=== PATIENT | female | born 2000 | race Caucasian/White ===

== ENCOUNTER 2020-03-06 19:14 | Inpatient (IN) | payer OTHER ==
[~2020-03-06] VITALS: Ht 166.4 cm; Wt 70.0 kg
--- OUTSIDE RECORDS SUMMARY | ~2020-03-06 | XMS | Encounter Summary ---
Demographics + + + | Address | [address] | | | [place] [address] | + + + | Home Phone | | + + + | Preferred Language | Unknown | + + + | Marital Status | Single | + + + | Scientologist Affiliation | Unknown | + + + | Race | White | + + + | Ethnic Group | Not or | + + + Author + + + | Author | [facility] | + + + | Organization | [facility] | + + + | Address | Unknown | + + + | Phone | Unavailable | + + + Support + + +---------+ + | Name | Relationship | Address | Phone | + + +---------+ + | Raheem | ECON | Unknown | | | Raza | | | | + + +---------+ + Care Team Providers + +------+ + | Care Front End Developer Designer Name | Role | Phone | + +------+ + | No Pcp Per Patient | PCP | Unavailable | + +------+ + Reason for Visit + + + | Reason | Comments | + + + | Obstetric US Scan | | + + + Encounter Details +--------+ + + + + | Date | Type | Department | Care Team | Description | +--------+ + + + + | 07/28/ | | [place] | [place], | Obstetric US Scan | | 2019 | | [facility] [address] | MD Lizabeth [address] | | | [address] | | | | | [address] [place], [place] | [place], [place] | | | | | [address] | [address] | | | | | [phone] | [phone] | | | | | | | | +--------+ + + + + Social History + + + +--------+------+ | Tobacco Use | Types | Packs/Day | Years | Date | | | | | Used | | + + + +--------+------+ | Current Every Day | Cigarettes | | 3 | | | Smoker | | | | | + + + +--------+------+ + +---+---+---+ | Smokeless Tobacco: | | | | | Never Used | | | | + +---+---+---+ + + | Comments: will review SCRIPT book | + + + + +---------+ + | Alcohol Use | Drinks/Week | oz/Week | Comments | + + +---------+ + | Not Currently | | | | + + +---------+ + + + + | Sex Assigned at | Date Recorded | | | | + + + | Not on file | | + + + + + + + | Job Start Date | Occupation | Industry | + + + + | Not on file | Not on file | Not on file | + + + + + + + + | Travel History | Travel Start | Travel End | + + + + + + | No recent travel history available. | + + documented as of this encounter Last Filed Vital Signs + + + + + | Vital Sign | Reading | Time Taken | Comments | + + + + + | Blood Pressure | 102/60 | 07/28/2019 9:02 AM | | | | | PDT | | + + + + + | Pulse | - | - | | + + + + + | Temperature | - | - | | + + + + + | Respiratory Rate | - | - | | + + + + + | Oxygen Saturation | - | - | | + + + + + | Inhaled Oxygen | - | - | | | Concentration | | | | + + + + + | Weight | 56.7 kg (125 lb) | 07/28/2019 9:02 AM | | | | | PDT | | + + + + + | Height | 167 cm (5' 5.75") | 07/28/2019 9:02 AM | | | | | PDT | | + + + + + | Body Mass Index | 20.33 | 07/28/2019 9:02 AM | | | | | PDT | | + + + + + documented in this encounter Progress Notes Lizabeth Paez MD - 07/28/2019 9:15 AM PDTHistory: 18 y.o. at 8w1d by LMP p resenting for a first trimester OB ultrasound. S: Tanisha is a at 8w1d who presents today for a first trimester ultrasound. She com planes of congestion in the morning. O: General: NAD Abdomen: Soft, gravid. Psych: Appropriate mood and affect Ultrasound performed today -viable . See imaging for full details of ultrasound. A: Tanisha is a at 8w1d who presents today for a first trimester ultrasound. P: 1. OB intake to follow 2. Genetic testing- Discussed watching video with nurse during intake. 3. Patient to follow up for OB exam. Viable hurt with CRL measuring 1.53cm, consistent with 8w0d. FHR: 142 bpm Placenta: Not Visualized Uterus: normal Right Ovary: Not visualized Left Ovary: Not visualized Impression: 18 y.o. at 8w1d weeks gestation. Ultrasound consistent with menstrual dating. Recommendations: I reviewed the findings of today's ultrasound with Tanisha Michel I recommend a follow up ultrasound for complete anatomy 18-22 weeks gestation. Completed and reviewed by Lizabeth Paez MD on 07/28/19 Janessa Lucas MA - 07/28/2019 9:15 AM PDTPt c/o rhinitis in the morning. JANESSA BRITO MA Electronically si gned by Janessa Brito MA at 07/28/2019 9:25 AM PDTdocumented in this encounter Plan of Treatment +--------+ + + + + | Date | Type | Specialty | Care Team | Description | +--------+ + + + + | 03/08/ | | Obstetrics & | Ama Rahman | | | 2020 | | Gynecology | MD Vickie,S [address] | | | | | | [place], | | | | | | [place] [address] | | | | | | [phone] | | | | | | | | +--------+ + + + + documented as of this encounter Procedures + +--------+ + + + | Procedure Name | Priori | Date/Time | Associated Diagnosis | Comments | | | ty | | | | + +--------+ + + + | US CLINIC OB <14 | Routin | 07/28/2019 | Supervision of | Results for this | | WEEKS SINGLE FETUS | e | 9:24 AM | low-risk , | procedure are in the | | | | PDT | first trimester | results section. | + +--------+ + + + documented in this encounter Results CLINIC OB <14 WEEKS SINGLE FETUS (07/28/2019 9:24 AM PDT) + + + | Impressions | Performed At | + + + | Viable hurt with CRL measuring 1.53cm, consistent | [facility] | | with 8w0d. FHR: 142 bpm Placenta: Not Visualized Uterus: normal | [facility] | | Right Ovary: Not visualized Left Ovary: Not visualized | | | Impression: 18 y.o. at 8w1d weeks gestation. Ultrasound | | | consistent with menstrual dating. Recommendations: I reviewed | | | the findings of today's ultrasound with Tanisha Michel I | | | recommend a follow up ultrasound for complete anatomy 18-22 weeks | | | gestation. Completed and reviewed by Lizabeth Paez MD on | | | 07/28/19 | | + + + + +---------+ + + | Performing | Address | City/State/Zipcode | Phone Number | | Organization | | | | + +---------+ + + | [facility] | | | | | TESTING | | | | + +---------+ + + documented in this encounter Visit Diagnoses + + | Diagnosis | + + | Supervision of low-risk , first trimester - Primary | + + documented in this encounter
--- OUTSIDE RECORDS SUMMARY | ~2020-03-06 | XMS | Encounter Summary ---
Demographics + + + | Address | [address] | | | [place] [address] | + + + | Home Phone | | + + + | Preferred Language | Unknown | + + + | Marital Status | Single | + + + | Nondenominational Affiliation | Unknown | + + + | Race | White | + + + | Ethnic Group | Not or | + + + Author + + + | Author | [facility] | + + + | Organization | [facility] | + + + | Address | [...] Team Providers + +------+ + | Care Layaway Clerk Name | Role | Phone | + +------+ + | No Pcp Per Patient | PCP | Unavailable | + +------+ + Reason for Visit Maternity Services (Routine) + +--------+ + + + + | Status | Reason | Specialty | Diagnoses / | Referred By | Referred To | | | | | Procedures | Contact | Contact | + +--------+ + + + + | Authorized | | | Diagnoses | Josiah | Maria Ines [facility] | | | | | Supervision | Ama Johnston, | Telemedicine | | | | | of high | [facility] [address] | | | | [address] | | | | | | [place], | [place], | | | | | | [place] | [place] | | | | | | [address] | [address] | | | | | | Phone: | Phone: | | | | | | [phone] | [phone] | | | | | | Fax: | Fax: | | | | | | [phone] | [phone] | + +--------+ + + + + Encounter Details +--------+ + + + + | Date | Type | Department | Care Team | Description | +--------+ + + + + | 12/17/ | Ancillary | Perinatology | | | | 2019 | Procedure | Telemedicine [address] | | | | | | | | | | | | [place], [place] | | | | | | [address] | | | | | | [phone] | | | +--------+ + + + [...] recent travel history available. | + + + + + + | COVID-19 Exposure | Response | Date Recorded | + + + + | In the last month, have you been in contact | No / Unsure | 12/18/2019 8:41 AM | | with someone who was confirmed or | | PDT | | suspected to have Coronavirus / COVID-19? | | | + + + + documented as of this encounter Plan of Treatment +--------+ + + + + | Date | Type | Specialty | Care Team | Description | +--------+ + + + + | 03/08/ | | Obstetrics & | Ama Rahman | | | 2019 | | Gynecology | MD Vickie,S [address] | | | | | | [place], | | | | | | [place] [address] | | | | | | [phone] | | | | | | | | +--------+ + + + + documented as of this encounter Procedures + +--------+ + + + | Procedure Name | Priori | Date/Time | Associated Diagnosis | Comments | | | ty | | | | + +--------+ + + + | TELEMEDICINE | Routin | 12/18/2019 | | Results for this | | ULTRASOUND | e | 8:42 AM | screening for | procedure are in the | | | | PDT | chromosomal anomaly | results section. | | | | | by amniocentesis | | + +--------+ + + + documented in this encounter Results TELEMEDICINE ULTRASOUND (12/18/2019 8:42 AM PDT) + + | Specimen | + + | | + + + + + | Narrative | Performed At | + + + | [facility] | [facility] | | OBSTETRICAL ULTRASOUND REPORT | RADIOLOGY OB US | | | | | Pat. Name: TANISHA LANDRUM Pat. No: [id number] Study | | | Date: 12/18/2019 9:31am , Age: 02 2000, 19 | | | Pregnancies: 2, Para 0010 LMP: 06/01/2019 | | | GA by LMP: 28w4d GA by Last: 28w4d GA by US: 28w5d GA | | | Selected: 28w4d (From Known E) LAUREN: 03/07/2020 | | | Referring MD: Ita Glasgow MD Wellness Assistant: Debra Ayon CPT4: | | | 13272 | | | | | | MEASUREMENTS & AGE GROWTH EVALUATION | | | Measurement GA Range Srce %for GA Ratios | | | ----- ---- ------- BPD 7.4 | | | cm 29w4d (23w3y-27a5g) Hadl BPD 70% FL/BPD 0.73 (0.71 - 0.87) HC | | | 27.7 cm 30w2d (00m6m-44u4n) Hadl HC 75% FL/AC 0.23 (0.20 - 0.24) | | | AC 23.7 cm 28w0d (98r4j-63p6s) Hadl AC 38% HC/AC 1.17 (0.99 - | | | 1.18) FL 5.4 cm 28w4d (52r8g-08l5e) Hadl FL 49% CI 0.75 | | | (0.70 - 0.86) GA for sonogram 28w5d (77a2r-00s5y) Weight | | | Estimate: based on (BPD,HC,AC,FL) Hadlock Weight: 1232 gm | | | (1052-1412gm) Had | | | : 2lbs, 11oz | | | Normal: 1241 gm (839-1791gm) Bren | | | Wt% 49% for 28w4d Heart | | | Rate: 144 bpm Amniotic Fluid Index: 10.6cm (09.3-23.0) Q1: 3.5cm | | | Q2: 1.1cm Q3: 2.9cm Q4: 3.0cm | | | | | | EVAL, PLACENTA Presentation: Cephalic Placenta: | | | Posterior Previa: No previa seen Cord Insert: Normal Heart | | | Rate: 144 bpm Anatomy!Normal!Abnormal!Suboptimal!Prev. | | | Seen!Comments | | | | | | Cranium ! x ! ! ! x | | | ! CSP ! x ! ! ! | | | ! Cerebral Vent! x ! ! ! | | | ! Choroid Plexu! ! ! ! | | | x ! Cerebellum ! x ! ! ! | | | x ! Cisterna Magn! ! ! ! | | | x ! Nuchal Fold ! ! ! ! | | | x ! Nose/Lips ! x ! ! ! | | | ! Face/Profile ! x ! ! ! | | | ! Nasal Bone ! ! ! ! | | | x ! Palate/Mandib! ! ! ! | | | x ! Orbits ! x ! ! | | | ! x ! Chest/Lungs/R! ! ! | | | ! x ! Cardiac [place]/! ! ! | | | ! x ! Four Chamber ! ! ! | | | ! x ! LVOT ! x ! ! | | | ! ! RVOT ! x ! ! | | | ! x ! 3V Trachael V! x ! ! | | | ! ! IVC/SVC ! ! ! | | | ! x ! Aortic Arch ! ! ! | | | ! x ! Diaphragm ! x ! ! | | | ! ! Stomach ! x ! | | | ! ! x ! Situs ! ! | | | ! ! x ! Gallbladder ! ! | | | ! ! x ! Liver/Spleen ! ! | | | ! ! x ! Bowel ! ! | | | ! ! x ! 3VC ! | | | ! ! ! x ! Abdominal Wal! | | | ! ! ! x ! Kidneys ! | | | ! ! ! x ! Bladder | | | ! x ! ! ! x ! Cervical | | | Spin! ! ! ! x ! Thoracic | | | Spin! ! ! ! x ! Lumbar | | | Spine ! ! ! ! x ! Sacral | | | Spine ! ! ! ! x ! Right | | | Humerus! ! ! ! x ! Right | | | Radius/! ! ! ! x ! Right | | | Hand ! ! ! ! x ! Left | | | Humerus ! ! ! ! x ! Left | | | Radius/U! ! ! ! x ! Right | | | Femur ! ! ! ! x ! | | | Right Tibia/F! ! ! ! x ! | | | Right Foot ! ! ! ! x ! | | | Left Femur ! ! ! ! x ! | | | Left Tibia/Fi! ! ! ! x ! | | | Left Foot ! ! ! ! x | | | ! Skin ! ! ! ! x | | | ! Sex (M) ! x ! ! ! | | | x ! Sex ! ! ! ! | | | x ! | | | | | | CLINICAL SUMMARY Type of Gestation: Del Rosario Uterus and adnexae: | | | No abnormalities seen. There is heart motion and gross | | | movement. Ultrasound cannot detect all / abnormalities. | | | Impression: 19 year old at 28 4/7 weeks gestation with a | | | history of LMP=8 wks US in office who presents for follow up | | | anatomy. 1. Single living intrauterine in cephalic | | | presentation. 2. Posterior placenta without placenta previa. 3. | | | Growth is appropriate, consistent with 28 4/7th weeks gestation. 4. | | | Targeted anatomic survey with no major abnormalities | | | identified. Anatomy is now completed. Recommendations: 1. Follow up | | | ultrasound as clinically indicated. Thank you very much for allowing | | | us to help care for your patient. If you have any questions, please | | | feel free to call our 24 hour phone consult number at any time and | | | ask for the perinatologist plastic injection mold maker. [phone] or [phone] | | | SUNITHA LIPSCOMB MD <Electronic Signature> 12/18/2019 | | | 10:58am I have personally reviewed the images and, if | | | necessary, edited the report. I agree with the report as now | | | presented. | | + + + + + | Procedure Note | + + | Service Account, Radiant Res In Interface - 12/18/2019 3:43 PM PDT | | [facility] OBSTETRICAL ULTRASOUND | | REPORT Pat. Name: | | TANISHA LANDRUM MPat. No: [id number] Date: 12/18/2019 9:31amDOB, Age: | | 2000, 19Pregnancies: 2, Para 0010LMP: 06/01/2019 GA by LMP: | | 80x8rXS by Last: 86m3lYG by US: 31s4oWP Selected: 28w4d (From Known E)LAUREN: | | 03/07/2020Referring MD: Ita Glasgow MDSonographer: Lloyd Ayon4: | | [id number] | | & AGE GROWTH EVALUATIONMeasurement GA Range Srce %for | | GA Ratios ----- ---- ------- BPD 7.4 | | cm 29w4d (67y4q-54p2f) Hadl BPD 70% FL/BPD 0.73 (0.71 - 0.87)HC 27.7 cm 30w2d | | (19u5r-83a2p) Hadl HC 75% FL/AC 0.23 (0.20 - 0.24)AC 23.7 cm 28w0d (95j3o-26c4y) Hadl | | AC 38% HC/AC 1.17 (0.99 - 1.18)FL 5.4 cm 28w4d (92n8h-38m9p) Hadl FL 49% CI | | 0.75 (0.70 - 0.86)GA for sonogram 28w5d (80u9w-44e2l) Weight Estimate:based on | | (BPD,HC,AC,FL) Hadlock Weight: 1232 gm (1052-1412gm) Had | | : 2lbs, 11oz Normal: 1241 gm | | (839-1791gm) Bren Wt% 49% for 21y1jZtieg Heart | | Rate: 144 bpmAmniotic Fluid Index: 10.6cm (09.3-23.0)Q1: 3.5cm Q2: 1.1cm Q3: 2.9cm | | Q4: 3.0cm | | | | EVAL, PLACENTAPresentation: CephalicPlacenta: PosteriorPrevia: No previa seenCord | | Insert: NormalFetal Heart Rate: 144 bpmFetal Anatomy!Normal!Abnormal!Suboptimal!Prev. | | Seen!Comments Crani | | um ! x ! ! ! x !CSP ! x ! ! ! | | !Cerebral Vent! x ! ! ! !Choroid Plexu! ! | | ! ! x !Cerebellum ! x ! ! ! x !Cisterna | | Magn! ! ! ! x !Nuchal Fold ! ! ! ! | | x !Nose/Lips ! x ! ! ! !Face/Profile ! x ! | | ! ! !Nasal Bone ! ! ! ! x | | !Palate/Mandib! ! ! ! x !Orbits ! x ! ! | | ! x !Chest/Lungs/R! ! ! ! x !Cardiac [place]/! | | ! ! ! x !Four Chamber ! ! ! ! x | | !LVOT ! x ! ! ! !RVOT ! x ! ! | | ! x !3V Trachael V! x ! ! ! !IVC/SVC ! | | ! ! ! x !Aortic Arch ! ! ! ! x | | !Diaphragm ! x ! ! ! !Stomach ! x ! ! | | ! x !Situs ! ! ! ! x !Gallbladder ! | | ! ! ! x !Liver/Spleen ! ! ! ! x | | !Bowel ! ! ! ! x !3VC ! ! ! | | ! x !Abdominal Wal! ! ! ! x !Kidneys ! | | ! ! ! x !Bladder ! x ! ! ! x | | !Cervical Spin! ! ! ! x !Thoracic Spin! ! ! | | ! x !Lumbar Spine ! ! ! ! x !Sacral Spine ! | | ! ! ! x !Right Humerus! ! ! ! x | | !Right Radius/! ! ! ! x !Right Hand ! ! ! | | ! x !Left Humerus ! ! ! ! x !Left Radius/U! | | ! ! ! x !Right Femur ! ! ! ! x | | !Right Tibia/F! ! ! ! x !Right Foot ! ! ! | | ! x !Left Femur ! ! ! ! x !Left Tibia/Fi! | | ! ! ! x !Left Foot ! ! ! ! x | | !Skin ! ! ! ! x !Sex (M) ! x ! ! | | ! x !Sex ! ! ! ! x | | ! CLINICAL | | SUMMARYType of Gestation: SingletonUterus and adnexae: No abnormalities seen.There is | | heart motion and gross movement.Ultrasound cannot detect all / | | abnormalities.Impression: 19 year old at 28 4/7 weeks gestation with a history | | of LMP=8 wks US in office who presents for follow up anatomy.1. Single living | | intrauterine in cephalic presentation.2. Posterior placenta without placenta | | previa. 3. Growth is appropriate, consistent with 28 4/7th weeks gestation.4. Targeted | | anatomic survey with no major abnormalities identified. Anatomy is now | | completed.Recommendations:1. Follow up ultrasound as clinically indicated.Thank you very | | much for allowing us to help care for your patient. If you have any questions, please | | feel free to call our 24 hour phone consult number at any time and ask for the | | perinatologist plastic injection mold maker. [phone] or [phone], JAMIE, | | <Electronic Signature> 12/18/2019 10:58amI have personally reviewed the | | images and, if necessary, edited the report. I agree with the report as now presented. | |Liver/Spleen ! ! ! ! x ! | |Bowel ! ! ! ! x ! | |3VC ! ! ! ! x ! | |Abdominal Wal! ! ! ! x ! | |Kidneys ! ! ! ! x ! | |Bladder ! x ! ! ! x ! | |Cervical Spin! ! ! ! x ! | |Thoracic Spin! ! ! ! x ! | |Lumbar Spine ! ! ! ! x ! | |Sacral Spine ! ! ! ! x ! | |Right Humerus! ! ! ! x ! | |Right Radius/! ! ! ! x ! | |Right Hand ! ! ! ! x ! | |Left Humerus ! ! ! ! x ! | |Left Radius/U! ! ! ! x ! | |Right Femur ! ! ! ! x ! | |Right Tibia/F! ! ! ! x ! | |Right Foot ! ! ! ! x ! | |Left Femur ! ! ! ! x ! | |Left Tibia/Fi! ! ! ! x ! | |Left Foot ! ! ! ! x ! | |Skin ! ! ! ! x ! | |Sex (M) ! x ! ! ! x ! | |Sex ! ! ! ! x ! | | | |CLINICAL SUMMARY | |Type of Gestation: Del Rosario | |Uterus and adnexae: No abnormalities seen. | |There is heart motion and gross movement. | |Ultrasound cannot detect all / abnormalities. | |Impression: 19 year old at 28 4/7 weeks gestation with a | |history of LMP=8 | |wks US in office who presents for follow up anatomy. | |1. Single living intrauterine in cephalic presentation. | |2. Posterior placenta without placenta previa. | |3. Growth is appropriate, consistent with 28 4/7th weeks | |gestation. | |4. Targeted anatomic survey with no major abnormalities | |identified. Anatomy is now completed. | |Recommendations: | |1. Follow up ultrasound as clinically indicated. | |Thank you very much for allowing us to help care for your patient. | |If you have any questions, please feel free to call our 24 hour | |phone consult number at any time and ask for the perinatologist on | |call. [phone] or [phone] | |SUNITHA LIPSCOMB MD | | | |<Electronic Signature> 12/18/2019 10:58am | | | | | |I have personally reviewed the images and, if necessary, edited the report. I agree with t he report as now presented. | + + + +---------+ + + | Performing | Address | City/State[facility] | Phone Number | | Organization | | | | + +---------+ + + | [facility] | | | | | [place] | | | | + +---------+ + + documented in this encounter Visit Diagnoses + + | Diagnosis | + + | screening for chromosomal anomaly by amniocentesis Screening for | | chromosomal anomalies by amniocentesis | + + documented in this encounter"
--- OUTSIDE RECORDS SUMMARY | ~2020-03-06 | XMS | Encounter Summary ---
Demographics + + + | Address | [address] | | | [place] [address] | + + + | Home Phone | | + + + | Preferred Language | Unknown | + + + | Marital Status | Single | + + + | Episcopal Affiliation | Unknown | + + + | Race | White | + + + | Ethnic Group | Not or | + + + Author + + + | Organization | Unknown | + + + | Address | [...] Team Providers + +------+ + | Care Buyer Assistant Name | Role | Phone | + +------+ + | No Pcp Per Patient | PCP | Unavailable | + +------+ + Encounter Details +--------+--------+ + + + | Date | Type | Department | Care Team | Description | +--------+--------+ + + + | 11/05/ | Travel | | | | | 2020 | | | | | +--------+--------+ + + + Social History + + [...] 2020 | | Gynecology | MD Vickie,S [address] | | | | | | [place], | | | | | | [place] [address] | | | | | | [phone] | | | | | | | | +--------+ + + + + documented as of this encounter Visit Diagnoses Not on filedocumented in this encounter"
--- OUTSIDE RECORDS SUMMARY | ~2020-03-06 | XMS | Encounter Summary ---
Demographics + + + | Address | [address] | | | [place] [address] | + + + | Home Phone | | + + + | Preferred Language | Unknown | + + + | Marital Status | Single | + + + | Mu-Ism Affiliation | Unknown | + + + [...] Team Providers + +------+ + | Care Low Heel Builder Name | Role | Phone | + +------+ + | No Pcp Per Patient | PCP | Unavailable | + +------+ + Encounter Details +--------+--------+ + + + | Date | Type | Department | Care Team | Description | +--------+--------+ + + + | 05/18/ | Travel | | | | | [...] in contact | No / Unsure | 02/16/2020 7:52 AM | | with someone who was [...] 2020 | | Gynecology | MD Vickie,S [address] | | | | | | [place], | | | | | | [place] [address] | | | | | | [phone] | | | | | | | | +--------+ + + + + documented as of this encounter Visit Diagnoses Not on filedocumented in this encounter"
--- OUTSIDE RECORDS SUMMARY | ~2020-03-06 | XMS | Encounter Summary ---
Demographics + + + | Address | [address] | | | [place] [address] | + + + | Home Phone | | + + + | Preferred Language | Unknown | + + + | Marital Status | Single | + + + | Jain Affiliation | Unknown | + + + | Race | White | + + + | Ethnic Group | Not or | + + + Author + + + | Author | [facility] | + + + | Organization | [facility] | + + + | Address [...] Team Providers + +------+ + | Care Kindergarten Paraprofessional Name | Role | Phone | + +------+ + | No Pcp Per Patient | PCP | Unavailable | + +------+ + Reason for Visit + + + | Reason | Comments | + + + | care | | + + + Encounter Details +--------+ + + + + | Date | Type | Department | Care Team | Description | +--------+ + + + + | 02/15/ | | [place] | Philippe, | care | | 2019 | | [facility] [address] | MD Lizabeth [address] | | | | [address] | | | | [address] [place], [place] | [facility] | | | | | [address] | [address] | | | | | [phone] | [phone] | | | | | | | [...] + + + | Blood Pressure | 102/70 | 02/16/2020 7:58 AM | | | | | PDT [...] + + + + | Weight | 68.9 kg (152 lb) | 02/16/2020 7:58 AM | | | | | PDT | | + + + + + | Height | - | - | | + + + + + | Body Mass Index | 24.72 | 07/28/2019 9:25 AM | | | | | PDT | | + + + + + documented in this encounter Patient Instructions Patient Instructions Cori Campos MA - 02/16/2020 8:00 AM PDTContinue to monitor for an y contractions, fluid leakage, bleeding or decreased movement. If you have bleeding or decreased movement, are in labor or think your water has broken, please go to [facility] ([facility]). Please call if you have any concerns. After hours call [facility] if you think you are in labor to let them know you are coming in. [phone]. Please read chapters 11 and 32 in your book. Week 37 of Your : Care Instructions Your Care Instructions You are near the end of your and you're probably pretty uncomfortable. It may b e harder to walk around. Lying down probably isn't comfortable either. You may have trouble getting to sleep or staying asleep. Most women deliver their babies between 37 and 42 weeks. This is a good time to think about packing a bag for the hospital with items you'll need. Then you'll be ready when labor star ts. Follow-up care is a pena part of your treatment and safety. Be sure to make and go to all ap pointments, and call your doctor if you are having problems. It's also a good idea to know y our test results and keep a list of the medicines you take. How can you care for yourself at home? Learn about is best for your baby and good for you. Breast milk has antibodies to help your baby fight infections. Mothers who breastfeed often lose weight faster, because making milk copeland calories. Learning the best ways to hold your baby will make easier. Let your partner bathe and diaper the baby to keep your partner from feeling left out. S nuggle together when you breastfeed. You may want to learn how to use a breast pump and store your milk. If you choose to bottle feed, make the feeding feel like so you can rizzo w ith your baby. Always hold your baby and the bottle. Do not prop bottles or let your baby fa ll asleep with a bottle. Learn about crying It is common for babies to cry for 1 to 3 hours a day. Some cry more, some cry less. Babies don't cry to make you upset or because you are a bad parent. Crying is how your baby communicates. Your baby may be hungry; have gas; need a diaper c hange; or feel cold, warm, tired, lonely, or tense. Sometimes babies cry for unknown reasons . If you respond to your baby's needs, he or she will learn to trust you. Try to stay calm when your baby cries. Your baby may get more upset if he or she senses that you are upset. Know how to care for your Your baby's umbilical cord stump will drop off on its own, usually between 1 and 2 weeks . To care for your baby's umbilical cord area: ? Clean the area at the bottom of the cord 2 or 3 times a day. ? Pay special attention to the area where the cord attaches to the skin. ? Keep the diaper folded below the cord. ? Use a damp washcloth or cotton ball to sponge bathe your baby until the stump has come of f. Your baby's first dark stool is called meconium. After the meconium is passed, your baby will develop his or her own bowel pattern. ? Some babies, especially breastfed babies, have several bowel movements a day. Others have one or two a day, or one every 2 to 3 days. ? Breastfed babies often have loose, yellow stools. Formula-fed babies have more formed sto ols. ? If your baby's stools look like little pellets, he or she is constipated. After 2 days of constipation, call your baby's doctor. If your baby will be circumcised, you can care for him at home. ? Gently rinse his penis with warm water after every diaper change. Do not try to remove th e film that forms on the penis. This film will go away on its own. Pat dry. ? Put petroleum ointment, such as Vaseline, on the area of the diaper that will touch your baby's penis. This will keep the diaper from sticking to your baby. ? Ask the doctor about giving your baby acetaminophen (Tylenol) for pain. Where can you learn more? To learn more about "Week 37 of Your : Care Instructions", log into your MiNOWireless a ccount at [email or web address]. You can enter N257 in the "[employer] Library" search box . Not on MiNOWireless? Review the Intean Poalroath Rongroeurngt section of your After Visit Summary for directions on otto rodriguez to sign up. Current as of: June 05, 2018 Content Version: [id number] [employer]. Care instructions adapted under license by [facility] & [facility]. If you have questions about a medical condition or this instr uction, always ask your healthcare professional. [employer] disclaims any barbara anty or liability for your use of this information. documented in this encounter Progress Notes Lizabeth Paez MD - 02/16/2020 8:00 AM PDTS: Tanisha is a at 37w1d who prese nts today for a routine OB visit. Today she has been having some maurilio diop contractions and lower back pain. She has good movement. O: BP 102/70 | Wt 68.9 kg (152 lb) | BMI 24.72 kg/m | BSA 1.79 m General: NAD Abdomen: Soft, gravid. Psych: Appropriate mood and affect A: Tanisha is a at 37w1d who presents today for a routine OB visit. P: F/u in 1 week for a routine OB visit. GBS collected today. Growth and AMANDA normal today. documented in th is encounter Plan of Treatment +--------+ + + + + | Date | Type | Specialty | Care Team | Description | +--------+ + + + + | 03/08/ | | Obstetrics & | Ama Rahman | | 2019 | | Gynecology | MD Vickie,S [address] | | | | | | [place], | | | | | | [place] [address] | | | | | | [phone] | | | | | | | | +--------+ + + + + documented as of this encounter Procedures + +--------+ + + + | Procedure Name | Priori | Date/Time | Associated Diagnosis | Comments | | | ty | | | | + +--------+ + + + | CLINIC OB FOLLOW | Routin | 02/16/2020 | Uterine size-date | Results for this | | UP PER [facility]ETUS | e | | discrepancy in third | procedure are in the | | | | | trimester | results section. | + +--------+ + + + documented in this encounter Results CLINIC OB FOLLOW UP PER [facility]ETUS (02/16/2020) + + + | Impressions | Performed At | + + + | History: 19 y.o. at 37w1d gestation presenting for a | [facility] | | growth scan secondary to size less than dates. Findings: [facility] | CARE TESTING | | in cephalic presentation. Placenta: Anterior FHR: 153 bpm BPD: | | | 9.16 cm (67.6%) 37w 1d HC: 32.10 cm (9.6%) 36w 2d AC: 31.91 cm (27%) | | | 35w 6d FL: 7.04 cm (23.2%) 36w 1d EFW: 2845 grams (6lb 4 oz) | | | (45.6% for GA) AMANDA: 11.56 cm MVP: 3.71 cm Impression: | | | 19 y.o. at 37w1d gestation with normal growth at the | | | 45.6%ile and normal AMANDA. Recommendations: Follow up as | | | clinically indicated. Performed by Lizabeth Paez MD. Type | | | of ultrasound: ABDOMINAL. Read by Lizabeth Paez MD | | + + + + +---------+ [...] Diagnosis | + + | Supervision of high risk in third trimester - Primary Unspecified high-risk | | | + + | Encounter for screening for Streptococcus B | + + | Uterine size-date discrepancy in third trimester Uterine size date discrepancy, | | antepartum condition or complication | + + documented in this encounter
--- OUTSIDE RECORDS SUMMARY | ~2020-03-06 | XMS | Encounter Summary ---
Demographics + + + | Address | [address] | | | [place] [address] | + + + | Home Phone | | + + + | Preferred Language | Unknown | + + + | Marital Status | Single | + + + | Judaism Affiliation | Unknown | + + + [...] Team Providers + +------+ + | Care Carry All Driver Name | Role | Phone | + +------+ + | No Pcp Per Patient | PCP | Unavailable | + +------+ + Encounter Details +--------+--------+ + + + | Date | Type | Department | Care Team | Description | +--------+--------+ + + + | 03/01/ | Travel | | | | | [...] in contact | No / Unsure | 03/01/2020 10:28 AM | | with someone who was [...] 2020 | | Gynecology | MD Vickie,S [address] | | | | | | [place], | | | | | | [place] [address] | | | | | | [phone] | | | | | | | | +--------+ + + + + documented as of this encounter Visit Diagnoses Not on filedocumented in this encounter"
--- OUTSIDE RECORDS SUMMARY | ~2020-03-06 | XMS | Encounter Summary ---
Demographics + + + | Address | [address] | | | [place] [address] | + + + | Home Phone | | + + + | Preferred Language | Unknown | + + + | Marital Status | Single | + + + | Oriental Orthodox Affiliation | Unknown | + + + [...] Team Providers + +------+ + | Care Carton Stenciler Name | Role | Phone | + +------+ + | No Pcp Per Patient | PCP | Unavailable | + +------+ + Encounter Details +--------+--------+ + + + | Date | Type | Department | Care Team | Description | +--------+--------+ + + + | 09/15/ | Travel | | | | | 2019 | | | | | +--------+--------+ + [...] E | | | | | | [place], | | | | | | [place] [address] | | | | | | [phone] | | | | | | | | +--------+ + + + + documented as of this encounter Visit Diagnoses Not on filedocumented in this encounter"
--- OUTSIDE RECORDS SUMMARY | ~2020-03-06 | XMS | Encounter Summary ---
Demographics + + + | Address | [address] | | | [place] [address] | + + + | Home Phone | | + + + | Preferred Language | Unknown | + + + | Marital Status | Single | + + + | Church Affiliation | Unknown | + + + | Race | White | + + + | Ethnic Group | Not or | + + + Author + + + | Author | [facility] | + + + | Organization | [facility] | + + + | [...] Team Providers + +------+ + | Care Fleet Assistant Name | Role | Phone | + +------+ + | No Pcp Per Patient | PCP | Unavailable | + +------+ + Encounter Details +--------+ + + + + | Date | Type | Department | Care Team | Description | +--------+ + + + + | 12/31/ | Telephone-S | [place] | Ama Rahman | No Show | | 2019 | cheduled | [facility] [address] | MD Vickie,S [address] | | | | | [address] [facility] | [place], | | | | | [address] [place], [place] | [place] [address] | | | | | [address] | [phone] | | | | | [phone] | | | +--------+ + + + [...] + + documented as of this encounter Patient Instructions Patient Instructions Yves Ambrocio MA - 01/01/2020 8:32 AM PDTPrenatal Visit - Week 30 Please read chapters 8 and 30 in your book. You may be getting tired of all these messages about nutrition. However, it really is that important now and for the rest of your life. Your health and the health of your child rosendo depend on the nutritional choices you make NOW. Your qwtu-tl-ly-born baby will learn hi s/her first nutritional lessons from you. Remember, it s mostly about QUALITY. Eat whole foods, nutritious foods, unprocessed food s. Avoid food that has added sugar, fat, and salt. Avoid food from fast food restaur ants. Cook and prepare food at home. Stop drinking soft drinks. Have a small, healthy snack in between your meals. Have some protein and avoid too many ca rbohydrates (sugar and starch). There is still plenty of time in your to change your nutritional habits ..and b oth you and your baby will benefit from it. Are you having difficulty making healthy choice s?.....call us ..we ll get you together with our framing specialist. your baby We want you to breastfeed your baby. Your tongue presser wants you to breastfeed your baby. Every health authority on Earth wants you to breastfeed your baby. Breastfed babies are he althier. Period. Breastfed babies have fewer allergies. Breastfed babies have fewer illnesses. Breastfed b abies are less likely to have weight problems later in life. Breast is best. Even if you can only breastfeed your baby for a few days or weeks, the milk that your baby receives from your body will make him/her healthier. We want to help you and your baby get off to a good start. It s not always easy to get t o the point where you offer the breast and your baby effortlessly latches to the nipple in fact, for some women, it can be quite difficult. is an art that both you and your baby will need some time and effort to perfect. But we can help you. After the of your baby, our nurses will help get you started wi th the real thing .and, although you have breasts and your baby has an instinct to suck , it takes a little learning and experience to get the two of you latched together. But, we ll be there to help. : How you feed your is a personal choice. The experts agree that breas tfeeding is best. The [place] [employer] recommends exclusive , sta rting as soon as possible after delivery, for 6 months and continuing for at least one year. The longer and more exclusively a mother breastfeeds her baby, the greater the health benefi ts they both receive. As you consider how you will feed your baby, talk to your provider, your baby s provider, your partner, family members and friends who have breastfed their babies. You also might fi nd it helpful to talk to a addictions recovery specialist. They can tell you more about things such as latching your baby, positioning, milk supply and pumping and storing your breast milk. The specialists in [facility] are: Wilma Linn, RN, IBCLC - [facility] Paige Kearney RN, IBCLC - [facility] Department In [facility]: Gerri Hopkins RN, IBCLC [phone] In [facility] [place]: Roseline Capps NP [phone] Gricelda Syed RN [phone] Further Sources for Support and Information: [facility] [place], [place] (Bilingual Pashto)- [phone] [email or web address] [facility] [place] [place] [phone] [email or web address] We encourage our patients to either register for the class or schedule a cons ult with one of the specialists. Breast Pumps Many, if not most, new mothers will benefit from having a good breast pump. A breast pump can: -help establish a good milk supply -provide your milk to a who might not be able to suck -help a mother whose nipples are flat or inverted -provide a means of obtaining and storing breast milk once your supply is well established. Many health insurance companies will now pay for you to have an electric breast pump (they know they ll save money in the long run since mothers and babies who breastfeed are health ier!). Call your insurance company and find out if you need a prescription from us to obtain your pump. We ll be more than happy to help. Planning your NEXT It may seem too early to talk about it but it s not. You need to start two conversa tions about control / family planning / contraception. One conversation with us, and another conversation with your mate. Spacing your babies too closely is not good for your health or theirs. And an unplanned pr egnancy can put a kink in anyone s life. We want you to be able to plan your next . Reliable control methods are vince dily available, easy to use, and can do a near-perfect job helping you to decide when you licona ve another . We re experts in contraception. Let s talk about it at your future visits. Let s licona ve a solid plan in place before you even have this baby. Forget the rumors; forget what you ve heard; bring an open mind to the possibilities. We can help find a family planning me thod that is best for you. Take charge of your fertility! You can plan when your occurs. It s still too early for that baby Here s another reminder about Labor call us, if you think you might be in labor. It is still way too early for your baby to be born. If you re in labor, we need time to get ready for your baby. The sooner you call us, the more time we have to prepare. So, if you have any of the following signs or symptoms, we want you to call and talk to us: ? Painful contractions of the uterus ? More than 4 contractions per hour ? A watery discharge from your vagina ? A bloody discharge from your vagina ? Constant pain on your uterus ? Uterine pain and signs/symptoms of infection (fever, chills, muscle aches, upper back chris n, or pain/burning when you urinate). Weeks 30 to 32 of Your : Care Instructions Your Care Instructions You have made it to the final months of your . By now, your baby is really startin g to look like a baby, with hair and plump skin. As you enter the final weeks of , the reality of having a baby may start to set in . This is the time to settle on a name, get your household in order, set up a safe nursery, and find quality maternal child nurse if needed. Doing these things in advance will allow you to focus on caring for and enjoying your new baby. You may also want to have a tour of your hospital 's labor and delivery unit to get a better idea of what to expect while you are in the [facility]. During these last months, it is very important to take good care of yourself and pay attent ion to what your body needs. If your doctor says it is okay for you to work, don't push your self too hard. Use the tips provided in this care sheet to ease heartburn and care for varic ose veins. If you haven't already had the Tdap shot during this , talk to your doctor about g etting it. It will help protect your against pertussis infection. Follow-up care is a pena part of your treatment and safety. Be sure to make and go to all ap pointments, and call your doctor if you are having problems. It's also a good idea to know y our test results and keep a list of the medicines you take. How can you care for yourself at home? Pay attention to your baby's movements You should feel your baby move several times every day. Your baby now turns less, and kicks and jabs more. Your baby sleeps 20 to 45 minutes at a time and is more active at certain times of day. If your doctor wants you to count your baby's kicks: ? Empty your bladder, and lie on your side or relax in a comfortable chair. ? Write down your start time. ? Pay attention only to your baby's movements. Count any movement except hiccups. ? After you have counted 10 movements, write down your stop time. ? Write down how many minutes it took for your baby to move 10 times. ? If an hour goes by and you have not recorded 10 movements, have something to eat or drink and then count for another hour. If you do not record 10 movements in either hour, call you r doctor. Ease heartburn Eat small, frequent meals. Do not eat chocolate, peppermint, or very spicy foods. Avoid drinks with caffeine, such as coffee, tea, and sodas. Avoid bending over or lying down after meals. Talk a short walk after you eat. If heartburn is a problem at night, do not eat for 2 hours before bedtime. Take antacids like Mylanta, Maalox, Rolaids, or Tums. Do not take antacids that have sod ium bicarbonate. Care for varicose veins Varicose veins are blood vessels that stretch out with the extra blood during . Your legs may ache or throb. Most varicose veins will go away after the . Avoid standing for long periods of time. Sit with your legs crossed at the ankles, not t he knees. Sit with your feet propped up. Avoid tight clothing or stockings. Wear support hose. Exercise regularly. Try walking for at least 30 minutes a day. Where can you learn more? To learn more about "Weeks 30 to 32 of Your : Care Instructions", log into your My Chart account at [email or web address]. You can enter X471 in the "Health Library" [facility] box. Not on RABThart? Review the MyChart section of your After Visit Summary for directions on ho w to sign up. Current as of: June 05, 2018 Content Version: [id number] [employer]. Care instructions adapted under license by [facility] [employer] & [facility]. If you have questions about a medical condition or this instr uction, always ask your healthcare professional. [employer] disclaims any barbara anty or liability for your use of this information. documented in this encounter Progress Notes Yves Ambrocio MA - 01/01/2020 8:32 AM PDT Ama Magana MD,[facility] - 12/30/2019 11:48 AM PDTTelephone E ncounter - Pt consented to a phone visit. Attempted to call pt multiple times, both at her appointment time as well as later, but no answer any time. Also called partner, but no answer. Left message on home phone and partne r's phone. [employer]'s cell phone number did not work. Will have schedulers reschedule pt. The patient's encounter was attempted via a telephone call today due to COVID-19 precaution enrique measures to limit the patient's unnecessary exposure. IUP @ 30w 4d: -PNC - UTD -Anatomy US - normal and complete -Tdap - previously declined, offer again at next in person visit -Tobacco use Ama Rahman MD,[facility] documented in this encounter Plan of Treatment +--------+ + + + + | Date | Type | Specialty | Care Team | Description | +--------+ + + + + | 03/08/ | | Obstetrics & | Ama Rahman | | | 2019 | | Gynecology | MD Vickie,S [address] | | | | | | [place], | | | | | | [place] [address] | | | | | | [phone] | | | | | | | | +--------+ + + + + documented as of this encounter Visit Diagnoses + + | Diagnosis | + + | Supervision of high risk in third trimester - Primary Unspecified high-risk | | | + + documented in this encounter
--- OUTSIDE RECORDS SUMMARY | ~2020-03-06 | XMS | Encounter Summary ---
Demographics + + + | Address | [address] | | | [place] [address] | + + + | Home Phone | | + + + | Preferred Language | Unknown | + + + | Marital Status | Single | + + + | Latter-Day Affiliation | Unknown | + + + | Race | White | + + + | Ethnic Group | Not or | + + + Author + + + | Author | [facility] | + + + | Organization | [facility] | + + + | [...] Team Providers + +------+ + | Care County Administrator Name | Role | Phone | + +------+ + | No Pcp Per Patient | PCP | Unavailable | + +------+ + Encounter Details +--------+ + + + + | Date | Type | Department | Care Team | Description | +--------+ + + + + | 04/18/ | Abstract | [place] | Popeye Segundo, | | | 2019 | | [facility] [address] | [place] [address] | | | | | [address] [facility] | [facility] | | | | | [address] [place] | [place], [place] | | | | | [address] | [address] | | | | | [phone] | | | +--------+ + + + + Social History + +-------+ +--------+------+ | Tobacco Use | Types | Packs/Day | Years | Date | | | | | Used | | + +-------+ +--------+------+ | Never Assessed | | | | | + +-------+ +--------+------+ + + + | Sex Assigned at [...] + + documented as of this encounter Progress Notes María Marcos, PA - 04/18/2019 2:37 PM PDTChart abstraction completed in preparatio n for OB Intake. General search for records in Care Everywhere or Nextgen with no results.El ectronically signed by María Segundo RN at 04/18/2019 2:52 PM PDTdocumented in this encounter Plan of Treatment +--------+ + + + + | Date | Type | Specialty | Care Team | Description | +--------+ + + + + | 03/08/ | | Obstetrics & | Ama Rahman | | | 2019 | | Gynecology | MD Vickie,S [address] | | | | | | [place], | | | | | | [place] [address] | | | | | | [phone] | | | | | | | | +--------+ + + + + documented as of this encounter Visit Diagnoses Not on filedocumented in this encounter"
--- OUTSIDE RECORDS SUMMARY | ~2020-03-06 | XMS | Clinical Summary ---
Demographics + + + | Address | [address] | | | [place] [address] | + + + | Home Phone [...] Author + + + | Author | [facility] | + + + | Organization | [facility] | + + + | Address | [...] Team Providers + +------+ + | Care Administrative Assistant Receptionist Name | Role | Phone | + +------+ + | No Pcp Per Patient | PCP | Unavailable | + +------+ + Source Comments ANTONI is fully live on both [facility] and [facility] In[facility].Formerly [facility], [facility] Allergies No Known Allergies Medications + + + +---------+------+------+-------+ | Medication | Sig | Dispensed | Refills | Star | End | Statu | | | | | | t | Date | s | | | | | | Date | | | + + + +---------+------+------+-------+ | vitamins | Take 1 tablet by | | 0 | | | Activ | | (with calcium) | mouth once daily. | | | | | e | | iron-folic acid 27 | | | | | | | | mg iron- 1 mg oral | | | | | | | | tablet | | | | | | | + + + +---------+------+------+-------+ Active Problems + + + | Problem | Noted Date | + + + | Tobacco use affecting , antepartum | 07/28/2019 | + + + + + | Overview: 07/28/19: Smoking 3 cigarettes daily. Reviewing | | SCRIPT book to see if she would like to use this program. | + + + + + | Supervision of high risk in third trimester | 07/25/2019 | + + + + + | Overview: Formatting of this note might be different from the | | original.FOB: Second Parent Name: Raheem Reyes 8-10 | | WEEKS (Intake & First tri U/S): Labs: [X] Rh: Lab | | Results Component Value Date ABO A 04/23/2019 RH Positive | | 04/23/2019 [X] Antibody screen: Neg[X] GC/CT: Neg[X] Pap: N/A[X] | | Urine Cx: Neg[X] Varicella: vaccinated[X] Rubella: [id number] WEEKS | | (Nuchal/Exam)Carrier Screening: CF ,SMA - DECLINES, FOB | | NEGGenetic Screening: [X] SIS- [X] Flu Shot (Jun-Aug) DECLINES[x] | | PKU carrier screen neg (FOB is a carrier)16-18 WEEKS- [id number] | | WEEKS[X] Ultrasound 19-20 weeks: SEX: male[X] Completion | | anatomy: [ ] Birthing bwempra07-46 WEEKS[X] Tdap (27-36 wks, no | | earlier): Declines tdap[X] 1hr gtt (24-28 wks - must be completed | | by 28): 112 [X] CBC 30 WEEKS[ ] surgical booking[ ] | | Sterilization consent:34-36 WEEKS[X] GBS at 36wks: Neg[x ] Breast | | Pump: Medela, 02/16/2020[x ] 3rd tri RN Visit: | | 02/16/2020POSTPARTUM[ ] ppBCM: | |[X] Rubella: Imm | | | |12-13 WEEKS (Nuchal/Exam) | |Carrier Screening: CF ,SMA - DECLINES, FOB NEG | |Genetic Screening: [X] SIS- | |[X] Flu Shot (Jun-Aug) DECLINES | |[x] PKU carrier screen neg (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 carrier) | | | |16-18 WEEKS- DECLINES | | | |20 WEEKS | |[X] Ultrasound 19-20 weeks: SEX: male | |[X] Completion anatomy: | |[ ] Birthing classes | | | |26-28 WEEKS | |[X] Tdap (27-36 wks, no earlier): Declines tdap | |[X] 1hr gtt (24-28 wks - must be completed by ): 112 | |[X] CBC | | | |30 WEEKS | |[ ] surgical booking | |[ ] Sterilization consent: | | | |34-36 WEEKS | |[X] GBS at 36wks: Neg | |[x ] Breast Pump: Medela, 02/16/2020 | |[x ] 3rd tri RN Visit: 02/16/2020 | | | | | |[ ] ppBCM: | + + + + + + | | Estimated Date of Delivery | Comments | + + + + | Yes | 03/07/2020 | Based on last | | | | menstrual period of | | | | 06/01/2019 | + + + + Encounters +--------+ + + + + | Date | Type | Specialty | Care Team | Description | +--------+ + + + + | 03/04/ | Telephone | Obstetrics & | Kurtisulos, | | | 2020 | | Gynecology | MD Lizabeth | | +--------+ + + + + | 03/02/ | Telephone | Obstetrics & | Ama Rahman | | | 2020 | | Gynecology | MD [facility] | (contractions) | +--------+ + + + + | 03/01/ | | Obstetrics & | Aam Rahman | care | | 2020 | | Cole [facility] MD, [facility] | | +--------+ + + + + | 03/01/ | Travel | | | | | 2019 | | | | | +--------+ + + + + | 02/15/ | | Obstetrics & | | care (3rd | | 2019 | | Gynecology | | Tri RN) | +--------+ + + + + | 02/15/ | | Obstetrics & | Pentopoulos, | care | | 2020 | | Gynecology | Analebony MD | | +--------+ + + + + | 02/15/ | Travel | | | | | 2020 | | | | | +--------+ + + + + | 01/25/ | Office | Obstetrics & | Ita Glasgow, | Supervision of [facility] | | 2019 | Visit | Gynecology | | risk in | | | | | | third trimester | | | | | | (Primary Dx) | +--------+ + + + + | 01/11/ | | Obstetrics & | Ita Glasgow, | care | 2019 | | Gynecology | | | +--------+ + + + + | 01/11/ | Travel | | | | | 2019 | | | | | +--------+ + + + + | 12/31/ | Telephone-S | Obstetrics & | Ama Rahman | No Show | | 2019 | margaritoled | Gynecology | MD [facility] | | +--------+ + + + + | 12/29/ | Telephone | Obstetrics & | Ama Rahman | Appointment (Phone | | 2019 | | Gynecology | MD [facility] | vs. Virtual Visit) | +--------+ + + + + | 12/21/ | Telephone | Obstetrics & | Ama Rahman | (lab | | 2019 | | Gynecology | MD [facility] | results from 12/17) | +--------+ + + + + | 12/17/ | | Obstetrics & | Ama Rahman | Blood draw; | | 2019 | | Gynecology | MD [facility] | Obstetric US Scan; | | | | | | care | +--------+ + + + + | 12/17/ | Ancillary | | | | | 2019 | Procedure | | | | +--------+ + + + + | 12/17/ | Travel | | | | | 2019 | | | | | +--------+ + + + + | 12/17/ | Transcribe | Radiology | Ama Rahman | | | 2020 | Orders | | MD [facility] | | +--------+ + + + + from Last 3 Months Immunizations + + + + | Name | Administration Dates | Next Due | + + + + | DTaP | 05/26/2005 | | + + + + | [id number]-[id number] | 01/09/2006 | | + + + + | HepA-Ped 2 Dose | 01/09/2006 | | + + + + | HepB-Peds | 05/26/2005, 1999, 1999 | | + + + + | MMR | 01/09/2006, 05/26/2005 | | + + + + | Polio-Inject | 11/21/2006, 05/26/2005 | | + + + + | Td (adult), 2 Lf | 11/21/2006 | | | tetanus toxoid, | | | | preservative free, | | | | adsorbed | | | + + + + | Tdap | 11/22/2012 | | + + + + | Varicella | 05/26/2005 | | + + + + Family History + + +------+ + | Medical History | Relation | Name | Comments | + + +------+ + | No Known Problems | Brother | | | + + +------+ + | No Known Problems | Brother | | | + + +------+ + | No Known Problems | Father | | | + + +------+ + | No Known Problems | Maternal | | | | | Grandfath | | | | | er | | | + + +------+ + | No Known Problems | Maternal | | | | | Grandmoth | | | | | er | | | + + +------+ + | Lupus | Paternal | | | | | Aunt | | | + + +------+ + | Diabetes | Paternal | | | | | Grandfath | | | | | er | | | + + +------+ + | Breast Cancer | Paternal | | | | | Grandmoth | | | | | er | | | + + +------+ + | No Known Problems | Sister | | | + + +------+ + | No Known Problems | Sister | | | + + +------+ + | No Known Problems | Sister | | | + + +------+ + | No Known Problems | Sister | | | + + +------+ + + +------+--------+ + | Relation | Name | Status | Comments | + +------+--------+ + | Brother | | | | + +------+--------+ + | Brother | | | | + +------+--------+ + | Father | | | | + +------+--------+ + | Maternal Grandfather | | Alive | | + +------+--------+ + | Maternal Grandmother | | Alive | | + +------+--------+ + | Paternal Aunt | | | | + +------+--------+ + | Paternal Grandfather | | Alive | | + +------+--------+ + | Paternal Grandmother | | Alive | | + +------+--------+ + | Sister | | | | + +------+--------+ + | Sister | | | | + +------+--------+ + | Sister | | | | + +------+--------+ + | Sister | | | | + +------+--------+ + Social History + + + +--------+------+ [...] | | + +---+---+---+ + + | Tobacco Cessation: Ready to Quit: Yes | | Comments: will review SCRIPT book | + + + + +---------+ + | Alcohol Use | Drinks/Week | oz/Week | Comments | + + +---------+ + | Not Currently | | | | + + +---------+ + + + + + | | Estimated Date of Delivery | Comments | + + + + | Yes | 03/07/2020 | Based on last | | | | menstrual period of | | | | 06/01/2019 | + + + + + + + | Sex Assigned [...] | | | + + + + Last Filed Vital Signs + + + + + | Vital Sign | Reading | Time Taken | Comments | + + + + + | Blood Pressure | 110/62 | 03/01/2020 10:32 AM | | | | | PDT [...] + + + + | Weight | 69.9 kg (154 lb) | 03/01/2020 10:32 AM | | | | | PDT | | + + + + + | Height | 167 cm (5' 5.75") | 07/28/2019 9:25 AM | | | | | PDT | | + + + + + | Body Mass Index | 25.05 | 07/28/2019 9:25 AM | | | | | PDT | | + + + + + Plan of Treatment +--------+ + + + + | Date | Type | Specialty | Care Team | Description | +--------+ + + + + | 03/08/ | | Obstetrics & | Ama Rahman | | | 2020 | | Gynecology | MD Vickie,S [address] | | | | | | [place], | | | | | | [place] [address] | | | | | | [phone] | | | | | | | | +--------+ + + + + + + + + + | Health Maintenance | Due Date | Last Done | Comments | + + + + + | Preconception/contra | | | | | ception counseling | 0 | | | | (one pena question) | | | | + + + + + | Pneumococcal | | | | | vaccination (1 of 1 | 6 | | | | - PPSV23) | | | | + + + + + | Influenza (Flu) | | | | | vaccination (Season | 0 | | | | Ended) | | | | + + + + + Procedures + +--------+ + + + | Procedure Name | Priori | Date/Time | Associated Diagnosis | Comments | | | ty | | | | + +--------+ + + + | CULTURE, STREP B | Routin | 02/16/2020 | Supervision of | Results for this | | | e | 7:53 AM | high risk | procedure are in the | | | | PDT | in third trimester | results section. | + +--------+ + + + | CLINIC OB FOLLOW | Routin | 02/16/2020 | Uterine size-date | Results for this | | UP PER FETUS | e | | discrepancy in third | procedure are in the | | | | | trimester | results section. | + +--------+ + + + | ID COLLECTION VENOUS | Routin | 12/18/2019 | Supervision of | | | BLOOD,VENIPUNCTURE | e | 10:10 AM | high risk | | | | | PDT | in third trimester | | + +--------+ + + + | CBC ONLY | Routin | 12/18/2019 | Supervision of | Results for this | | | e | 10:10 AM | high risk | procedure are in the | | | | PDT | in second trimester | results section. | + +--------+ + + + | CBC (HEMOGRAM ONLY) | Routin | 12/18/2019 | Supervision of | Results for this | | | e | 10:10 AM | high risk | procedure are in the | | | | PDT | in second trimester | results section. | + +--------+ + + + | GLUCOSE TOLERANCE | Routin | 12/18/2019 | Supervision of | Results for this | | TEST, 1 HOUR | e | 10:10 AM | high risk | procedure are in the | | | | PDT | in second trimester | results section. | + +--------+ + + + | US CLINIC OB FOLLOW | Routin | 12/18/2019 | Supervision of | Results for this | | UP PER FETUS - | e | 9:31 AM | high risk | procedure are in the | | EXTERNAL READ | | PDT | in third trimester | results section. | + +--------+ + + + | TELEMEDICINE | Routin | 12/18/2019 | | Results for this | | ULTRASOUND | e | 8:42 AM | screening for | procedure are in the | | | | PDT | chromosomal anomaly | results section. | | | | | by amniocentesis | | + +--------+ + + + from Last 3 Months Results CULTURE, STREP B (02/16/2020 7:53 AM PDT) + + + + + + | Component | Value | Ref Range | Performed | Pathologist | | | | | At | Signature | + + + + + + | CULTURE | Negative for Group B | | [facility] | | | RESULT | Beta Streptococci | | A MEDICAL | | | STREP B | | | CENTER | | + + + + + + + + | Specimen | + + | Swab - Pooled | | specimen from | | vaginal introitus | | and rectal swab | | (specimen) | + + + + + + + | Performing | Address | City/State/Zipcode | Phone Number | | Organization | | | | + + + + + | [facility] | And | [place] | [phone] | | [facility] | [address] | [address] | | + + + + + US CLINIC OB FOLLOW UP PER FETUS (02/16/2020) [...] | | | + +---------+ + + CBC ONLY (12/18/2019 10:10 AM PDT) + + + + + + | Component | Value | Ref Range | Performed | Pathologist | | | | | At | Signature | + + + + + + | WHITE CELL | 13.81 (H) | 3.50 - 10.80 | [facility] | | | COUNT | | K/cu mm | A MEDICAL | | | | | | CENTER | | + + + + + + | RED CELL | 3.54 (L) | 4.00 - 5.20 | [facility] | | | COUNT | | M/cu mm | A MEDICAL | | | | | | CENTER | | + + + + + + | HEMOGLOBIN | 11.1 (L) | 12.0 - 16.0 | [facility] | | | | | g/dL | A MEDICAL | | | | | | CENTER | | + + + + + + | HEMATOCRIT | 33.1 (L) | 36.0 - 46.0 % | [facility] | | | | | | A MEDICAL | | | | | | CENTER | | + + + + + + | MCV | 93.5 | 80.0 - 96.0 fL | [facility] | | | | | | A MEDICAL | | | | | | CENTER | | + + + + + + | MCH | 31.4 | 28.0 - 34.7 pg | [facility] | | | | | | A MEDICAL | | | | | | CENTER | | + + + + + + | MCHC | 33.5 | 33.0 - 35.5 | [facility] | | | | | g/dL | A MEDICAL | | | | | | CENTER | | + + + + + + | RDW | 12.0 | 11.5 - 14.5 % | [facility] | | | | | | A MEDICAL | | | | | | CENTER | | + + + + + + | PLATELET | 228 | 150 - 400 K/cu | [facility] | | | COUNT | | mm | A MEDICAL | | | | | | CENTER | | + + + + + + | MPV | 10.4 | 7.5 - 11.2 fL | [facility] | | | | | | A MEDICAL | | | | | | CENTER | | + + + + + + + + | Specimen | + + | Blood - Blood | | (substance) | + + + + + | Narrative | Performed At | + + + | No reflex rules apply to this test. | [facility] | | | [facility] | + + + + + + + + | Performing | Address | City/State/Zipcode | Phone Number | | Organization | | | | + + + + + | [facility] | And | [place], [place] | [phone] | | [facility] | [address] | [address] | | + + + + + GLUCOSE TOLERANCE TEST, 1 HOUR (12/18/2019 10:10 AM PDT) + +-------+ + + + | Component | Value | Ref Range | Performed | Pathologist | | | | | At | Signature | + +-------+ + + + | 1 HOUR | 112 | <130 mg/dL | [facility] | | | GLUCOSE - | | | A MEDICAL | | | 1GT | | | CENTER | | + +-------+ + + + + + | Specimen | + + | Blood - Blood | | (substance) | + + + + + | Narrative | Performed At | + + + | This test is to be used for the diagnosis of gestational diabetes | [facility] | | only. | MEDICAL CENTER | + + + + + + + + | Performing | Address | City/State/Zipcode | Phone Number | | Organization | | | | + + + + + | [facility] | [address] | [place], [place] | [phone] | | [facility] | [place] | [address] | | + + + + + CLINIC OB FOLLOW UP PER [facility] - EXTERNAL READ (12/18/2019 9:31 AM PDT) + + | Specimen | + + | | + + + + + | Narrative | Performed At | + + + | Ultrasound exam performed at [facility] ([facility] and will | [facility] | | be read/resulted at [facility]. | DEPARTMENT OF | | | RADIOLOGY | + + + + +---------+ + + | Performing | Address | City/State/Zipcode | Phone Number | | Organization | | | | + +---------+ + + | [facility] | | | | | RADIOLOGY | | | | + +---------+ + + TELEMEDICINE ULTRASOUND (12/18/2019 8:42 AM PDT) + + | Specimen | + + | | + + + + + | Narrative | Performed At | + + + | [facility] | [facility] | | OBSTETRICAL ULTRASOUND REPORT | RADIOLOGY OB US | | | | | Pat. Name: TANISHA LANDRUM Dieter Pat. No: [id number] Study | | | Date: 12/18/2019 9:31am , Age: 02 2000, 19 | | | Pregnancies: 2, Para 0010 LMP: 06/01/2019 | | | GA by LMP: 28w4d GA by Last: 28w4d GA by US: 28w5d GA | | | Selected: 28w4d (From Known E) LAUREN: 03/07/2020 | | | Referring MD: Ita Glasgow MD Sensor Operator: Debra Ayon CPT4: | | | 22336 | | | | | | MEASUREMENTS & AGE GROWTH EVALUATION | | | Measurement GA Range Srce %for GA Ratios | | | ----- ---- ------- BPD 7.4 | | | cm 29w4d (97o5t-27k4u) Hadl BPD 70% FL/BPD 0.73 (0.71 - 0.87) HC | | | 27.7 cm 30w2d (09e7h-50t7a) Hadl HC 75% FL/AC 0.23 (0.20 - 0.24) | | | AC 23.7 cm 28w0d (13k9q-04x8u) Hadl AC 38% HC/AC 1.17 (0.99 - | | | 1.18) FL 5.4 cm 28w4d (95u8d-94r2v) Hadl FL 49% CI 0.75 | | | (0.70 - 0.86) GA for sonogram 28w5d (22u8p-01l5j) Weight | | | Estimate: based on [...] | | | ! x ! Cardiac [place]/! ! ! | | | ! x [...] | | | ask for the perinatologist prep person. [phone] or [phone] | | | SUNITHA LIPSCOMB MD <Electronic Signature> 12/18/2019 | | | 10:58am I have personally reviewed the images and, if | | | necessary, edited the report. I agree with the report as now | | | presented. | | + + + + + | Procedure Note | + + | Dave Estes, Radiyamileth Res In Interface - 12/18/2019 3:43 PM PDT | | [facility] OBSTETRICAL ULTRASOUND | | REPORT Pat. Name: | | [facility] [id number] Date: 12/18/2019 9:31amDOB, Age: | | 2000, 19Pregnancies: 2, Para 0010LMP: 06/01/2019 GA by LMP: | | 18a4qVI by Last: 36b9mTD by US: [id number] Selected: 28w4d (From Known E)LAUREN: | | 03/07/2020Referring MD: Ita Glasgow MDSonographer: Lloyd Ayon4: | | [id number] | | & AGE GROWTH EVALUATIONMeasurement GA Range Srce %for | | GA Ratios ----- ---- ------- BPD 7.4 | | cm 29w4d (76o7e-66l7r) Hadl BPD 70% FL/BPD 0.73 (0.71 - 0.87)HC 27.7 cm 30w2d | | (14e0h-53t4t) Hadl HC 75% FL/AC 0.23 (0.20 - 0.24)AC 23.7 cm 28w0d (12c5c-28m5e) Hadl | | AC 38% HC/AC 1.17 (0.99 - 1.18)FL 5.4 cm 28w4d (03e3d-67q5n) Hadl FL 49% CI | | 0.75 (0.70 - 0.86)GA for sonogram 28w5d (37b7q-07j3x) Weight Estimate:based on | | (BPD,HC,AC,FL) [place] Weight: 1232 gm (1052-1412gm) Had | | : 2lbs, 11oz Normal: 1241 gm | | (839-1791gm) Bren Wt% 49% for 61p8yUknrg Heart | | Rate: 144 bpmAmniotic Fluid [...] x !Chest/Lungs/R! ! ! ! x !Cardiac [place]/! | | ! ! ! x !Four [...] and ask for the | | perinatologist prep person. [phone] or [phone], JAMIE, | | <Electronic Signature> 12/18/2019 10:58amI [...] ask for the perinatologist on | |call. [phone] or [phone] | |SUNITHA LIPSCOMB MD | | | [...] | | | + +---------+ + + from Last 3 Months Insurance + +--------+ +--------+-------+---------+--------+ | Payer | Benefi | Subscriber | Effect | Phone | Address | Type | | | t Plan | ID | emily | | | | | | / | | Dates | | | | | | Group | | | | | | + +--------+ +--------+-------+---------+--------+ | MARINE PROP[employer]ION TECHNICIAN MEDICAID | MARINE PROPULSION TECHNICIAN | xxxxxxxx | 03/31/20 | | | Medica | | | [place] | | 19-Pre | | | id | | | [place] | | sent | | | | + +--------+ +--------+-------+---------+--------+ | MARINE PROPULSION TECHNICIAN MEDICAID | MARINE PROPULSION TECHNICIAN | xxxxxxxx | 03/31/20 | | | Medica | | | [place] | | 19-Pre | | | id | | | [place] | | sent | | | | + +--------+ +--------+-------+---------+--------+ + +--------+ +--------+ + + | Guarantor Name | Accoun | Relation to | Date | Phone | Billing Address | | | t Type | Patient | of | | | | | | | | | | + +--------+ +--------+ + + | Tanisha Landrum | Person | Self [birth year] | [address] | | | al/Fam | | 2000 | [phone] | [place] [address] | | | arabella | | | 6 (Home) | | + +--------+ +--------+ + + | Tanisha Landrum | Person | Self [birth year] | [address] | | | al/Fam | | 2000 | [phone] | [place] [address] | | | arabella | | | 6 (Home) | | + +--------+ +--------+ + +
--- OUTSIDE RECORDS SUMMARY | ~2020-03-06 | XMS | Encounter Summary ---
Demographics + + + | Address | [address] | | | [place] [address] | + + + | Home Phone | | + + + | Preferred Language | Unknown | + + + | Marital Status | Single | + + + | Baptist Affiliation | Unknown | + + + [...] Team Providers + +------+ + | Care Banquet Steward Name | Role | Phone | + +------+ + | No Pcp Per Patient | PCP | Unavailable | + +------+ + Encounter Details +--------+--------+ + + + | Date | Type | Department | Care Team | Description | +--------+--------+ + + + | 08/18/ | Travel | | | | | [...] E | | | | | | [place], | | | | | | [place] [address] | | | | | | [phone] | | | | | | | | +--------+ + + + + documented as of this encounter Visit Diagnoses Not on filedocumented in this encounter"
--- OUTSIDE RECORDS SUMMARY | ~2020-03-06 | XMS | Encounter Summary ---
Demographics + + + | Address | [address] | | | [place] [address] | + + + | Home Phone | | + + + | Preferred Language | Unknown | + + + | Marital Status | Single | + + + | Adventism Affiliation | Unknown | + + + | Race | White | + + + | Ethnic Group | Not or | + + + Author + + + | Author | [facility] | + + + | Organization | [facility] | + + + [...] Team Providers + +------+ + | Care Signal Intelligence Analyst Name | Role | Phone | + [...] | +--------+ + + + + | 10/15/ | | [place] | Ita Glasgow, | care | | 2020 | | [facility] [address] | | [address] [place], [place] | | | | | [address] [place], [place] | [address] | | | | | [address] | [phone] | | | | | [phone] | | | +--------+ + + + [...] + + + | Blood Pressure | 98/56 | 10/15/2019 11:02 AM | | | | | PST | | + + + + + [...] + + + + | Weight | 59.7 kg (131 lb 9.6 | 10/15/2019 11:02 AM | | | | oz) | PST | | + + + + + | Height | - | - | | + + + + + | Body Mass Index | 21.4 | 07/28/2019 9:25 AM | | | | | PDT | | + + + + + documented in this encounter Patient Instructions Patient Instructions Joe LynDELANO - 10/15/2019 11:00 AM PSTPrenatal Visit - Week 20 You ve arrived at the retirement point in your . You re probably feeling your ba by move. Your body is changing, and will change even more dramatically in the weeks to come . Please read chapters 6 and 22 in your book. Premature Labor Your baby still needs to live inside you. S/he is much too young to be able to live outsid e you. We want to raise the issue of labor with you. 12% of women deliver their ba bies prematurely (before 37 weeks). These babies have a higher chance of health problems in their infancy, and some may not survive. Premature labor is difficult to diagnose accurate ly and difficult to treat. If you suspect you might be in premature labor, call us. Here are some signs and symptoms that are sometimes seen in premature labor (and, unfortuna tely, these can all occur in a healthy, normal ): ? Painful, uterine contractions ? A bloody vaginal discharge ? A watery vaginal discharge ? Lower abdominal pain ? Fever, chills, muscle aches Nutrition Today s Nutritional Valentine: Let s get serious about good nutrition. You ll be glad y ou did! We re keeping it simple .remember? Three high-quality meals and three high-chris lity snacks. Foods like chips, sodas, and pastries should be only a small part of a h ealthy diet. Surround yourself with good food choices. Bring on the hard-boiled eggs. June ng on the zucchini and carrot sticks (dip them in some hummus). Bring on the string cheese sticks. Have a glass of milk. Have a grilled cheese sandwich (on a whole-grain bread!). Dental Care That beautiful smile also needs attention during your so it s important to keep up with your regular teeth cleanings. Bleeding gums are a common problem for wome n and keeping your teeth clean and flossed regularly can help keep your gums healthy. Don t put off seeing your dentist if you have tooth pain or need dental work done to prevent an y kind of infection. You can safely get treatment in including the use of local a nesthetic (numbing medicine), antibiotics and x-rays if they are necessary for treatment. Travel Travel within the [place] during a healthy is OK .even flying in commercial jets. If you are having problems with your and need to travel, call us first. If you c an, don t plan to travel in the last month of . can increase the risk of blood clots forming in your legs. Don t sit for more than 2 hours without getting up and moving your legs. Keep yourself well-hydrated! And because of that, pee frequently. Don t hold your urine . If you have to go .go! Travel outside of the country is not advised for a variety of reasons. If you must travel outside the country, read this first from the Centers for Disease Control (CDC): http://wwwnc.cdc.gov/travel/yellowbook/2014/rlnkbvk-8-cncmrbif-crmadilyc-tryg-ortfsjle-need s/-travelers Or do a Google search for: CDC travel yellow book chapter 8 Screening for Gestational Diabetes is a diabetogenic event. What does that mean? It means that the changes in your body that promote also increase your body s resistance to insulin. Insulin is a hormone that moves your blood sugar into the cells, where it provides energy for that cell . Something about makes that harder to do. That raises your blood sugar levels. If the blood sugar gets too high we call it Diabetes. has its own form of diabet es, which we call Gestational Diabetes. About 10% of women will have blood sugars that are too high. We want to identify these women as soon as possible. 80% of the time it s possible to control Gestational Diabetes with some tweaks to your diet. However, some women actually will need some medication, like insulin. Between 24 and 28 weeks we do a glucose screening test on ALL women. We ll talk about this at your next visit. Weeks 18 to 22 of Your : Care Instructions Your Care Instructions Your baby is continuing to develop quickly. At this stage, babies can now suck their thumbs , electronic components assembler firmly with their hands, and open and close their eyelids. Sometime between 18 and 22 weeks, you will start to feel your baby move. At first, these sm all movements feel like fluttering or "butterflies." Some women say that they feel lik e gas bubbles. As the baby grows, these movements will become stronger. You may also notice that your baby kicks and hiccups. During this time, you may find that your nausea and fatigue are gone. Overall, you may feel better and have more energy than you did in your first trimester. But you may also have new discomforts now, such as sleep problems or leg cramps. This care sheet can help you ease th isac discomforts. Follow-up care is a pena part of your treatment and safety. Be sure to make and go to all ap pointments, and call your doctor if you are having problems. It's also a good idea to know y our test results and keep a list of the medicines you take. How can you care for yourself at home? Ease sleep problems Avoid caffeine in drinks or chocolate late in the day. Get some exercise every day. Take a warm shower or bath before bed. Have a light snack or glass of milk at bedtime. Do relaxation exercises in bed to calm your mind and body. Support your legs and back with extra pillows. Try a pillow between your legs if you sle ep on your side. Do not use sleeping pills or alcohol. They could harm your baby. Ease leg cramps Do not massage your calf during the cramp. Sit on a firm bed or chair. Straighten your leg, and bend your foot (flex your ankle) sl owly upward, toward your knee. Bend your toes up and down. Stand on a cool, flat surface. Stretch your toes upward, and take small steps walking on your heels. Use a heating pad or hot water bottle to help with muscle ache. Prevent leg cramps Be sure to get enough calcium. If you are worried that you are not getting enough, talk to your doctor. Exercise every day, and stretch your legs before bed. Take a warm bath before bed, and try leg warmers at night. Where can you learn more? To learn more about "Weeks 18 to 22 of Your : Care Instructions", log into your My Chart account at [email or web address]. You can enter W603 in the "Health Library" [facility] box. Not on Apartment List[employer]? Review the MyChart section of your After Visit Summary for directions on otto rodriguez to sign up. Current as of: June 05, 2018 Content Version: 12.1 3650-4710 [employer]. Care instructions adapted under license by [facility] [place]. If you have questions about a medical condition or this instr uction, always ask your healthcare professional. [employer] disclaims any barbara anty or liability for your use of this information. documented in this encounter Progress Notes Ita Glasgow MD - 10/15/2019 11:00 AM PSTReturn OB Visit S: Doing well. Just had anatomy US, having a boy! No concerns. Still smoking a couple of ci garettes per day. O: VS: BP 98/56 | Wt 59.7 kg (131 lb 9.6 oz) | BMI 21.40 kg/m | BSA 1.66 m Gen: Well-appearing, in no distress Abd: soft, NT, gravid Ext: No LE edema or calf tenderness A/P: 18 y.o. at 19w3d here for visit. 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 - PNC: UTD, s/p anatomy today - Smoking: encouraged cessation and congratulated her on cutting back. She declines script program today. - RTC in 4 weeks Ita Glasgow MD Lyn Stapleton MA - 0 10/15/2019 11:00 AM PSTUTD, denies any concerns, Just had anatomy scan. Declines flu shot. Delano Diaz MA documented in this enco unter Plan of Treatment +--------+ + + + + | Date | Type | Specialty | Care Team | Description | +--------+ + + + + | 03/08/ | | Obstetrics & | Ama Rahman | | 2019 | | Gynecology | MD Vickie,S [address] | | | | | | [place], | | | | | | [place] [address] | | | | | | [phone] | | | | | | | | +--------+ + + + + documented as of this encounter Visit Diagnoses + + | Diagnosis | + + | Supervision of low-risk , second trimester | + + documented in this encounter
--- OUTSIDE RECORDS SUMMARY | ~2020-03-06 | XMS | Encounter Summary ---
Demographics + + + | Address | [address] | | | [place] [address] | + + + | Home Phone | | + + + | Preferred Language | Unknown | + + + | Marital Status | Single | + + + | Caodaism Affiliation | Unknown | + + + | Race | White | + + + | Ethnic Group | Not or | + + + Author + + + | Author | [facility] | + + + | Organization | [facility] | + + + | [...] Team Providers + +------+ + | Care Associate Professor Of Mathematics Name | Role | Phone | + +------+ + | No Pcp Per Patient | PCP | Unavailable | + +------+ + Reason for Visit + + + | Reason | Comments | + + + | Test Results | PKU carrier screen | + + + Encounter Details +--------+ + + + + | Date | Type | Department | Care Team | Description | +--------+ + + + + | 09/16/ | Telephone | [facility] | Kellie López, | Test Results (PKU | | 2019 | | [facility] [address] [facility] | [facility] [address] | carrier screen) | | | | [address] | [place], [place] | | | | | Betzy Urbina | [phone] | | | | | [place], [place] | | | | | | [address] | | | | | | [phone] | | | +--------+ + + + [...] 2020 | | Gynecology | MD Vickie,S [address] | | | | | | [place], | | | | | | [place] [address] | | | | | | [phone] | | | | | | | | +--------+ + + + + documented as of this encounter Visit Diagnoses Not on filedocumented in this encounter"
--- OUTSIDE RECORDS SUMMARY | ~2020-03-06 | XMS | Encounter Summary ---
Demographics + + + | Address | [address] | | | [place] [address] | + + + | Home Phone | | + + + | Preferred Language | Unknown | + + + | Marital Status | Single | + + + | Hinduism Affiliation | Unknown | + + + [...] Team Providers + +------+ + | Care Sewage Plant Supervisor Name | Role | Phone | + +------+ + | No Pcp Per Patient | PCP | Unavailable | + +------+ + Reason for Visit + + + | Reason | Comments | + + + | | lab results from 12/17 | + + + Encounter Details +--------+ + + + + | Date | Type | Department | Care Team | Description | +--------+ + + + + | 12/21/ | Telephone | [place] | Ama Rahman | (lab | | 2019 | | [facility] [address] | MD Vickie,[facility] [address] | results from 12/17) | | | | [address] | [place], | | | | | [address] [place], [place] | [place] [address] | | | | | [address] | [phone] | | | | | [phone] | | | +--------+ + + + [...] 2020 | | Gynecology | MD Vickie,S [address] | | | | | | [place], | | | | | | [place] [address] | | | | | | [phone] | | | | | | | | +--------+ + + + + documented as of this encounter Visit Diagnoses Not on filedocumented in this encounter"
--- OUTSIDE RECORDS SUMMARY | ~2020-03-06 | XMS | Encounter Summary ---
Demographics + + + | Address | [address] | | | [place] [address] | + + + | Home Phone | | + + + | Preferred Language | Unknown | + + + | Marital Status | Single | + + + | Presybeterian Affiliation | Unknown | + + + | Race | White | + + + | Ethnic Group | Not or | + + + Author + + + | Author | [facility] | + + + | Organization | [facility] | + + + | Address [...] Team Providers + +------+ + | Care Bank Sales And Service Manager Name | Role | Phone | + +------+ + | No Pcp Per Patient | PCP | Unavailable | + +------+ + Reason for Visit + + + | Reason | Comments | + + + | Lab Order | Integrated Screen | + + + Encounter Details +--------+ + + + + | Date | Type | Department | Care Team | Description | +--------+ + + + + | 08/21/ | Telephone | [place] | Ita Glasgow, | Lab Order | | 2019 | | [facility] [address] | [address] , | (Integrated Screen) | | | | [address] [place], [place] | | | | | [address] [place], [place] | [address] | | | | | [address] | [phone] | | | | | [phone] | | | +--------+ + + + [...] 2020 | | Gynecology | MD Vickie,[address] | | | | | | [place], | | | | | | [place] [address] | | | | | | [phone] | | | | | | | | +--------+ + + + + documented as of this encounter Visit Diagnoses Not on filedocumented in this encounter"
--- OUTSIDE RECORDS SUMMARY | ~2020-03-06 | XMS | Encounter Summary ---
Demographics + + + | Address | [address] | | | [place] [address] | + + + | Home Phone | | + + + | Preferred Language | Unknown | + + + | Marital Status | Single | + + + | Mosque Affiliation | Unknown | + + + [...] Team Providers + +------+ + | Care Roll Press Operator Name | Role | Phone | + +------+ + | No Pcp Per Patient | PCP | Unavailable | + +------+ + Encounter Details +--------+--------+ + + + | Date | Type | Department | Care Team | Description | +--------+--------+ + + + | 12/17/ | Travel [...] 2020 | | Gynecology | MD Vickie,S [address] | | | | | | [place], | | | | | | [place] [address] | | | | | | [phone] | | | | | | | | +--------+ + + + + documented as of this encounter Visit Diagnoses Not on filedocumented in this encounter"
--- OUTSIDE RECORDS SUMMARY | ~2020-03-06 | XMS | Encounter Summary ---
Demographics + + + | Address | [address] | | | [place] [address] | + + + | Home Phone | | + + + | Preferred Language | Unknown | + + + | Marital Status | Single | + + + | Restoration Affiliation | Unknown | + + + | Race | White | + + + | Ethnic Group | Not or | + + + Author + + + | Author | [facility] | + + + | Organization | [facility] | + + + | [...] Team Providers + +------+ + | Care Deoiling Machine Operator Name | Role | Phone | + +------+ + | No Pcp Per Patient | PCP | Unavailable | + +------+ + Reason for Visit + + + | Reason | Comments | + + + | Miscarriage | | + + + Encounter Details +--------+ + + + + | Date | Type | Department | Care Team | Description | +--------+ + + + + | 04/30/ | Telephone | [place] | Milli Mitchell, | Miscarriage | | 2019 | | [facility] [address] | [facility] [address] | | | | | [address] | [address] | | | | | [address] [place], [place] | [place], [place] | | | | | [address] | [address] | | | | | [phone] | [phone] | | | | | | | [...] 2020 | | Gynecology | MD Vickie,S [address] | | | | | | [place], | | | | | | [place] [address] | | | | | | [phone] | | | | | | | | +--------+ + + + + documented as of this encounter Visit Diagnoses Not on filedocumented in this encounter"
--- OUTSIDE RECORDS SUMMARY | ~2020-03-06 | XMS | Encounter Summary ---
Demographics + + + | Address | [address] | | | [place] [address] | + + + | Home Phone | | + + + | Preferred Language | Unknown | + + + | Marital Status | Single | + + + | Lutheran Affiliation | Unknown | + + + [...] Team Providers + +------+ + | Care General Intern Name | Role | Phone | + +------+ + | No Pcp Per Patient | PCP | Unavailable | + +------+ + Encounter Details +--------+--------+ + + + | Date | Type | Department | Care Team | Description | +--------+--------+ + + + | 04/23/ | Travel | | | | | 2019 | | | | | +--------+--------+ + + + Social History + +-------+ [...] 2020 | | Gynecology | MD Vickie,S [address] | | | | | | [place], | | | | | | [place] [address] | | | | | | [phone] | | | | | | | | +--------+ + + + + documented as of this encounter Visit Diagnoses Not on filedocumented in this encounter"
--- OUTSIDE RECORDS SUMMARY | ~2020-03-06 | XMS | Encounter Summary ---
Demographics + + + | Address | [address] | | | [place] [address] | + + + | Home Phone | | + + + | Preferred Language | Unknown | + + + | Marital Status | Single | + + + | Holiness Affiliation | Unknown | + + + | Race | White | + + + | Ethnic Group | Not or | + + + Author + + + | Author | [facility] | + + + | Organization | [facility] | + + + | [...] Team Providers + +------+ + | Care Nursing Faculty Name | Role | Phone | + +------+ + | No Pcp Per Patient | PCP | Unavailable | + +------+ + Encounter Details +--------+------+ + + + | Date | Type | Department | Care Team | Description | +--------+------+ + + + | 04/23/ | Lab | Laboratory at | | Vaginal bleeding in | | 2019 | | [facility] | | | | | | Center [address] | | | | | | [place] | | | | | | [address] | | | | | | [phone] | | | +--------+------+ + + + Social History + +-------+ [...] 2020 | | Gynecology | MD Vickie,S [address] | | | | | | [place], | | | | | | [place] [address] | | | | | | [phone] | | | | | | | | +--------+ + + + + documented as of this encounter Procedures + +--------+ + + + | Procedure Name | Priori | Date/Time | Associated Diagnosis | Comments | | | ty | | | | + +--------+ + + + | CBC ONLY | Routin | 04/23/2019 | Vaginal bleeding | Results for this | | | e | 11:45 AM | in | procedure are in the | | | | PDT | | results section. | + +--------+ + + + | CBC (HEMOGRAM ONLY) | Routin | 04/23/2019 | Vaginal bleeding | Results for this | | | e | 11:45 AM | in | procedure are in the | | | | PDT | | results section. | + +--------+ + + + | ABO & RH TYPE | Routin | 04/23/2019 | Vaginal bleeding | Results for this | | | e | 11:45 AM | in | procedure are in the | | | | PDT | | results section. | + +--------+ + + + documented in this encounter Results CBC ONLY (04/23/2019 11:45 AM PDT) + + + + + + | Component | Value | Ref Range | Performed | Pathologist | | | | | At | Signature | + + + + + + | WHITE CELL | 8.15 | 3.50 - 10.80 | [facility] | | | COUNT | | K/cu mm | [facility] | [facility] | | + + + + + + | RED CELL | 3.84 (L) | 4.00 - 5.20 | [facility] | | | COUNT | | M/cu mm | [facility] | | | | | [facility] | | + + + + + + | HEMOGLOBIN | 12.2 | 12.0 - 16.0 | [facility] | | | | | g/dL | [facility] | | | | | | [facility] | | + + + + + + | HEMATOCRIT | 34.8 (L) | 36.0 - 46.0 % | [facility] | | | | | | [facility] | | | | | | [facility] | | + + + + + + | MCV | 90.6 | 80.0 - 96.0 fL | [facility] | | | | | | [facility] | | | | | | [facility] | | + + + + + + | MCH | 31.8 | 28.0 - 34.7 pg | [facility] | | | | | | [facility] | | | | | | [facility] | | + + + + + + | MCHC | 35.1 | 33.0 - 35.5 | [facility] | | | | | g/dL | [facility] | | | | | | [facility] | | + + + + + + | RDW | 11.7 | 11.5 - 14.5 % | [facility] | | | | | | [facility] | | | | | | [facility] | | + + + + + + | PLATELET | 266 | 150 - 400 K/cu | [facility] | | | COUNT | | mm | [facility] | | | | | | [facility] | | + + + + + + | MPV | 10.2 | 7.5 - 11.2 fL | [facility] [...] reflex rules apply to this test. | [facility] | | | [facility] | + + + + + + + + | Performing | Address | City/State/Zipcode | Phone Number | | Organization | | | | + + + + + | [facility] | And | [place] | [phone] | | [facility] | Street | [address] | | + + + + + ABO & RH TYPE (04/23/2019 11:45 AM PDT) + + + + + + | Component | Value | Ref Range | Performed | Pathologist | | | | | At | Signature | + + + + + + | ABO Group | A | | [facility] | | | [facility] | | + + + + + + | Rh Type | Positive | | [facility] | | | | | | [facility] | | + + + + + + + + | Specimen | + + | Blood - Blood | | (substance) | + + + + + + + | Performing | Address | City/State/Zipcode | Phone Number | | Organization | | | | + + + + + | [facility] | and | [place] | | | | [address] | [address] | | + + + + + documented in this encounter Visit Diagnoses + + | Diagnosis | + + | Vaginal bleeding in Unspecified antepartum hemorrhage, unspecified as to | | episode of care | + + documented in this encounter"
--- OUTSIDE RECORDS SUMMARY | ~2020-03-06 | XMS | Encounter Summary ---
Demographics + + + | Address | [address] | | | [place] [address] | + + + | Home Phone | | + + + | Preferred Language | Unknown | + + + | Marital Status | Single | + + + | Bahai Affiliation | Unknown | + + + | Race | White | + + + | Ethnic Group | Not or | + + + Author + + + | Author | [facility] | + + + | Organization | [facility] | + + + | Address | [...] Team Providers + +------+ + | Care Boilermaker Pipe Fitter Name | Role | Phone | + +------+ + | No Pcp Per Patient | PCP | Unavailable | + +------+ + Reason for Visit + + + | Reason | Comments | + + + | | | + + + Transfer to Another Service Area (Routine) +--------+--------+ + + + + | Status | Reason | Specialty | Diagnoses / | Referred By | Referred To | | | | | Procedures | Contact | Contact | +--------+--------+ + + + + | Closed | | | Diagnoses | | Pnc | | | | | Encounter | Pentopoulos, | Perinatology | | | | | for | Analene, MD | [facility] [address] | | | | | supervision | [address] | | | | | of normal | [address] | Physician's | | | | | in | [address], | | | | | | [place], [place] | 4th floor | | | | | multigravida | [address] | [place], [place] | | | | | in first | Phone: | [phone] | | | | | trimester | [phone] | Phone: | | | | | Procedures | Fax: | [phone] | | | | | CONSULT TO | [phone] | Fax: | | | | | PERINATOLOGY | | [phone] | +--------+--------+ + + + + Encounter Details +--------+ + + + + | Date | Type | Department | Care Team | Description | +--------+ + + + + | 08/18/ | Video/TeleH | [facility] | Kellie López, | Family history of | | 2019 | ealth-Sched | Health [address] [facility] | MS [facility] [address] | genetic disease | | | uled | [address] | [address] [facility] [place] | carrier (Primary | | | | [address] | [address] | Dx); Encounter of | | | | [place], [place] | | female for testing | | | | [address] | | for genetic disease | | | | [phone] | | carrier status for | | | | | | procreative | | | | | | management; | | | | | | Multigravida in | | | | | | first trimester | +--------+ + + + + Social [...] documented as of this encounter Progress Notes Kellie López, MS [facility] - 08/18/2019 2:45 PM [facility] Tanisha Soni is a 18 yo who presents at 11w1d for telehealth genetic counseling to discuss carrier screening. She was accompanied by her , Raheem. FAMILY HISTORY One of Tanisha's paternal first cousins had a stillbirth of unknown etiology in addition t o several children. Raheem has two healthy children, ages 4 and 2, with a prior partner. 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 He reportedly tested negative for the other genes screened. I requested that he obtain a copy of his results for my review. Raheem has a 32 yo brother with Asperger's. Tanisha is of Nepali descent. Raheem is primarily of [place] descent without some Nepali & S cottish heritage. Neither has known Rastafari ancestry. The couple denies any other known history of congenital anomalies, cognitive impairment, multiple spontaneous abortions, stillbirths, consanguinity, or genetic conditions in either of their families. RISK ASSESSMENT Phenylketonuria (PKU) is an autosomal recessive disorder caused by deficient activity of th e enzyme phenylalanine hydroxylase (PAH). If untreated, the deficiency leads to harmful jay ldup of phenylalanine in the body causing intellectual disability and other serious medical problems. Most cases are detected shortly after by screening, and treatment i s started promptly so the severe signs and symptoms of classic PKU are rarely seen. Anytime partners are carriers for the same autosomal recessive condition, there is a 25% ch ance with each to have an affected child. diagnosis is available if the parental gene variants are known. Based on ancestry alone, Tanisha's PKU carrier risk is 1/41 , giving a 1/164 risk for this baby to have PKU without further testing. Benefits and limitations of carrier screening were reviewed. A normal carrier screening re sult reduces the likelihood of being a carrier but cannot eliminate it. Because Raheem gilmarcarmen essie had expanded carrier screening for over 300 genes, the couple's risk to have a child with a number of recessively-inherited disorders has been significantly reduced. However, orquidea er screening for X-linked conditions can be considered. Although female carriers of X-linke d conditions are typically healthy, there is a chance that results will have health implicat ions for the carrier themselves. Autism Spectrum Disorders are etiologically heterogeneous. Causes include multifactorial, c hromosomal, and other genetic disorders. The recurrence risk for a 2nd degree relative with no additional family history ranges from 2-7%. This is slightly higher than the general po pulation risk of 1 in 59 (1.7%). Aneuploidy: The association between maternal age and aneuploidy was discussed. The risk for having a baby at term with a chromosome abnormality at age 20 is estimated to be 1/ 526. Congenital Anomalies: There is a 3-5% background risk for defects in any . ANEUPLOIDY SCREENING The use of ultrasound as a screening tool for chromosomal problems was reviewed. Ultrasoun d between 18-20 weeks is a more thorough evaluation of overall growth and development. However, a normal ultrasound cannot rule out the possibility of a chromosomal problem. Serum integrated screening combines several serum analyte levels in the first and second tr imesters to provide a risk assessment for select chromosome abnormalities. Results are only reported in the second trimester. When complete, this test detects 85% of Down syndrome, 9 0% of trisomy 18, and 80% of open neural tube defects with a 3-4% false positive rate. We r eviewed how abnormal analytes may impact management. DIAGNOSIS The risks, benefits, and limitations of diagnosis by CVS or amniocentesis were liset efly reviewed. PLAN Tanisha ultimately opted for PKU carrier screening today (via [employer]' GeneSeq Plus for PAH). Results are expected in 3-4 weeks, and [facility] will notify me when results are available so that I can review with Tanisha. Raheem will also try to obtain a copy of his results for my review. Tanisha declined additional carrier screening at this time. She also desires serum integrated screening, which will be ordered and followed-up by [facility] directly. Kellie López MS, [facility] Certified Genetic Counselor [facility] [place] [facility] 4:3 5 PM PSTdocumented in this encounter Plan of Treatment +--------+ + + + + | Date | Type | Specialty | Care Team | Description | +--------+ + + + + | 03/08/ | | Obstetrics & | Ama Rahman | | | 2019 | | Gynecology | MD Vickie,S [address] | | | | | | [place], | | | | | | [place] [address] | | | | | | [phone] | | | | | | | | +--------+ + + + + documented as of this encounter Visit Diagnoses + + | Diagnosis | + + | Family history of genetic disease carrier - Primary | + + | Encounter of female for testing for genetic disease carrier status for procreative | | management Testing of female for genetic disease carrier status | + + | Multigravida in first trimester | + + documented in this encounter"
--- OUTSIDE RECORDS SUMMARY | ~2020-03-06 | XMS | Encounter Summary ---
Demographics + + + | Address | [address] | | | [place] [address] | + + + | Home Phone | | + + + | Preferred Language | Unknown | + + + | Marital Status | Single | + + + | Amish Affiliation | Unknown | + + + | Race | White | + + + | Ethnic Group | Not or | + + + Author + + + | Author | [facility] | + + + | Organization | [facility] | + + + | [...] Team Providers + +------+ + | Care Medicine Tech Name | Role | Phone | + +------+ + | No Pcp Per Patient | PCP | Unavailable | + +------+ + Encounter Details +--------+ + + + + | Date | Type | Department | Care Team | Description | +--------+ + + + + | 11/05/ | Transcribe | Center | Ama Rahman | | | 2020 | Orders | at [facility] [address] | MD Vickie,S [address] | | | | [address] | [place], | | | | | Physician's | [place] [address] | | | | | [place], 4th Floor | [phone] | | | | | [place] | | | | | | [address] | | | | | | [phone] | | | +--------+ + + + [...] 2019 | | Gynecology | MD Vickie,S [address] | | | | | | [place], | | | | | | [place] [address] | | | | | | [phone] | | | | | | | | +--------+ + + + + documented as of this encounter Results TELEMEDICINE ULTRASOUND (11/05/2019 8:02 AM PST) + + | Specimen | + + | | + + + + + | Narrative | Performed At | + + + | [facility] | [facility] | | OBSTETRICAL ULTRASOUND REPORT | RADIOLOGY OB US | | | | | Pat. Name: TANISHA LANDRUM Pat. No: [id number] Study | | | Date: 11/05/2019 11:12am , Age: 02 2000, 18 | | | Pregnancies: 2, Para 0010 LMP: 06/01/2019 | | | GA by LMP: 22w3d GA by US: 22w2d GA Selected: 22w3d | | | (LMP) LAUREN: 03/07/2020 Referring MD: Ita Glasgow MD | | | Endodontics Dentist: Ronel Way RDMS CPT4: [id number] | | | Hist/Ind: Completion of anatomy Growth | | | | | | MEASUREMENTS & AGE GROWTH EVALUATION | | | Measurement GA Range Srce %for GA Ratios | | | ----- ---- ------- BPD 5.6 | | | cm 23w0d (54s7a-65t4q) Hadl BPD 67% FL/BPD 0.71 HC 20.4 cm 22w4d | | | (47x2v-66k1y) Hadl HC 55% FL/AC 0.24 (0.20 - 0.24* AC 16.5 cm | | | 21w4d (76k6i-46y2x) Hadl AC 31% HC/AC 1.24 (1.04 - 1.23* FL | | | 4.0 cm 22w6d (80g7o-52s2j) Hadl FL 60% CI 0.78 (0.70 - 0.86) | | | GA for sonogram 22w2d (91i6d-86z9f) Weight Estimate: based on | | | (HC,FL) Hadlock Weight: 482 gm (412-553gm) Hadloc | | | : | | | 1lbs, 1oz | | | Normal: 508 gm (340-948gm) Brandi | | | Wt% 44% for 22w3d Heart Rate: 144 | | | bpm | | | | | | EVAL, PLACENTA Presentation: Breech Placenta: | | | Posterior Heart Rate: 144 bpm | | | Anatomy!Normal!Abnormal!Suboptimal!Prev. Seen!Comments | | | | | | Cranium ! ! ! ! x | | | ! CSP ! x ! ! ! | | | ! Falx Cerebri ! x ! ! ! | | | ! Cerebral Vent! x ! ! ! | | | ! Choroid Plexu! x ! ! ! | | | x ! Cerebellum ! ! ! ! | | | x ! Cisterna Magn! ! ! ! | | | x ! Nuchal Fold ! ! ! ! | | | x ! Neck ! x ! ! ! | | | ! Nose/Lips ! ! ! x | | | ! ! Face/Profile ! ! ! x | | | ! ! Nasal Bone ! ! ! | | | ! x ! Palate/Mandib! ! ! | | | ! x ! Orbits ! ! ! | | | ! x ! Chest/Lungs/R! ! ! | | | ! x ! Cardiac Epworth/! ! ! | | | ! x ! Four Chamber ! x ! ! | | | ! x ! LVOT ! x ! ! | | | ! ! RVOT ! x ! ! | | | ! x ! 3 Vessel View! x ! ! | | | ! ! 3V Trachael V! x ! ! | | | ! ! IVC/SVC ! x ! | | | ! ! x ! Aortic Arch ! ! | | | ! ! x ! Ductal Arch ! x ! | | | ! ! ! Diaphragm ! x ! | | | ! ! ! Stomach ! x ! | | | ! ! x ! Situs ! ! | | | ! ! x ! Gallbladder ! | | | ! ! ! x ! Liver/Spleen ! | | | ! ! ! x ! Bowel ! | | | ! ! ! x ! 3VC | | | ! ! ! ! x ! Abdominal | | | Wal! ! ! ! x ! Kidneys | | | ! x ! ! ! x ! Bladder | | | ! x ! ! ! x ! | | | Cervical Spin! ! ! ! x ! | | | Thoracic Spin! ! ! ! x ! | | | Lumbar Spine ! ! ! ! x ! | | | Sacral Spine ! ! ! ! x ! | | | Right Humerus! ! ! ! x ! | | | Right Radius/! ! ! ! x ! | | | Right Hand ! ! ! ! x ! | | | Left Humerus ! ! ! ! x ! | | | Left Radius/U! ! ! ! x ! | | | Left Hand ! x ! ! ! | | | ! Right Femur ! ! ! ! x | | | ! Right Tibia/F! ! ! ! x | | | ! Right Foot ! ! ! ! x | | | ! Left Femur ! ! ! ! x | | | ! Left Tibia/Fi! ! ! ! x | | | ! Left Foot ! ! ! ! | | | x ! Skin ! ! ! ! | | | x ! Sex (M) ! ! ! | | | ! x ! Sex ! ! ! | | | ! x ! | | | | | | CLINICAL SUMMARY Type of Gestation: Del Rosario Uterus and adnexae: | | | No abnormalities seen. There is heart motion and gross | | | movement. Ultrasound cannot detect all / abnormalities. | | | Impression: 18 year old at 22 3/7 weeks gestation (LMP=8 | | | wks US in office) who presents for ultrasound for completion of | | | anatomy and growth. 1. Single living intrauterine in breech | | | presentation. 2. Posterior placenta without placenta previa. 3. | | | Growth is appropriate, with average biometry = 22 2/7 wks gestation. | | | Normal AF volume. 4. Normal but incomplete due to position, | | | anatomic survey with no abnormalities identified. | | | Recommendations: 1. Ultrasound read remotely. 2. Repeat ultrasound | | | for completion of anatomy and growth in 4-6 weeks. Thank you very | | | much for allowing us to help care for your patient. If you have any | | | questions, please feel free to call our 24 hour phone consult number | | | at any time and ask for the perinatologist environmental law professor. [phone] | | | or [phone] GILDARDO COLLINS MD <Electronic | | | Signature> 11/05/2019 01:02pm I have personally reviewed the | | | images and, if necessary, edited the report. I agree with the | | | report as now presented. | | + + + + + | Procedure Note | + + | Dave Estes, Lia Res In Interface - 11/06/2019 3:03 PM PST | | [facility] OBSTETRICAL ULTRASOUND | | REPORT Pat. Name: | | [facility] [id number] Date: 11/05/2019 11:12amDOB, Age: | | 2000, 18Pregnancies: 2, Para 0010LMP: 06/01/2019 GA by LMP: | | 65m7jOI by US: [id number] Selected: 22w3d (LMP)LAUREN: 03/07/2020Referring MD: | | Ita Glasgow MDSonographer: Ronel Way RDMSCPT4: [id number]/Ind: | | Completion of anatomy | | Growth MEASUREMENTS | | & AGE GROWTH EVALUATIONMeasurement GA Range Srce | | %for GA Ratios ----- ---- ------- BPD | | 5.6 cm 23w0d (87w7i-59z3s) Hadl BPD 67% FL/BPD 0.71HC 20.4 cm 22w4d (07k0a-22s3e) Hadl | | HC 55% FL/AC 0.24 (0.20 - 0.24*AC 16.5 cm 21w4d (72i4v-38b7u) Hadl AC 31% HC/AC | | 1.24 (1.04 - 1.23*FL 4.0 cm 22w6d (90r4e-09w8b) Hadl FL 60% CI 0.78 (0.70 - | | 0.86)GA for sonogram 22w2d (49e8k-97y5s) Weight Estimate:based on (HC,FL) Rhett | | Weight: 482 gm (412-553gm) [facility] | | : 1lbs, 1oz Normal: 508 gm (340-948gm) Brandi | | Wt% 44% for 93i6iSfiss Heart Rate: 144 | | bpm | | EVAL, PLACENTAPresentation: BreechPlacenta: PosteriorFetal Heart Rate: 144 bpmFetal | | Anatomy!Normal!Abnormal!Suboptimal!Prev. | | Seen!Comments Crani | | um ! ! ! ! x !CSP ! x ! ! ! | | !Falx Cerebri ! x ! ! ! !Cerebral Vent! x ! | | ! ! !Choroid Plexu! x ! ! ! x | | !Cerebellum ! ! ! ! x !Cisterna Magn! ! ! | | ! x !Nuchal Fold ! ! ! ! x !Neck ! x | | ! ! ! !Nose/Lips ! ! ! x ! | | !Face/Profile ! ! ! x ! !Nasal Bone ! ! ! | | ! x !Palate/Mandib! ! ! ! x !Orbits ! | | ! ! ! x !Chest/Lungs/R! ! ! ! x | | !Cardiac Epworth/! ! ! ! x !Four Chamber ! x ! ! | | ! x !LVOT ! x ! ! ! !RVOT ! x | | ! ! ! x !3 Vessel View! x ! ! ! !3V | | Trachael V! x ! ! ! !IVC/SVC ! x ! ! | | ! x !Aortic Arch ! ! ! ! x !Ductal Arch ! x ! | | ! ! !Diaphragm ! x ! ! ! !Stomach | | ! x ! ! ! x !Situs ! ! ! ! | | x !Gallbladder ! ! ! ! x !Liver/Spleen ! ! | | ! ! x !Bowel ! ! ! ! x !3VC | | ! ! ! ! x !Abdominal Wal! ! ! ! x | | !Kidneys ! x ! ! ! x !Bladder ! x ! ! | | ! x !Cervical Spin! ! ! ! x !Thoracic Spin! | | ! ! ! x !Lumbar Spine ! ! ! ! x | | !Sacral Spine ! ! ! ! x !Right Humerus! ! ! | | ! x !Right Radius/! ! ! ! x !Right Hand ! | | ! ! ! x !Left Humerus ! ! ! ! x | | !Left Radius/U! ! ! ! x !Left Hand ! x ! ! | | ! !Right Femur ! ! ! ! x !Right Tibia/F! | | ! ! ! x !Right Foot ! ! ! ! x | | !Left Femur ! ! ! ! x !Left Tibia/Fi! ! ! | | ! x !Left Foot ! ! ! ! x !Skin ! | | ! ! ! x !Sex (M) ! ! ! ! x !Sex | | ! ! ! ! x | | ! CLINICAL | | SUMMARYType of Gestation: SingletonUterus and adnexae: No abnormalities seen.There is | | heart motion and gross movement.Ultrasound cannot detect all / | | abnormalities.Impression: 18 year old at 22 3/7 weeks gestation (LMP=8 wks US | | in office) who presents for ultrasound for completion of anatomy and growth.1. Single | | living intrauterine in breech presentation.2. Posterior placenta without | | placenta previa. 3. Growth is appropriate, with average biometry = 22 2/7 wks gestation. | | Normal AF volume.4. Normal but incomplete due to position, anatomic survey | | with no abnormalities identified.Recommendations:1. Ultrasound read remotely.2. Repeat | | ultrasound for completion of anatomy and growth in 4-6 weeks.Thank you very much for | | allowing us to help care for your patient. If you have any questions, please feel free | | to call our 24 hour phone consult number at any time and ask for the perinatologist on | | call. [phone] or [phone] COLLINS MD <Electronic | | Signature> 11/05/2019 01:02pmI have personally reviewed the images and, if necessary, | | edited the report. I agree with the report as now presented. | |3VC ! ! ! ! x ! | |Abdominal Wal! ! ! ! x ! | |Kidneys ! x ! ! ! x ! | |Bladder [...] Radius/U! ! ! ! x ! | |Left Hand ! x ! ! ! ! | |Right Femur ! ! ! [...] ! x ! | |Sex (M) ! ! ! ! x ! | |Sex ! ! ! ! x ! | | | |CLINICAL SUMMARY | |Type of Gestation: Del Rosario | |Uterus and adnexae: No abnormalities seen. | |There is heart motion and gross movement. | |Ultrasound cannot detect all / abnormalities. | |Impression: 18 year old at 22 3/7 weeks gestation (LMP=8 | |wks US in office) who presents for ultrasound for completion of | |anatomy and growth. | |1. Single living intrauterine in breech presentation. | |2. Posterior placenta without placenta previa. | |3. Growth is appropriate, with average biometry = 22 2/7 wks | |gestation. Normal AF volume. | |4. Normal but incomplete due to position, anatomic | |survey with no abnormalities identified. | |Recommendations: | |1. Ultrasound read remotely. | |2. Repeat ultrasound for completion of anatomy and growth in 4-6 | |weeks. | |Thank you very much for allowing us to help care for your patient. | |If you have any questions, please feel free to call our 24 hour | |phone consult number at any time and ask for the perinatologist on | |call. [phone] or [phone] | |GILDARDO COLLINS MD | | | |<Electronic Signature> 11/05/2019 01:02pm | | | | | |I have personally reviewed the images and, if necessary, edited the report. I agree with t he report as now presented. | + + + +---------+ + + | Performing | Address | City/State[facility] | Phone Number | | Organization | | | | + +---------+ + + | [facility] | | | | | [place] | | | | + +---------+ + + documented in this encounter Visit Diagnoses + + | Diagnosis | + + | screening for chromosomal anomaly by amniocentesis - Primary Screening for | | chromosomal anomalies by amniocentesis | + + documented in this encounter"
--- OUTSIDE RECORDS SUMMARY | ~2020-03-06 | XMS | Encounter Summary ---
Demographics + + + | Address | [address] | | | [place] [address] | + + + | Home Phone | | + + + | Preferred Language | Unknown | + + + | Marital Status | Single | + + + | Zoroastrian Affiliation | Unknown | + + + | Race | White | + + + | Ethnic Group | Not or | + + + Author + + + | Author | [facility] | + + + | Organization | [facility] | + + + | [...] Team Providers + +------+ + | Care Money Market Clerk Name | Role | Phone | + +------+ + | No Pcp Per Patient | PCP | Unavailable | + +------+ + Encounter Details +--------+ + + + + | Date | Type | Department | Care Team | Description | +--------+ + + + + | 03/04/ | Telephone | [facility] | Pentopoulos, | | | 2020 | | [facility] [address] | MD Lizabeth [address] | | | | | [address] | [address] | | | | | [address], [place] | [place], [place] | | | | | [address] | [address] | | | | | [phone] | [phone] | | | | | | | [...] 2020 | | Gynecology | MD Vickie,[address] | | | | | | [place], | | | | | | [place] [address] | | | | | | [phone] | | | | | | | | +--------+ + + + + documented as of this encounter Visit Diagnoses Not on filedocumented in this encounter"
--- OUTSIDE RECORDS SUMMARY | ~2020-03-06 | XMS | Encounter Summary ---
Demographics + + + | Address | [address] | | | [place] [address] | + + + | Home Phone | | + + + | Preferred Language | Unknown | + + + | Marital Status | Single | + + + | Temple Affiliation | Unknown | + + + [...] Team Providers + +------+ + | Care Form Building Supervisor Name | Role | Phone | + +------+ + | No Pcp Per Patient | PCP | Unavailable | + +------+ + Reason for Visit + + + | Reason | Comments | + + + | | lab results | + + + Encounter Details +--------+ + + + + | Date | Type | Department | Care Team | Description | +--------+ + + + + | 09/02/ | Telephone | [place] | Ita Glasgow, | (lab | | 2019 | | [facility] [address] | results) | | | | [address] [place], [place] | | | | | [address] [place], [place] | [address] | | | | | [address] | [phone] | | | | | [phone] | | | +--------+ + + + [...] 2020 | | Gynecology | MD Vickie,[address] | | | | | | [place], | | | | | | [place] [address] | | | | | | [phone] | | | | | | | | +--------+ + + + + documented as of this encounter Visit Diagnoses Not on filedocumented in this encounter"
--- OUTSIDE RECORDS SUMMARY | ~2020-03-06 | XMS | Encounter Summary ---
Demographics + + + | Address | [address] | | | [place] [address] | + + + | Home Phone [...] Author + + + | Author | [facility] | + + + | Organization | [facility] | + + + | Address [...] Team Providers + +------+ + | Care Manager Customer Service Name | Role | Phone | + +------+ + | No Pcp Per Patient | PCP | Unavailable | + +------+ + Reason for Visit + + + | Reason | Comments | + + + | care | 1st tri sono | + + + Consultation (Routine) +--------+--------+ + + + + | Status | Reason | Specialty | Diagnoses / | Referred By | Referred To | | | | | Procedures | Contact | Contact | +--------+--------+ + + + + | Closed | | Obstetrics & | Diagnoses | McMc | McMc Overlock Collar Setter | | | | Gynecology | Less than 8 | Overlock Collar Setter Mob | Mob [address] | | | | | weeks | [address] | | | | | gestation of | [address] | [address] | | | | | | [address] | [place], | | | | | | [place], [place] | [place] [address] | | | | | | [address] | Phone: | | | | | | Phone: | [phone] | | | | | | [phone] | Fax: | | | | | | Fax: | [phone] | | | | | | [phone] | | +--------+--------+ + + + + Encounter Details +--------+ + + + + | Date | Type | Department | Care Team | Description | +--------+ + + + + | 04/23/ | | [facility] | Philippe, | care (1st | | 2019 | | [facility] [address] | MD Lizabeth [address] | tiffany tiwari) | | | | [address] | [address] | | | | | [address] [place], [place] | [place], [place] | | | | | [address] | [address] | | | | | [phone] | [phone] | | | | | | | [...] + + + | Blood Pressure | 92/48 | 04/23/2019 10:11 AM | | | | | PDT [...] Weight | 56.7 kg (125 lb) | 04/23/2019 10:11 AM | | | | | PDT | | + + + + + | Height | 166.4 cm (5' 5.5") | 04/23/2019 10:11 AM | | | | | PDT | | + + + + + | Body Mass Index | 20.48 | 04/23/2019 10:11 AM | | | | | PDT | | + + + + + documented in this encounter Progress Notes Candice Calle MA - 04/23/2019 10:15 AM PDTMiriam is having some cramping before a BM. She h as had some random spotting with small clots. Her is a PKU carrier and she is intere sted in screening.-JOEY Rangel izabeth Paez MD - 04/23/2019 10:15 AM PDTS: Tanisha is a at 9w6d who pre sents today for a a first trimester ultrasound. Her complaints today are vaginal spotting x 1 week and lower back pain prior to having a bowel movement or passing gas. She has been licona ving postcoital bleeding. O: General: NAD Abdomen: Soft, gravid. Psych: Appropriate mood and affect Ultrasound performed today non-viable . See imaging for full details of ultrasoun d. A: Tanisha is a at 9w6d with missed measuring 8 weeks 3 days. P: 1. Discussed with patient and her significant other diagnosis of missed . We discu ssed that she could do expectant management, do a medical miscarriage or do a D&C. Discusse d risks and benefits of each. At this time she would rather do expectant management. She w ill follow up with us in 2 weeks to let us know how she is doing. Will get blood type and R h today as well as CBC. We discussed that when she miscarriages, she can attempt for pregna ncy after her next menstrual cycle. Advised her to continue taking a vitamin or fo lic acid. documented in th is encounter Plan of Treatment +--------+ + + + + | Date | Type | Specialty | Care Team | Description | +--------+ + + + + | 03/08/ | | Obstetrics & | Ama Rahman | | | 2019 | | Gynecology | MD Vickie,[address] | | | | | | [place], | | | | | | [place] [address] | | | | | | [phone] | | | | | | | | +--------+ + + + + documented as of this encounter Procedures + +--------+ + + + | Procedure Name | Priori | Date/Time | Associated Diagnosis | Comments | | | ty | | | | + +--------+ + + + | CLINIC OB | Routin | 04/23/2019 | Possible | Results for this | | TRANSVAGINAL REAL | e | | , not yet | procedure are in the | | TIME | | | confirmed | results section. | + +--------+ + + + documented in this encounter Results ABO & RH TYPE (04/23/2019 11:45 AM [...] + | [facility] | and [place] | [place], [place] | | | | Streets | [address] | | + + + + + US CLINIC OB TRANSVAGINAL REAL TIME (04/23/2019) + + + | Impressions | Performed At | + + + | History: 18 y.o. at 10w0d by LMP with vaginal bleeding | [facility] | | presenting for a first trimester OB ultrasound. Viable hurt | CARE TESTING | | with CRL measuring 19.4mm, consistent with 8 weeks 3 days. | | | FHR: ABSENT bpm Placenta: Not Visualized Uterus: normal Right | | | Ovary: Not visualized Left Ovary: Not visualized Impression: | | | 18 y.o. at 8w3d weeks gestation with nonviable . | | | Findings consistent with missed . Recommendations: I | | | reviewed the findings of today's ultrasound with Tanisha Michel | | | Patient plans for expectant management at this time. Performed | | | and read by Lizabeth Paez MD on 04/23/19 Type of ultrasound: | | | transvaginal | | + + + + +---------+ + + | Performing | Address | City/State/Zipcode | Phone Number | | Organization | | | | + +---------+ + + | [facility] | | | | | TESTING | | | | + +---------+ + + documented in this encounter Visit Diagnoses + + | Diagnosis | + + | Missed - Primary | + + | Possible , not yet confirmed examination or test, | | unconfirmed | + + | Vaginal bleeding in Unspecified antepartum hemorrhage, unspecified as to | | episode of care | + + documented in this encounter
--- OUTSIDE RECORDS SUMMARY | ~2020-03-06 | XMS | Encounter Summary ---
Demographics + + + | Address | [address] | | | [place] [address] | + + + | Home Phone | | + + + | Preferred Language | Unknown | + + + | Marital Status | Single | + + + | Cheondoism Affiliation | Unknown | + + + | Race | White | + + + | Ethnic Group | Not or | + + + Author + + + | Author | [facility] | + + + | Organization | [facility] | + + + | [...] Team Providers + +------+ + | Care Baker Biscuit Name | Role | Phone | + +------+ + | No Pcp Per Patient | PCP | Unavailable | + +------+ + Reason for Visit + + + | Reason | Comments | + + + | Lab Order | PKU screening | + + + Encounter Details +--------+ + + + + | Date | Type | Department | Care Team | Description | +--------+ + + + + | 05/13/ | Telephone | [facility] | Philippe, | Lab Order (PKU | | 2019 | | [facility] [address] | MD Lizabeth [address] | screening ) | | | | [address] | | | | | [address] [place], [place] | [place] | | | | | [address] | [address] | | | | | [phone] | [phone] | | | | | | | [...] | 2020 | | Gynecology | MD Vickie,[facility] [address] | | | | | | [place], | | | | | | [place] [address] | | | | | | [phone] | | | | | | | | +--------+ + + + + documented as of this encounter Visit Diagnoses Not on filedocumented in this encounter"
--- OUTSIDE RECORDS SUMMARY | ~2020-03-06 | XMS | Encounter Summary ---
Demographics + + + | Address | [address] | | | [place] [address] | + + + | Home Phone | | + + + | Preferred Language | Unknown | + + + | Marital Status | Single | + + + | Hindu Affiliation | Unknown | + + + [...] Team Providers + +------+ + | Care Head Scorer Name | Role | Phone | + +------+ + | No Pcp Per Patient | PCP | Unavailable | + +------+ + Encounter Details +--------+ + + + + | Date | Type | Department | Care Team | Description | +--------+ + + + + | 10/15/ | Transcribe | Center | Transcribe | | | 2020 | Orders | at [facility] [address] | Encounter, Provider, | | | | | [address] | MD [address] | | | | | Physician's | [place] [address] | | | | | [place], [address] Floor | | | | | | [place], [place] | | | | | | [address] | | | | | | [phone] | | | +--------+ + + + [...] | 03/08/ | | Obstetrics & | Aki Rahman | | | 2019 | | Gynecology | MD Vickie,[address] | | | | | | [place], | | | | | | [place] [address] | | | | | | [phone] | | | | | | | | +--------+ + + + + documented as of this encounter Results TELEMEDICINE ULTRASOUND (10/15/2019 7:33 AM PST) + + | Specimen | + + | | + + + + + | Narrative | Performed At | + + + | [facility] | [facility] | | OBSTETRICAL ULTRASOUND REPORT | RADIOLOGY OB US | | | | | Pat. Name: TANISHA LANDRUM Pat. No: [id number] | | | Study Date: 10/15/2019 9:26am , Age: 02 2000, 18 | | | Pregnancies: 2, Para 0010 LMP: Unknown GA by | | | US: 19w1d GA Selected: 19w3d (From Known E) LAUREN: | | | 03/07/2020 Referring MD: AKI RAHMAN Tape Control Skin Or Spar Mill Operator: | | | Ronel [address] CPT4: [id number] | | | | | | MEASUREMENTS & AGE GROWTH EVALUATION | | | Measurement GA Range Srce %for GA Ratios | | | ----- ---- ------- BPD 4.5 | | | cm 19w3d (68m5q-13c0h) Hadl BPD 51% FL/BPD 0.69 HC 16.3 cm 19w1d | | | (27r9d-85a1n) Hadl HC 39% FL/AC 0.22 AC 13.8 cm 19w1d | | | (28o4e-69v1r) Hadl AC 45% HC/AC 1.19 (1.06 - 1.25) FL 3.1 cm | | | 19w4d (88n2m-63y6z) Hadl FL 53% CI 0.77 (0.70 - 0.86) HL | | | 3.0 cm 19w6d (08a0a-98q0u) Ilan HL 58% Cere 2.2 cm | | | [facility] [place] for sonogram 19w1d (70g5n-72n6r) | | | Weight Estimate: based on (BPD,HC,AC,FL) Rhett | | | Weight: 286 gm (245-328gm) Hadlo | | | : 0lbs, 10oz Markers for Chromosomal | | | Abnormality: NF 4.4 mm Cervix: Length: 3.4 cm Heart | | | Rate: 143 bpm | | | | | | EVAL, PLACENTA Presentation: Cephalic Umbilical | | | Cord: 3 Vessels Placenta: Posterior Previa: No previa seen | | | Heart Rate: 143 bpm Gender: Male | | | Anatomy!Normal!Abnormal!Suboptimal!Prev. Seen!Comments | | | | | | Cranium ! x ! ! ! | | | ! CSP ! ! ! x ! | | | ! Falx Cerebri ! ! ! x ! | | | ! Cerebral Vent! ! ! x ! | | | ! Choroid Plexu! x ! ! ! | | | ! Cerebellum ! x ! ! ! | | | ! Cisterna Magn! x ! ! ! | | | ! Nuchal Fold ! x ! ! ! | | | ! Neck ! ! ! x ! | | | ! Nose/Lips ! ! ! x | | | ! ! Face/Profile ! ! ! x | | | ! ! Nasal Bone ! x ! ! | | | ! ! Palate/Mandib! x ! ! | | | ! ! Orbits ! x ! ! | | | ! ! Chest/Lungs/R! x ! ! | | | ! ! Cardiac [place]/! x ! ! | | | ! ! Four Chamber ! x ! ! | | | ! ! LVOT ! ! ! | | | x ! ! RVOT ! x ! ! | | | ! ! 3 Vessel View! ! ! | | | x ! ! 3V Trachael V! ! ! | | | x ! ! IVC/SVC ! x ! | | | ! ! ! Aortic Arch ! x ! | | | ! ! ! Ductal Arch ! ! | | | ! x ! ! Diaphragm ! ! | | | ! x ! ! Stomach ! x ! | | | ! ! ! Situs ! x | | | ! ! ! ! Gallbladder ! x | | | ! ! ! ! Liver/Spleen ! x | | | ! ! ! ! Bowel ! | | | x ! ! ! ! 3VC | | | ! x ! ! ! ! Abdominal | | | Wal! x ! ! ! ! Kidneys | | | ! x ! ! ! ! Bladder | | | ! x ! ! ! ! | | | Cervical Spin! x ! ! ! ! | | | Thoracic Spin! x ! ! ! ! | | | Lumbar Spine ! x ! ! ! ! | | | Sacral Spine ! x ! ! ! ! | | | Right Humerus! x ! ! ! ! | | | Right Radius/! x ! ! ! ! | | | Right Hand ! x ! ! ! ! | | | Left Humerus ! x ! ! ! ! | | | Left Radius/U! x ! ! ! ! | | | Left Hand ! ! ! x ! | | | ! Right Femur ! x ! ! ! | | | ! Right Tibia/F! x ! ! ! | | | ! Right Foot ! x ! ! ! | | | ! Left Femur ! x ! ! ! | | | ! Left Tibia/Fi! x ! ! ! | | | ! Left Foot ! x ! ! ! | | | ! Skin ! x ! ! ! | | | ! Sex (M) ! x ! ! ! | | | ! Sex ! x ! ! | | | ! ! | | | | | | CLINICAL SUMMARY Type of Gestation: Del Rosario Uterus and adnexae: | | | No abnormalities seen. There is heart motion and gross | | | movement. Ultrasound cannot detect all / abnormalities. | | | Impression: 18 year old at 19 3/7 weeks gestation with a | | | history of tobacco use who presents for anatomy scan. 1. Single | | | living intrauterine in cephalic presentation. 2. Posterior | | | placenta without placenta previa. 3. Growth is appropriate, | | | consistent with 19 3/7 weeks gestation. 4. Normal anatomic | | | survey with no abnormalities identified. Survey could not be | | | completed due to position. Recommendations: 1. Follow-up US in | | | 3 weeks for completion of survey and assessment of growth. | | | Thank you very much for allowing us to help care for your patient. | | | If you have any questions, please feel free to call our 24 hour | | | phone consult number at any time and ask for the perinatologist on | | | call. [phone] or [phone] CINDY BERMAN MD | | | <Electronic Signature> 10/15/2019 11:21am | | | I have personally reviewed the images and, if necessary, edited the | | | report. I agree with the report as now presented. | | + + + + + | Procedure Note | + + | Lia Pettit Res In Interface - 10/15/2019 11:22 AM PST | | [facility] OBSTETRICAL ULTRASOUND | | REPORT Pat. Name: | | TANISHA LANDRUM. No: [id number] Date: 10/15/2019 9:26amDOB, Age: | | 2000, 18Pregnancies: 2, Para 0010LMP: UnknownGA by US: | | [id number] Selected: 19w3d (From Known E)LAUREN: 03/07/2020Referring MD: NEVAEH, | | CARRINGTONEENSonographer: Ronel Way RDMSCPT4: | | [id number] | | & AGE GROWTH EVALUATIONMeasurement GA Range Srce %for | | GA Ratios ----- ---- ------- BPD 4.5 | | cm 19w3d (32e3g-41d3p) Hadl BPD 51% FL/BPD 0.69HC 16.3 cm 19w1d (24e7k-11o5c) Hadl HC | | 39% FL/AC 0.22AC 13.8 cm 19w1d (35g1m-99w2f) Hadl AC 45% HC/AC 1.19 (1.06 - 1.25)FL | | 3.1 cm 19w4d (40e7o-50g5c) Hadl FL 53% CI 0.77 (0.70 - 0.86)HL 3.0 cm 19w6d | | (31e2w-38r8y) Ilan HL 58%Cere 2.2 cm [place] for sonogram | | 19w1d (99v5y-56a2g) Weight Estimate:based on (BPD,HC,AC,FL) Hadlock Weight: | | 286 gm (245-328gm) Hadloc : 0lbs, 10ozMarkers | | for Chromosomal Abnormality:NF 4.4 mmCervix: Length: 3.4 cmFetal Heart Rate: 143 | | bpm | | EVAL, PLACENTAPresentation: CephalicUmbilical Cord: 3 VesselsPlacenta: PosteriorPrevia: | | No previa seenFetal Heart Rate: 143 bpmGender: MaleFetal | | Anatomy!Normal!Abnormal!Suboptimal!Prev. | | Seen!Comments Crani | | um ! x ! ! ! !CSP ! ! ! x ! | | !Falx Cerebri ! ! ! x ! !Cerebral Vent! ! | | ! x ! !Choroid Plexu! x ! ! ! | | !Cerebellum ! x ! ! ! !Cisterna Magn! x ! ! | | ! !Nuchal Fold ! x ! ! ! !Neck ! | | ! ! x ! !Nose/Lips ! ! ! x ! | | !Face/Profile ! ! ! x ! !Nasal Bone ! x ! ! | | ! !Palate/Mandib! x ! ! ! !Orbits ! x | | ! ! ! !Chest/Lungs/R! x ! ! ! | | !Cardiac [place]/! x ! ! ! !Four Chamber ! x ! ! | | ! !LVOT ! ! ! x ! !RVOT ! x | | ! ! ! !3 Vessel View! ! ! x ! !3V | | Trachael V! ! ! x ! !IVC/SVC ! x ! ! | | ! !Aortic Arch ! x ! ! ! !Ductal Arch ! ! | | ! x ! !Diaphragm ! ! ! x ! !Stomach | | ! x ! ! ! !Situs ! x ! ! ! | | !Gallbladder ! x ! ! ! !Liver/Spleen ! x ! | | ! ! !Bowel ! x ! ! ! !3VC | | ! x ! ! ! !Abdominal Wal! x ! ! ! | | !Kidneys ! x ! ! ! !Bladder ! x ! ! | | ! !Cervical Spin! x ! ! ! !Thoracic Spin! | | x ! ! ! !Lumbar Spine ! x ! ! ! | | !Sacral Spine ! x ! ! ! !Right Humerus! x ! ! | | ! !Right Radius/! x ! ! ! !Right Hand ! x | | ! ! ! !Left Humerus ! x ! ! ! | | !Left Radius/U! x ! ! ! !Left Hand ! ! ! | | x ! !Right Femur ! x ! ! ! !Right Tibia/F! x | | ! ! ! !Right Foot ! x ! ! ! | | !Left Femur ! x ! ! ! !Left Tibia/Fi! x ! ! | | ! !Left Foot ! x ! ! ! !Skin ! x | | ! ! ! !Sex (M) ! x ! ! ! !Sex | | ! x ! ! ! | | ! CLINICAL | | SUMMARYType of Gestation: SingletonUterus and adnexae: No abnormalities seen.There is | | heart motion and gross movement.Ultrasound cannot detect all / | | abnormalities.Impression: 18 year old at 19 3/7 weeks gestation with a history | | of tobacco use who presents for anatomy scan.1. Single living intrauterine in | | cephalic presentation.2. Posterior placenta without placenta previa. 3. Growth is | | appropriate, consistent with 19 3/7 weeks gestation.4. Normal anatomic survey with | | no abnormalities identified. Survey could not be completed due to | | position.Recommendations:1. Follow-up US in 3 weeks for completion of survey and | | assessment of growth.Thank you very much for allowing us to help care for your | | patient. If you have any questions, please feel free to call our 24 hour phone consult | | number at any time and ask for the perinatologist auction block clerk. [phone] or | | [phone] BERMAN MD <Electronic Signature> 10/15/2019 | | 11:21amI have personally reviewed the images and, if necessary, edited the report. I | | agree with the report as now presented. | |Situs ! x ! ! ! ! | |Gallbladder ! x ! ! ! ! | |Liver/Spleen ! x ! ! ! ! | |Bowel ! x ! ! ! ! | |3VC ! x ! ! ! ! | |Abdominal Wal! x ! ! ! ! | |Kidneys ! x ! ! ! ! | |Bladder ! x ! ! ! ! | |Cervical Spin! x ! ! ! ! | |Thoracic Spin! x ! ! ! ! | |Lumbar Spine ! x ! ! ! ! | |Sacral Spine ! x ! ! ! ! | |Right Humerus! x ! ! ! ! | |Right Radius/! x ! ! ! ! | |Right Hand ! x ! ! ! ! | |Left Humerus ! x ! ! ! ! | |Left Radius/U! x ! ! ! ! | |Left Hand ! ! ! x ! ! | |Right Femur ! x ! ! ! ! | |Right Tibia/F! x ! ! ! ! | |Right Foot ! x ! ! ! ! | |Left Femur ! x ! ! ! ! | |Left Tibia/Fi! x ! ! ! ! | |Left Foot ! x ! ! ! ! | |Skin ! x ! ! ! ! | |Sex (M) ! x ! ! ! ! | |Sex ! x ! ! ! ! | | | |CLINICAL SUMMARY | |Type of Gestation: Del Rosario | |Uterus and adnexae: No abnormalities seen. | |There is heart motion and gross movement. | |Ultrasound cannot detect all / abnormalities. | |Impression: 18 year old at 19 3/7 weeks gestation with a | |history of tobacco use who presents for anatomy scan. | |1. Single living intrauterine in cephalic presentation. | |2. Posterior placenta without placenta previa. | |3. Growth is appropriate, consistent with 19 3/7 weeks gestation. | |4. Normal anatomic survey with no abnormalities identified. | |Survey could not be completed due to position. | |Recommendations: | |1. Follow-up US in 3 weeks for completion of survey and assessment | |of growth. | |Thank you very much for allowing us to help care for your patient. | |If you have any questions, please feel free to call our 24 hour | |phone consult number at any time and ask for the perinatologist on | |call. [phone] or [phone] | |CINDY BERMAN MD | | | |<Electronic Signature> 10/15/2019 11:21am | | | | | |I have personally reviewed the images and, if necessary, edited the report. I agree with t he report as now presented. | + + + +---------+ + + | Performing | Address | City/State[facility] | Phone Number | | Organization | | | | + +---------+ + + | [facility] | | | | | [place] | | | | + +---------+ + + documented in this encounter Visit Diagnoses + + | Diagnosis | + + | Encounter for screening for malformation using ultrasound - Primary | + + documented in this encounter"
--- OUTSIDE RECORDS SUMMARY | ~2020-03-06 | XMS | Encounter Summary ---
Demographics + + + | Address | [address] | | | [place] [address] | + + + | Home Phone | | + + + | Preferred Language | Unknown | + + + | Marital Status | Single | + + + | Mandaeism Affiliation | Unknown | + + + [...] Team Providers + +------+ + | Care Supervisor General Name | Role | Phone | + [...] | +--------+ + + + + | 09/15/ | | [place] [place] | Ama Rahman | care | | 2019 | | [facility] | MD Vickie,S [address] [place], | | | | | [address] [place], [place] | [place] [address] | | | | | [address] | [phone] | | | | | [phone] | | | +--------+ + + + [...] + + + | Blood Pressure | 114/64 | 09/15/2019 8:52 AM | | | | | PST [...] + + + + | Weight | 58.1 kg (128 lb) | 09/15/2019 8:52 AM | | | | | PST | | + + + + + | Height | - | - | | + + + + + | Body Mass Index | 20.82 | 07/28/2019 9:25 AM | | | | | PDT | | + + + + + documented in this encounter Patient Instructions Patient Instructions Janessa Brito MA - 09/15/2019 9:15 AM PSTFormatting of this note migh t be different from the original. Visit - Week 16 Congratulations, you are now in your second trimester. Usually this means you are feeling a little better. . . a little less fatigued and a little less nauseated. Please read chapter s 5 and 21 in your book. Genetic Screening and Ultrasound Some of you may have already completed some testing for genetic screening. Are yo u doing the Sequential Screening for genetic problems? If so, your second test should be do ne between 16 and 18 weeks gestation. Although, some women elect to skip this. Also, coming up is your mid- ultrasound. If you didn t schedule that at your vi sit today, call the clinic and get that done. We want to do this scan just AFTER the mid-po int of .just after 20 weeks. Doing this scan after 20 weeks means your baby is big enough for us to see more of the baby s anatomy. Although ultrasound cannot see ev erything and thus cannot pickling tank operator all problems, it can provide us with reasonable assurance t hat your baby is growing normally. What is a ultrasound? ultrasound is a test that lets your doctor see an image of your baby. Your doctor emerson rns information about your baby from this picture. You may find out, for example, if you are having a boy or a girl. But the main reason you have this test is to get information about your baby's health. (You may hear your baby called a fetus. This is a common medical term for a baby that's kirti wing in the mother's uterus.) What kind of information can you learn from this test? The findings of an ultrasound fall into two categories, normal and abnormal. Normal The fetus is the right size for its age. The placenta is the expected size and does not cover the cervix. There is enough amniotic fluid in the uterus. No defects can be seen. Abnormal The fetus is small or large for its age. The placenta covers the cervix. There is too much or too little amniotic fluid in the uterus. The fetus may have a defect. What does an abnormal result mean? Abnormal seems to imply that something is wrong with your baby. But what it means is that t he test has shown something the doctor wants to take a closer look at. And that's what happens next. Your doctor will talk to you about what further test or tests you may need. What are some possible results? Some of the things your doctor may see on an abnormal ultrasound include: Echogenic bowel. The bowel looks very bright on the screen. This could mean there is blo od in the bowel. Or it could mean that something is blocking the small bowel. Increased nuchal translucency. The ultrasound measures the thickness at the back of the baby's neck. An increase in thickness is sometimes an early sign of Down syndrome. Increased or decreased amniotic fluid. The doctor will look for a reason for the level o f amniotic fluid and will watch the closely as it progresses. Large ventricles. Ventricles in the brain look larger than they should. Your doctor may take a closer look at the brain. Renal pyelectasis/hydronephrosis. The ultrasound measures an area of the baby's renal pe lvis. If the area is larger than expected, there is a chance of urinary tract or kidney prob lems. Short long bones. The ultrasound measures certain arm and leg bones. A long bone (humeru s or femur) that is shorter than average could be a sign of Down syndrome. What do you do now? Take a deep breath, and let it out. Keep in mind that an abnormal finding on an ultrasound, after it's coupled with more information, may: route driver salesperson to be nothing. route driver salesperson to be something mild that won't affect the baby. route driver salesperson to be something more serious. But if this happens, early diagnosis helps you an d your doctor plan treatment options sooner rather than later. Nutrition Today s Nutritional Valentine is this: Eat enough; but don t over-eat. Are you really eat ing for TWO? Well, yes and no. But one of you is pretty small. Early in , no inc rease in calories is really needed. In the last months of , a woman only needs an additional 300 calories (that s about 2 glasses of milk OR three slices of bread). Howev er, a focus just on calories misses a major point about nutrition ..(unless you re getti ng too many - which can lead to excess weight gain for both you and your baby). Think qual ity, not quantity. Certainly, if you think you re not getting enough calories, call us. Last visit s Nutritional Valentine was this: Keep it simple, eat the equivalent of three heal thy meals and three healthy snacks. What is healthy? Generally, healthy is more easily fou nd on the margins of the supermarket, not in the rows. Healthy is the produce department, d airy cases, and meat department. Healthy is fresh fruits, fresh vegetables, whole grains, u nsweetened dairy products, cheeses, eggs, meats and fish. Think twice if food comes in a delmer x or package, especially if the food was processed or changed in some way (like turning corn into oil-fried corn chips). Read the ingredients did they add fat, sugar, or salt? H ealthy is also whole that means brown rice instead of white rice; whole grain breads an d cereals instead of white bread. How much weight should I gain? This is one of the toughest questions we address duri ng . The common advice to gain 25-35 pounds is at most a broad guideline. E ach woman is special and unique, and many women gain more or less than this and have healthy pregnancies and babies. The more difficult answer is that weight gain is less important th an the quality of your nutrition. But it is likely that you will gain weight. So, using we ight gain as a guide in must take into account some individual variation. We use the Body Mass Index (BMI), a calculation based on your height and weight, to begin this conv ersation. Last 1 Encounter BMI Readings: Date BMI 08/18/2019 20.33 kg/m2 BMI Recommended Weight Gain (lbs) <18.5 28-40 18-24.9 25-35 25-29.9 15-25 30-34.9 11-20 >35 0-9 Where does the weight go? Baby 8 lbs Placenta 2-3 lbs Amniotic Fluid 2-3 lbs Breast Tissue 2-3 lbs Blood Supply 4 lbs Fat stores for delivery & breast feeding 5-9 lbs Uterus increase 2-5 lbs TOTAL 25-35 lbs Again ..keep it simple ..the equivalent of three, healthy meals and three healthy snack s. Fresh, whole foods. Fruits and vegetables. 71g of a high-quality protein every day (eg gs, dairy, meats, fish, chicken, beans/grains). and stay away from empty calories . What are empty calories ? .foods, th at is, junk foods, that provide calories but no other nutrition. The classic examples are c hips, sodas, cakes, cookies, ice cream. With that said, variety is the spice of life, and a good diet can include the occasional treat. Another important nutrient (although it s really not a nutrient, per se) is fiber. Gener ally speaking, most of us don t get enough of it. Fiber is the fibrous part of fruits and vegetables that human beings cannot digest. So, why would we need a food component that we don t digest? ? Fiber helps rid our bodies of the toxins and waste-products produced in the liver. ? Fiber is the bulk of our poop ? Fiber helps rid our bodies of high levels of cholesterol ? Fiber helps us moderate our blood sugars ? Fiber helps nourish the good bacteria that live in our gut Most modern diets do not provide our bodies with enough fiber. In fact, the modern grocery store can actually sabotage our efforts to eat a healthy diet. As consumers we are pushed toward too much fat, too much sugar, too much salt, too much processed food, and not nearly enough fiber. Thus, the modern diet sets us up for weight gain, diabetes, high blood pressu re, and .constipation. Human beings are omnivores ..we can eat a little of everyt nikki. Our primitive ancestors ate a diet that included large amounts of fiber. Meats, dair y products, eggs, and fish were luxurious, infrequent additions to what was probably a diet of mostly plants (fruits and vegetables) and thus, a lot more fiber. For some women, compounds the potential for constipation. The muscles in the wal ls of the intestines (which move food along the digestive tract) relax during - slo wing down the movement of food through the body. As the passage of food slows down , the last few feet of bowel (the colon) have more time to pull water out of the fiber that makes it that far and instead of soft poop, the stool becomes hard. If there s not m ore fiber coming down the pike, the hard stool sits in the colon and gets harder and you ve got a problem. Here are suggestions for avoiding constipation: ? Get plenty of fiber ? Drink plenty of water (avoid a lot of fluids that are sweet) ? Get plenty of exercise Unfortunately, all intestines are not created equal. Some women s digestive systems are just slower than others. can compound problems with constipation. If you are one of those women, talk to us. We have more tricks in the bag for dealing with constipation, including: ? Prunes. All that you ve heard is true. Start with prunes. ? Bulk additives, like psyllium, a grain product that holds water ? Senna, a grain product that also helps stimulate the gut (a laxative) ? Docusate, a medicine that helps the stool retain moisture Numerous other laxative products (talk to us before you try any laxative products). Exercise Did we mention exercise? It s something we all need to do ..every day ..even pregnan t women. About 30 minutes of moderate exertion most days of the week. That could be a bris k walk, a workout program designed for women, or the moderate exercise that you v e always done. does change your body in some ways that may impact your exercise regimen: ? Sometimes, if you overdo it, you ll be more fatigued and recover more slowly ? The cartilage and ligaments that pad and hold your joints together soften during pregnanc y. Thus, you might be more susceptible to injury if you start an unfamiliar activity or pus h your body too hard ? Dehydration can make the uterus contract ..so, keep drinking those fluids during exerci se. Weeks 14 to 18 of Your : Care Instructions Your Care Instructions During this time, you may start to "show," so that you look to people around you. You may also notice some changes in your skin, such as itchy spots on your palms or acne on your face. Your baby is now able to pass urine, and your baby's first stool (meconium) is starting to collect in his or her intestines. Hair is also beginning to grow on your baby's head. At your next visit, between weeks 18 and 20, your doctor may do an ultrasound test. The kiah t allows your doctor to check for certain problems. Your doctor can also tell the sex of you r baby. This is a good time to think about whether you want to know whether your baby is a b oy or a girl. Talk to your doctor about getting a flu shot to help keep you healthy during your . As your moves along, it is common to worry or feel anxious. Your body is changing a lot. And you are thinking about giving , the health of your baby, and becoming a par ent. You can learn to cope with any anxiety and stress you feel. Follow-up care is a pena part of your treatment and safety. Be sure to make and go to all ap pointments, and call your doctor if you are having problems. It's also a good idea to know y our test results and keep a list of the medicines you take. How can you care for yourself at home? Reduce stress Ask for help with cooking and housekeeping. Figure out who or what causes your stress. Avoid these people or situations as much a s possible. Relax every day. Taking 10- to 15-minute breaks can make a big difference. Take a wal k, listen to music, or take a warm bath. Learn relaxation techniques at or yoga class. Or buy a relaxation tape. List your fears about having a baby and becoming a parent. Share the list with someon e you trust. Decide which worries are really small, and try to let them go. Exercise If you did not exercise much before , start slowly. Walking is best. Pace yo urself, and do a little more every day. Brisk walking, easy jogging, low-impact aerobics, water aerobics, and yoga are good c harman. Some sports, such as scuba diving, horseback riding, downhill skiing, gymnastics, an d water skiing, are not a good idea. Try to do at least 2 hours a week of moderate exercise, such as a fast walk. One wa y to do this is to be active 30 minutes a day, at least 5 days a week. It's fine to be activ e in blocks of 10 minutes or more throughout your day and week. Wear loose clothing. And wear shoes and a bra that provide good support. Warm up and cool down to start and finish your exercise. If you want to use weights, be sure to use light weights. They reduce stress on your joints. Stay at the best weight for you Experts recommend that you gain about 1 pound a month during the first 3 months of yo ur . Experts recommend that you gain about 1 pound a week during your last 6 months of pre gnancy, for a total weight gain of 25 to 35 pounds. If you are underweight, you will need to gain more weight (about 28 to 40 pounds). If you are overweight, you may not need to gain as much weight (about 15 to 25 pounds ). If you are gaining weight too fast, use common sense. Exercise every day, and limit s weets, fast foods, and fats. Choose lean meats, fruits, and vegetables. If you are having twins or more, your doctor may refer you to a dietitian. Where can you learn more? To learn more about "Weeks 14 to 18 of Your : Care Instructions", log into your My Chart account at [email or web address]. You can enter I453 in the "Health [facility]" [facility] box. Not on [facility]? Review the MyChart section of your After Visit Summary for directions on otto rodriguez to sign up. Current as of: June 05, 2018 Content Version: [id number] [employer]. Care instructions adapted under license by [facility]. If you have questions about a medical condition or this instr uction, always ask your healthcare professional. [employer] disclaims any barbara anty or liability for your use of this information. documented in this encounter Progress Notes Ama Rahman MD,S - 09/15/2019 9:15 AM PSTS/No VB/LOF/UCs. Feeling much better - B6 helps a lot and eats small meals every 2hrs. Had light brown spotting after intercourse once, so was worried but called and was reassure d. O/BP 114/64 | Wt 58.1 kg (128 lb) | BMI 20.82 kg/m | BSA 1.64 m Gen - NAD Unable to hear FHT with doppler so limited abdominal US performed: FHT - 146 A/P/IUP @ 15w 1d doing well. c/b tobacco use and FOB is a PKU carrier. -Labs - was to have SIS #2 today, but has decided against any genetic testing except the PK U carrier testing, so declines all other screening. -PKU screening results pending -Tobacco use - cravings gone, rare puffs off of 's cigarette - he's trying to quit t oo. -Anatomy US at 20wks -RTC 1 month Ama Rahman MD,S Janessa Mera MA - 09/15/2019 9:15 AM PSTPt is here for her OBR and is not sure if she would like to do t he second part of her SIS due to just wanting to get PKU testing only . Pt has no further qu estions or concerns. JANESSA BRITO MA documented in this encounter Plan of Treatment +--------+ + + + + | Date | Type | Specialty | Care Team | Description | +--------+ + + + + | 03/08/ | | Obstetrics & | Ama Rahman | | | 2019 | | Gynecology | MD Vickie,S [address] | | | | | | [place], | | | | | | [place] [address] | | | | | | [phone] | | | | | | | | +--------+ + + + + documented as of this encounter Visit Diagnoses + + | Diagnosis | + + | Supervision of low-risk , first trimester | + + | Encounter of female for testing for genetic disease carrier status for procreative | | management Testing of female for genetic disease carrier status | + + | Family history of genetic disease carrier | + + documented in this encounter
--- OUTSIDE RECORDS SUMMARY | ~2020-03-06 | XMS | Encounter Summary ---
Demographics + + + | Address | [address] | | | [place] [address] | + + + | Home Phone | | + + + | Preferred Language | Unknown | + + + | Marital Status | Single | + + + | Yazdanism Affiliation | Unknown | + + + [...] Team Providers + +------+ + | Care Batter Mixer Name | Role | Phone | + +------+ + | No Pcp Per Patient | PCP | Unavailable | + +------+ + Encounter Details +--------+ + + + + | Date | Type | Department | Care Team | Description | +--------+ + + + + | 08/18/ | Document-Sc | Laboratory at | Ita Glasgow, | | | 2019 | anned | [facility] | [address], | | | | | [place] [address] [place], [place] | | | | | [place], [place] | [address] | | | | | [address] | [phone] | | | | | [phone] | | | +--------+ + + + [...] 2020 | | Gynecology | MD Vickie,S [address] | | | | | | [place], | | | | | | [place] [address] | | | | | | [phone] | | | | | | | | +--------+ + + + + documented as of this encounter Visit Diagnoses Not on filedocumented in this encounter"
--- OUTSIDE RECORDS SUMMARY | ~2020-03-06 | XMS | Encounter Summary ---
Demographics + + + | Address | [address] | | | [place] [address] | + + + | Home Phone | | + + + | Preferred Language | Unknown | + + + | Marital Status | Single | + + + | Synagogue Affiliation | Unknown | + + + | Race | White | + + + | Ethnic Group | Not or | + + + Author + + + | Author | [facility] | + + + | Organization | [facility] | + + + | [...] Team Providers + +------+ + | Care Hand Paint Mixer Name | Role | Phone | + +------+ + | No Pcp Per Patient | PCP | Unavailable | + +------+ + Reason for Visit + + + | Reason | Comments | + + + | care | 3rd Tri RN | + + + Encounter Details +--------+ + + + + | Date | Type | Department | Care Team | Description | +--------+ + + + + | 02/15/ | | [facility] | | care (3rd | | 2019 | [facility] | | Tri RN) | | | | E | | | | | | [address] [place], [place] | | | | | | [address] | | | | | | [phone] | | | +--------+ + + + [...] of this encounter Patient Instructions Patient Instructions Leonor Gomez RN - 02/16/2020 9:00 AM PDTCongratulations! You are h eading into an exciting adventure. You can make your entry into parenthood a little less alena tic by planning now and gathering some of the items you will need. You will be too busy (and probably too tired) to do much shopping after the baby arrives. These tips will help you get started. Some items you may need to buy, but do not be shy abo ut taking donations of clothes and other items from family and friends. Getting an early sta rt can allow you to stock up over time, which might be easier on your wallet. Follow-up care is a pena part of your treatment and safety. Be sure to make and go to all ap pointments, and call your doctor if you are having problems. What do you need to have at home? Freeze meals ahead Try to cook and freeze meals in the weeks before the baby comes. Family and friends may be able to help cook meals. You may not have the time or the energy to cook in the first wee ks after the baby arrives. Baby furniture and car seat Make sure all the baby gear you buy meets safety standards set by the U.S. Consumer Prod uct Safety Commission. Although most new items will likely meet these standards, older and u sed items may not. Equipment that has been used before may not be safe. ? Cribs should have less than 2.4 inches of space between the slats. Lower the mattress as your baby grows. Your baby may try to climb out of the crib if the mattress is not lowered. ? Baby walkers should not be used, according to recommendations from the [place] [employer]. ? Playpens should have spaces in the mesh material that are no greater than -inch across. Wood slats should be less than 2.4 inches apart. Look for a playpen or travel crib that has top rails that lock into position. This may prevent the rail from collapsing. ? Stroller wheels should be in a locked position before you put your baby in the stroller. Use the straps to secure your baby so that your baby cannot lean out as he or she gets more mobile. Fasten any toys or bumpers so that they do not fall on your baby. Remove these items as soon as your infant can sit or get up on all fours. Make sure releases and hinges are ou t of your baby's reach, especially if the stroller can fold. ? High chairs should have a wide, stable base. Do not use booster seats that attach to the table. Always make sure the high chair is locked in the upright position before use. Use the safety straps, and stay with your baby at all times while he or she is in the high chair. ? Changing tables should have a railing on all sides that is 2 inches high. Try to use a sl ightly indented changing pad. Always use the safety strap, and keep one hand on your baby. H ave diapers and other items handy, but keep them out of your baby's reach. (If you do not licona ve a changing table, you can change your baby on a towel on the floor.) Baby care items Start stocking up on disposable diapers (unless you plan to use cloth diapers) and wipes . If you want, you can buy a few packages of diapers, which come with a cutout in th e front so the diaper does not touch the baby's umbilical cord stump. You also can buy regul ar diapers and roll down the front. You may get some baby clothes from family and friends at baby showers and after the baby arrives. Ask for (or buy) a few basics to get you started. Get several sleep sacks or night gowns, T-shirts that snap at the crotch (called "onesies"), small blankets to wrap the baby in (called receiving blankets), and one-piece outfits that snap or zip down one leg. This is so that you do not have to take off all the baby's clothes to change a diaper. Socks or waldrop ties are also a good idea to keep your baby's feet warm. Get a cotton cap or two. Newborns a lso need their heads covered to stay warm. Put together a kit of baby care items. Include diaper rash cream, baby nail clippers, a nasal bulb syringe (to help clear a stuffy nose), and baby wash, which also can be used as s hampoo. If you plan to breastfeed, buy a couple of nursing bras. You can wear one while the othe r one is in the wash. Also, get a nipple cream that contains lanolin to prevent cracked or s ore nipples. Some women also like to put nursing pads in their bras to prevent breast-milk f rom leaking onto their clothes. Car Seats Automobile accidents are the leading cause of in people ages 1-45. You will need an approved car seat to take your baby home from the hospital. Let us know if you need help ob taining a car seat for your . Arrange to have your car seat in your hospital room on the day of discharge ..we will help tailor the fit to your baby. If you can not afford a new car seat please contact . If you can not afford a new car seat please contact the local [facility] office (even if you are not a [facility] customer). You may qualify f or a reduced fee or free car seat. Get a new car seat and put your baby in it every time you drive with him or her. Getting a new seat is the best way to make sure that a seat meets safety standards and has not already been used in an accident. ? Make sure the car seat is properly installed. See the maker's instructions as well as you car manual. If you are not sure how to put in the car seat, have your car seat checked at [facility]. If you re uncertain about fitting your baby s car seat into you r car, have a nurse call one of our local CPSTs (Child Passenger Seat Audio Visual Equipment Rental Clerk) to assist with the fit of the seat. ? Make sure the car seat is the right fit for your child's current age, weight, or height. For safety, it is very important to have a car seat that fits your child and it is safest fo r the seat to face the rear until your child is at least age 2 (to abide with the current [place] [facility] car seat law). However, extended rear facing is recommended by the AAP ([place] [employer]s). ? Put the car seat in a rear seat, not in the front passenger seat. This will keep your chi ld from getting hurt by the air bag in an accident. If you have rear side air bags, put your child's car seat in the middle seat. For more information about car seats, call the [employer] on at , check their website to find a local Car Seat technician telecommunication systems or you can go to our local [facility] [employer] to have an officer check your car seat. Family Medical Leave Act (FMLA) / Disability Most employers are required to allow a 12 week leave for caring for a new baby without risk of losing your job or health insurance. This is commonly unpaid unless you have saved up v acation and sick time. Your company can require you to have been working there for 12 month s before you are eligible. Some folks also have short-term disability plans that can help pr ovide a partial income for part of their leave. Both of these plans require paperwork with a part for you to complete and a part for us to complete. Make sure you get these forms to us soon so there is enough time for our staff to complete your paperwork and get it turned it. We ask you to allow a 2 week turn-around diana diaz to get this done. It's common to have concerns about what might be a problem during . Although most women don't have any serious problems, it's important to know when to call your doc tor if you have certain symptoms or signs of labor. These are general suggestions. Your doctor may give you some more information about when to call. When to call your doctor (after 20 weeks) Call 911 anytime you think you may need emergency care. For example, call if: You have severe vaginal bleeding. You have sudden, severe pain in your belly. You passed out (lost consciousness). You have a seizure. You see or feel the umbilical cord. You think you are about to deliver your baby and can't make it safely to the hospital. Call your doctor now or seek immediate medical care if: You have vaginal bleeding. You have belly pain. You have a fever. You have symptoms of preeclampsia, such as: ? Sudden swelling of your face, hands, or feet. ? New vision problems (such as dimness or blurring). ? A severe headache. You have a sudden release of fluid from your vagina. (You think your water broke.) You think that you may be in labor. This means that you've had at least 4 contractions w ithin 20 minutes or at least 8 contractions in an hour. You notice that your baby has stopped moving or is moving much less than normal. You have symptoms of a urinary tract infection. These may include: ? Pain or burning when you urinate. ? A frequent need to urinate without being able to pass much urine. ? Pain in the flank, which is just below the rib cage and above the waist on either side of the back. ? Blood in your urine. Watch closely for changes in your health, and be sure to contact your doctor if: You have vaginal discharge that smells bad. You have skin changes, such as: ? A rash. ? Itching. ? Yellow color to your skin. You have other concerns about your . If you have labor signs at 37 weeks or more If you have signs of labor at 37 weeks or more, your doctor may tell you to call when your labor becomes more active. Symptoms of active labor include: Contractions that are regular. Contractions that are less than 5 minutes apart. Contractions that are hard to talk through. Follow-up care is a pena part of your treatment and safety. Be sure to make and go to all ap pointments, and call your doctor if you are having problems. It's also a good idea to know y our test results and keep a list of the medicines you take. Preparing for Before your baby is born, plan ahead. Learn all you can about . This helps taryn e easier. Early in your , talk to your doctor or heel lift gouger about . Learn the basics before your baby is born. The staff at hospitals and birthing centers c an help you find a civil engineering specialist. This person is often a nurse who has been trained t o teach and advise women about . Or you can take a class. Plan ahead for times when you will need help after your baby is born. Many women get hel p from friends and family. Some join a support group to talk to other moms who breastfeed. Buy the equipment you'll need. Examples are breast pads, nipple cream, extra pillows, an d nursing bras. A breast pump order should be sent in by your doctor's office but some insur ances have you contact them to request an order be sent to a specialty Medical Supply Store. Ask your foot cutter nursing staff about this. Getting help from your hospital or birthing center It's important to have support from the doctors, nurses, and hospital staff who care for yo u and your baby. After you leave the hospital you can contact [facility] or [facility] with questions about or any issues with your breasts. Your first feeding It's best to start within 1 hour of . In the first days after , your breasts make a thick, yellow liquid called colostrum. T his liquid gives your baby nutrients and antibodies against infection. It is all that babies need at first. Your breasts will fill with milk a few days after the . For each feeding, you go through these basic steps: Get ready for the feeding. Be calm and relaxed, and try not to be distracted. Get some w ater or juice for yourself. Use two or three pillows to help support your baby while he or s he is nursing. Find a position that is comfortable for you and your baby. Examples are e cradle and the football positions. Make sure the baby's head and chest are lined up straig ht and facing your breast. It's best to switch which breast you start with each time. Provi de a complete feeding. Let your baby nurse for at least 15 minutes. Be sure to burp your bab y after each breast. Get the baby latched on well. The nursing staff can assist you with this. If your nipp les begin to be very sore in certain areas or you begin to bleed or develop scabs request to see a financial reporting consultant for evaluation. How often to breastfeed Plan to breastfeed your baby on demand rather than setting a strict schedule. For the first few days, be prepared to breastfeed every 1 to 3 hours. That often works out to about 8 to 12 times in a 24-hour period. Wake a sleeping baby to feed, if you need to. If you breastfee d more often, it will help your breasts to produce more milk. After you go home After you're home, don't be afraid to call your doctor, heel lift gouger, or civil engineering specialist wi th questions. You can call [facility] or [facility] OB department for assistance. You can call even if you don't know what's bothering you. They are used to parents of newborns calling. They can help you figure out if there is a problem, and if so, how to fix it. is a learned skill that gets easier over time. You are more likely to succeed if you plan ahead, learn the basic techniques, and know where to get help and support. documented in this encounter Progress Notes Leonor Gomez RN - 02/16/2020 9:00 AM PDTMet with Claudia Garay0010 currently at 37w1d, for anticipatory guidance in the third trimester and . Education discussed and information given: : support resources ? Breast pump given today-see notes in checklist Safety: Car seat, Crib/sleep position Circumcision:Plans, Handout given with up to date providers offering procedure and process for scheduling WIC/Healthy Families/HVN: Yes Hospital Stay: ? Tour of First Impressions/Rooming in ? Routine care for expected after delivery: Vitamin K injection, Erythromycin, [place] bolic screen care: ? visits ? Screening for mood and anxiety disorders ? Mommy Wellness classes Risk Factors Identified: Smoker, discussed good handwashing, second hand smoke, encouraged continuing to decrease. documented in this enc ounter Plan of Treatment +--------+ + + + + | Date | Type | Specialty | Care Team | Description | +--------+ + + + + | 03/08/ | | Obstetrics & | Ama Rahman | | 2019 | | Gynecology | MD Vickie,S [address] | | | | | | [place], | | | | | | [place] [address] | | | | | | [phone] | | | | | | | | +--------+ + + + + documented as of this encounter Visit Diagnoses + + | Diagnosis | + + | Supervision of high risk in third trimester Unspecified high-risk | + + documented in this encounter
--- OUTSIDE RECORDS SUMMARY | ~2020-03-06 | XMS | Encounter Summary ---
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 + + + | PH (URINE) | 8.0 | 5.0 - 8.5 | [facility] | | | | | | A MEDICAL | | | | | | CENTER | | + + + + + + | PROTEIN, | Negative | Negative, Trace | [facility] | | | URINE | | | A MEDICAL | | | | | | CENTER | | + + + + + + | GLUCOSE | Negative | Negative | [facility] | | | (URINE) | | | A MEDICAL | | | | | | CENTER | | + + + + + + | KETONES | Negative | Negative | [facility] | | | | | | A MEDICAL | | | | | | CENTER | | + + + + + + | SPECIFIC | 1.006 | 1.005 - 1.030 | [facility] | | | GRAVITY | | | A MEDICAL | | | | | | CENTER | | + + + + + + | BILIRUBIN | Negative | Negative | [facility] | | | | | | A MEDICAL | | | | | | CENTER | | + + + + + + | BLOOD | Negative | Negative | [facility] | | | | | | A MEDICAL | | | | | | CENTER | | + + + + + + | NITRITES | Negative | Negative | [facility] | | | | | | A MEDICAL | | | | | | CENTER | | + + + + + + | LEUKOCYTE | Negative | Negative | [facility] | | | ESTERASE | | | A MEDICAL | | | | | | CENTER | | + + + + + + | UROBILINOGE | Negative | Negative, 1.0 | [facility] | | | N | | mg/dL | A MEDICAL | | | | | | CENTER | | + + + + + + | SOURCE | | | [facility] | | | (URINALYSIS | | | A MEDICAL | | | ) | | | CENTER | | + + + + + + + + | Specimen | + + | Urine | + + + + + + + | Performing | Address | City/State/Zipcode | Phone Number | | Organization | | | | + + + + + | [facility] | And | [place], [place] | [phone] | | [facility] | [address] | [address] | | + + + + + CULTURE, URINE (07/28/2019 10:25 AM PDT) + + + + + + | Component | Value | Ref Range | Performed | Pathologist | | | | | At | Signature | + + + + + + | CULTURE | <10,000 cfu/mL Mixed | | [facility] | | | RESULT | normal urogenital/skin | | A MEDICAL | | | URINE | mark, probable | | CENTER | | | | contaminant(s) | | | | + + + + + + + + | Specimen | + + | Urine - Urine | | (substance) | + + + + + + + | Performing | Address | City/State/Zipcode | Phone Number | | Organization | | | | + + + + + | [facility] | And | [place], [place] | [phone] | | MEDICAL CENTER | [address] | [address] | | + + + + + VARICELLA ZOSTER IGG, SERUM (07/28/2019 10:25 AM PDT) + + + + + + | Component | Value | Ref Range | Performed | Pathologist | | | | | At | Signature | + + + + + + | VARICELLA | <135.00 (L)Comment: | index | [facility] | | | ZOSTER IGG | Index | | [facility] | | | | Interpretation | | - [place] | | | | --------- | | | | | | | | | | | | | | | | | | <135.00 | | | | | | Negative - | | | | | | Antibody not detected | | | | | | 135.00 - 164.99 | | | | | | Equivocal > or = | | | | | | 165.00 Positive | | | | | | - Antibody detected | | | | | | A positive result | | | | | | indicates that the | | | | | | patient has | | | | | | antibody to VZV but does | | | | | | not differentiate | | | | | | between an active or | | | | | | past infection. | | | | | | The clinical diagnosis | | | | | | must be interpreted in | | | | | | conjunction with | | | | | | the clinical signs and | | | | | | symptoms of the | | | | | | patient. This assay | | | | | | reliably measures | | | | | | immunity due to | | | | | | previous infection but | | | | | | may not be | | | | | | sensitive enough to | | | | | | detect antibodies | | | | | | induced by | | | | | | vaccination. Thus, a | | | | | | negative result in a | | | | | | vaccinated | | | | | | individual does not | | | | | | necessarily indicate | | | | | | susceptibility to VZV | | | | | | infection. A more | | | | | | sensitive test for | | | | | | vaccination-induced | | | | | | immunity is Varicella | | | | | | Zoster Virus Antibody | | | | | | Immunity Screen, ACIF. | | | | + + + + + + + + | Specimen | + + | Blood - Blood | | (substance) | + + + + + | Narrative | Performed At | + + + | Test performed at [facility] | [facility] | | [address] [facility] [facility] DIAGNOSTICS - | | [place] [address] | [place] | | Registered Midwife TAB TOOCHINDA,MD | | + + + + + + + + | Performing | Address | City/State/Zipcode | Phone Number | | Organization | | | | + + + + + | [facility] | [address] | [place] [address] | | | - [place] | [address] | | | + + + + + TSH W/REFLEX TO FREE T4(IF ABNORMAL) (07/28/2019 10:25 AM PDT) + +-------+ + + + | Component | Value | Ref Range | Performed | Pathologist | | | | | At | Signature | + +-------+ + + + | TSH | 0.91 | 0.34 - 5.60 | [facility] | | | | | uIU/mL | A MEDICAL | | | | | | CENTER | | + +-------+ + + + + + | Specimen | + + | Blood - Blood | | (substance) | + + + + + + + | Performing | Address | City/State/Zipcode | Phone Number | | Organization | | | | + + + + + | [facility] | And [place] | [place] | [phone] | | MEDICAL CENTER | [address] | [address] | | + + + + + RUBELLA IGG AB, SERUM (07/28/2019 10:25 AM PDT) + +-------+ + + + | Component | Value | Ref Range | Performed | Pathologist | | | | | At | Signature | + +-------+ + + + | RUBELLA IGG | 105 | IU/mL | [facility] | | | AB | | | A MEDICAL | | | | | | CENTER | | + +-------+ + + + + + | Specimen | + + | Blood - Blood | | (substance) | + + + + + | Narrative | Performed At | + + + | Interpretation: <10 IU/mL Non-Reactive/Non-Immune | [facility] | | >=10-<15IU/mL EQUIVOCAL >=15 IU/mL Reactive Immune | [facility] | | The following results were obtained with the Elecsys Rubella IgG | | | assay. Results from assays of other manufacturers cannot be used | | | interchangeably. | | + + + + + + + + | Performing | Address | City/State/Zipcode | Phone Number | | Organization | | | | + + + + + | [facility] | And | [place] | [phone] | | [facility] | [address] | [address] | | + + + + + HIV-1,2 AB/HIV-1 P24 AG SCREEN (07/28/2019 10:25 AM PDT) + + + + + + | Component | Value | Ref Range | Performed | Pathologist | | | | | At | Signature | + + + + + + | HIV-1,2 | NON-REACTIVEComment: | NON-REACTIVE | [facility] | | | AB/HIV-1 | HIV-1 antigen and | | [facility]ICS | | | P24 AG | HIV-1/HIV-2 antibodies | | - [place] | | | SCREEN | were notdetected. There | | | | | | is no laboratory | | | | | | evidence of | | | | | | HIVinfection. PLEASE | | | | | | NOTE: This information | | | | | | has been disclosed toyou | | | | | | from records whose | | | | | | confidentiality may | | | | | | beprotected by state | | | | | | law. If your state | | | | | | requires suchprotection, | | | | | | then the state law | | | | | | prohibits you frommaking | | | | | | any further disclosure | | | | | | of the | | | | | | informationwithout the | | | | | | specific written consent | | | | | | of the personto whom it | | | | | | pertains, or as | | | | | | otherwise permitted by | | | | | | law.A general | | | | | | authorization for the | | | | | | release of medical | | | | | | orother information is | | | | | | NOT sufficient for this | | | | | | purpose. For | | | | | | additional information | | | | | | please refer | | | | | | tohttp://education.[employer] | | | | | | [employer]Pub[employer]/faq/FAQ1 | | | | | | 06(This link is being | | | | | | provided for | | | | | | informational/educationa | | | | | | l purposes only.) The | | | | | | performance of this | | | | | | assay has not been | | | | | | clinicallyvalidated in | | | | | | patients less than 2 | | | | | | years old. | | | | + + + + + + + + | Specimen | + + | Blood - Blood | | (substance) | + + + + + + + | Performing | Address | City/State/Zipcode | Phone Number | | Organization | | | | + + + + + | [facility] | [address] | [place] [address] | | | - [place] | [address] | | | + + + + + HEPATITIS B SURFACE ANTIGEN (07/28/2019 10:25 AM PDT) + + + + + + | Component | Value | Ref Range | Performed | Pathologist | | | | | At | Signature | + + + + + + | HEP B | Non-reactive | Non-reactive | [facility] | | | SURFACE | | | A MEDICAL | | | ANTIGEN | | | CENTER | | + + + + + + + + | Specimen | + + | Blood - Blood | | (substance) | + + + + + | Narrative | Performed At | + + + | Results obtained with the Elecsys HBsAg immunoassay may not be | [facility] | | used interchangeably with the values obtained with different [facility] | | manufacturers' assay methods. | | + + + + + + + + | Performing | Address | City/State/Zipcode | Phone Number | | Organization | | | | + + + + + | [facility] | [address] | [place], [place] | [phone] | | [facility] | [facility] | [address] | | + + + + + RPR (DIAGNOSIS) W/REFLEX TO TITER AND CONFIRMATORY TESTING (07/28/2019 10:24 AM PDT) + + + + + + | Component | Value | Ref Range | Performed | Pathologist | | | | | At | Signature | + + + + + + | RPR (DX) | NON-REACTIVE | NON-REACTIVE | [facility] | | | W/REFLEX TO | | | DIAGNOSTICS | | | TITER & | | | - [place] | | | CONFIRM | | | | | + + + + + + + + | Specimen | + + | Blood - Blood | | (substance) | + + + + + + + | Performing | Address | City/State/Zipcode | Phone Number | | Organization | | | | + + + + + | [facility] | [address] [facility] | [place] [address] | | | - [place] | [address] | | | + + + + + documented in this encounter Visit Diagnoses + + | Diagnosis | + + | Encounter for supervision of normal in multigravida in first trimester - | | Primary | + + | Tattoo Other dyschromia | + + | Supervision of low-risk , first trimester | + + | Tobacco use affecting , antepartum | + + documented in this encounter
--- OUTSIDE RECORDS SUMMARY | ~2020-03-06 | XMS | Encounter Summary ---
Demographics + + + | Address | [address] | | | [place] [address] | + + + | Home Phone | | + + + | Preferred Language | Unknown | + + + | Marital Status | Single | + + + | Jew Affiliation | Unknown | + + + | Race | White | + + + | Ethnic Group | Not or | + + + Author + + + | Author | [facility] | + + + | Organization | [facility] | + + + [...] Team Providers + +------+ + | Care High Rigger Name | Role | Phone | + +------+ + | No Pcp Per Patient | PCP | Unavailable | + +------+ + Reason for Visit + + + | Reason | Comments | + + + | | contractions | + + + Encounter Details +--------+ + + + + | Date | Type | Department | Care Team | Description | +--------+ + + + + | 03/02/ | Telephone | [place] | Ama Rahman | | | 2020 | | [facility] [address] | MD Vickie,S [address] | (contractions) | | | | [address] | [place], | | | | | [address] [place], [place] | [place] [address] | | | | | [address] | [phone] | | | | | [phone] | | | +--------+ + + + [...] E | | | | | | [place], | | | | | | [place] [address] | | | | | | [phone] | | | | | | | | +--------+ + + + + documented as of this encounter Visit Diagnoses Not on filedocumented in this encounter"
--- OUTSIDE RECORDS SUMMARY | ~2020-03-06 | XMS | Encounter Summary ---
Demographics + + + | Address | [address] | | | [place] [address] | + + + | Home Phone | | + + + | Preferred Language | Unknown | + + + | Marital Status | Single | + + + | Yarsanism Affiliation | Unknown | + + + [...] Providers + +------+ + | Care Supervisor Dry Paste Name | Role | Phone | + +------+ + | No Pcp Per Patient | PCP | Unavailable | + +------+ + Encounter Details +--------+--------+ + + + | Date | Type | Department | Care Team | Description | +--------+--------+ + + + | 01/11/ | Travel [...] in contact | No / Unsure | 01/12/2020 8:38 AM | | with someone who was [...] 2020 | | Gynecology | MD Vickie,S [address] | | | | | | [place], | | | | | | [place] [address] | | | | | | [phone] | | | | | | | | +--------+ + + + + documented as of this encounter Visit Diagnoses Not on filedocumented in this encounter"
--- OUTSIDE RECORDS SUMMARY | ~2020-03-06 | XMS | Encounter Summary ---
Demographics + + + | Address | [address] | | | [place] [address] | + + + | Home Phone | | + + + | Preferred Language | Unknown | + + + | Marital Status | Single | + + + | Christianity Affiliation | Unknown | + + + | Race | White | + + + | Ethnic Group | Not or | + + + Author + + + | Author | [facility] | + + + | Organization | [facility] | + + + [...] Team Providers + +------+ + | Care Package Drier Name | Role | Phone | + +------+ + | No Pcp Per Patient | PCP | Unavailable | + +------+ + Reason for Referral Transfer to Another Service Area (Routine) +--------+--------+ [...] | | | | | for | MD Lizabeth | [address] [address] | | | | | supervision | [address] | | | | | of normal | Luis | Physician's | | | | | in | [address], | | | | | | [place] | 4th floor | | | | | multigravida | [address] | [place], [place] | | | | | in first | Phone: | [phone] | | | | | trimester | [phone] | Phone: | | | | | Procedures | Fax: | [phone] | | | | | CONSULT TO | [phone] | Fax: | | | | | PERINATOLOGY | | [phone] | +--------+--------+ + + + + Reason for Visit + + + | Reason | Comments | + + + | Genetic test | | + + + Encounter Details +--------+ + + + + | Date | Type | Department | Care Team | Description | +--------+ + + + + | 08/05/ | Telephone | [place] | Philippe, | Genetic test | | 2019 | | [facility] [address] | MD Lizabeth [address] | | | | | E | | | | | | [place], [place] | [place], [place] | | | | | [address] | [address] | | | | | [phone] | [phone] | | | | | | | [...] 2020 | | Gynecology | MD Vickie,S [address] | | | | | | [place], | | | | | | [place] [address] | | | | | | [phone] | | | | | | | | +--------+ + + + + documented as of this encounter Visit Diagnoses + + | Diagnosis | + + | Encounter for supervision of normal in multigravida in first trimester - | | Primary | + + documented in this encounter"
--- OUTSIDE RECORDS SUMMARY | ~2020-03-06 | XMS | Encounter Summary ---
Demographics + + + | Address | [address] | | | [place] [address] | + + + | Home Phone | | + + + | Preferred Language | Unknown | + + + | Marital Status | Single | + + + | Advent Affiliation | Unknown | + + + | Race | White | + + + | Ethnic Group | Not or | + + + Author + + + | Author | [facility] | + + + | Organization | [facility] | + [...] Team Providers + +------+ + | Care Tamale Maker Name | Role | Phone | + +------+ + | No Pcp Per Patient | PCP | Unavailable | + +------+ + Reason for Visit + + + | Reason | Comments | + + + | Did Not Attend | obr on 11/12 | | Outpatient | | | Appointment | | + + + Encounter Details +--------+ + + + + | Date | Type | Department | Care Team | Description | +--------+ + + + + | 11/12/ | Telephone | [place] | Ama Rahman | Did Not Attend | | 2019 | | [facility] [address] | MD Vickie,S [address] | Outpatient | | | | [address] [facility] | [place], | Appointment (obr on | | | | [address] [place], [place] | [place] [address] | 11/12) | | | | [address] | [phone] | | | | | [phone] | | | +--------+ + + + [...] 2020 | | Gynecology | MD Vickie,S [address] | | | | | | [place], | | | | | | [place] [address] | | | | | | [phone] | | | | | | | | +--------+ + + + + documented as of this encounter Visit Diagnoses Not on filedocumented in this encounter"
--- OUTSIDE RECORDS SUMMARY | ~2020-03-06 | XMS | Encounter Summary ---
Demographics + + + | Address | [address] | | | [place] [address] | + + + | Home Phone [...] Author + + + | Author | [facility] | + + + | Organization | [facility] | + + + [...] Team Providers + +------+ + | Care Small Craft Operator Name | Role | Phone | + +------+ + | No Pcp Per Patient | PCP | Unavailable | + +------+ + Reason for Visit + + + | Reason | Comments | + + + | Blood draw | | + + + | Obstetric US Scan | | + + + | care | | + + + Encounter Details +--------+ + + + + | Date | Type | Department | Care Team | Description | +--------+ + + + + | 12/17/ | | Radha Mancini | Ama Rahman | Blood draw; | | 2019 | | [facility] [address] | MD Vickie,S [address] | Obstetric US Scan; | | | | [address] | [place], | care | | | | [address] [place], [place] | [place] [address] | | | | | [address] | [phone] | | | | | [phone] | | | +--------+ + + + [...] + | Blood Pressure | 102/60 | 12/18/2019 9:19 AM | | | | | PDT [...] + + + + | Weight | 64.1 kg (141 lb 6.4 | 12/18/2019 9:19 AM | | | | oz) | PDT | | + + + + + | Height | - | - | | + + + + + | Body Mass Index | 23 | 07/28/2019 9:25 AM | | | | | PDT | | + + + + + documented in this encounter Patient Instructions Patient Instructions Lyn Diaz MA - 12/18/2019 9:15 AM PDTPrenatal Visit - Week Rh Negative If you re Rh Negative, you should have received an injection of Rh antibodies (RhoGAM) to day. If you did not get that injection and you know that you re Rh Negative, call us now. Preeclampsia By now, we hope you ve benefited from the care you ve been getting. Although you re getting closer, we re still keeping watch on you and your baby. One of the last things we re doing is watching you for signs of Preeclampsia (jean). It s the main reason we ve been taking your blood pressure and dipping your urine. Preeclampsia is a disorder of associated with high blood pressure and abnormal ch anges in your kidney, liver and blood vessels. With preeclampsia, we re pretty sure that the placenta is the source of the problem. Most women who get preeclampsia will get only a mild form of it. However, some women get a severe form of it. In rare cases, pre-eclampsia leads to eclampsia. Eclampsia is the most severe consequence of this disorder, resulting in seizure and problems with your liver, kid neys, and blood clotting. If you are diagnosed with preeclampsia, we will recommend having your baby a few weeks befo re your due date. Most of the time, we can induce your labor successfully, if that is the c ase. Swelling in Swelling. Most women will note some swelling to some degree in some part of their body at some point in their . Word on the street (and on the internet chat boards ) is that swelling is preeclampsia. Maybe; probably not. Swelling in is usually normal. Swelling, or as we say, edema, is the movement of water from your blood stream into other parts of the body ..mostly, the skin. Swelling o f the limbs (ankle, feet, hands) is the most common. If you re coming in for all your visits, we ll be able to tell you if your swe lling is normal (it probably is) or not. Nutrition This visit s nutritional kavya is this- it s not too late to make improvements in your nutritional habits. And certainly not too late for such a change to benefit both you and t he baby. Your baby is growing rapidly now. For most women, additional calories are needed. How many calories does a woman need during ? ..it depends on the woman. Women of small or average size need around 300 additional calories (above an average non- diet). Your Baby s Movements Your perception of your baby s movement ( movement ) is a good indicator that y our baby is doing OK. When you feel your baby s movement, it s a pretty good indication that the placenta is working well and your baby is getting all that it needs to grow and th rive. The lack of movement is a less reliable indicator of poor health. Most of the time w hen a mother does not feel her baby movement everything is still OK. As your cont inues your baby s sleep cycles last a little longer. How much movement is enough? Good question ..hard to answer. One method that was actually studied is Count to Ten . Start counting your baby s movements in the morni ng when you get up. When you reach ten movements you may stop counting for the day (many wo men feel ten movements before lunch). If you get to dinner time and have not counted ten mo vements, eat something and lie down on your left side in a quiet place ..you should feel 3 movements in 30 minutes. If not, give it another 30 minutes. If you don t feel 3 moveme nts in that 30 minutes, call us. Remember, the lack of movement is NOT a good indication of a problem. Chances are go od that your baby is fine. But, call us, and we ll make sure. Protecting your baby - the Tdap shot Not so long ago (and still today in many countries), many babies never made it to their fir st or second birthdays because of diphtheria and pertussis (Whooping cough). And although w e rarely hear about it today, because of the success of childhood immunizations, these disea ses are still with us. Our country s experts at the [employer] of [employer] and the [place] [employer] are concerned about the surprising number of babies that still suffer from these di seases. Your providers here at [facility] [place] support the effort to immunize mothers and fathers (and any other family members that will spend time close to your baby) against diphtheria and pertussis. The new vaccine, the Tdap, also gives you your tetanus booster in the same injection. If you haven t had yours yet, we can give it to you at your next appointment. Weeks 26 to 30 of Your : Care Instructions Your Care Instructions You are now in your last trimester of . Your baby is growing rapidly. And you'll p robably feel your baby moving around more often. Your doctor may ask you to count your baby' s kicks. Your back may ache as your body gets used to your baby's size and length. If you haven't already had the Tdap shot during this , talk to your doctor about g etting it. It will help protect your against pertussis infection. During this time, it's important to take care of yourself and pay attention to what your delmer dy needs. If you feel sexual, explore ways to be close with your partner that match your com fort and desire. Use the tips provided in this care sheet to find ways to be sexual in your own way. Follow-up care is a pena part of your treatment and safety. Be sure to make and go to all ap pointments, and call your doctor if you are having problems. It's also a good idea to know y our test results and keep a list of the medicines you take. How can you care for yourself at home? Take it easy at work Take frequent breaks. If possible, stop working when you are tired, and rest during your lunch hour. Take bathroom breaks every 2 hours. Change positions often. If you sit for long periods, stand up and walk around. When you stand for a long time, keep one foot on a low stool with your knee bent. After standing a lot, sit with your feet up. Avoid fumes, chemicals, and tobacco smoke. Be sexual in your own way Having sex during is okay, unless your doctor tells you not to. You may be very interested in sex, or you may have no interest at all. Your growing belly can make it hard to find a good position during intercourse. Experime nt and explore. You may get cramps in your uterus when your partner touches your breasts. A back rub may relieve the backache or cramps that sometimes follow orgasm. Learn about labor Watch for signs of labor. You may be going into labor if: ? You have menstrual-like cramps, with or without nausea. ? You have about 6 or more contractions in 1 hour, even after you have had a glass of water and are resting. ? You have a low, dull backache that does not go away when you change your position. ? You have pain or pressure in your pelvis that comes and goes in a pattern. ? You have intestinal cramping or flu-like symptoms, with or without diarrhea. ? You notice an increase or change in your vaginal discharge. Discharge may be heavy, mucus -like, watery, or streaked with blood. ? Your water breaks. If you think you have labor: ? Drink 2 or 3 glasses of water or juice. Not drinking enough fluids can cause contractions . ? Stop what you are doing, and empty your bladder. Then lie down on your left side for at l east 1 hour. ? While lying on your side, find your breast bone. Put your fingers in the soft spot just b elow it. Move your fingers down toward your belly button to find the top of your uterus. Trinh ck to see if it is tight. ? Contractions can be weak or strong. Record your contractions for an hour. Time a contract ion from the start of one contraction to the start of the next one. ? Single or several strong contractions without a pattern are called Lonny-Saini contract ions. They are practice contractions but not the start of labor. They often stop if you justice ge what you are doing. ? Call your doctor if you have regular contractions. Where can you learn more? To learn more about "Weeks 26 to 30 of Your : Care Instructions", log into your My Chart account at [email or web address]. You can enter S999 in the "Health Library" [facility] box. Not on [employer]? Review the [employer] section of your After Visit Summary for directions on ho w to sign up. Current as of: June 05, 2018 Content Version: [id number] Sara Campbell. Care instructions adapted under license by [facility] [place]. If you have questions about a medical condition or this instr uction, always ask your healthcare professional. Sara Campbell disclaims any barbara anty or liability for your use of this information. documented in this encounter Progress Notes Janessa Brito MA - 12/18/2019 9:15 AM PDTBlood drawn per provider orders with two patient identifiers. Site: Left Time: 10:11 AM Venipuncture performed without difficulty. Patient tolerated the procedure well. Janessa Brito CMA Ama Magana MD,M HS - 12/18/2019 9:15 AM PDTS/No VB/LOF/UCs. +FM. O/BP 102/60 | Wt 64.1 kg (141 lb 6.4 oz) | BMI 23.00 kg/m | BSA 1.72 m See flowsheet Gen - NAD, non-toxic Completion anatomy US A/P/IUP @ 28w 4d doing well. -Labs - gtt and cbc today -declined tdap -Anatomy US completion today - results pending from [facility] -smokes 2-6cigs/day - goal is to stop before delivery! -RTC 2w Ama Rahman MD,[facility] yn Diaz MA - 12/18/2019 9:15 AM PDT1 hr GTT, and CBC, tdap today. Finished at 0916 Second trimester u/s FOLLOW UP, to be read at [facility]. Lyn Diaz MA documented in this enco unter Plan of Treatment +--------+ + + + + | Date | Type | Specialty | Care Team | Description | +--------+ + + + + | 03/08/ | | Obstetrics & | Ama Rahman | | | 2019 | | Gynecology | MD Vickie,S [address] | | | | | | [place], | | | | | | [place] [address] | | | | | | [phone] | | | | | | | | +--------+ + + + + documented as of this encounter Procedures + +--------+ + + + | Procedure Name | Priori | Date/Time | Associated Diagnosis | Comments | | | ty | | | | + +--------+ + + + | KS COLLECTION VENOUS | Routin | 12/18/2019 | [...] | CLINIC OB FOLLOW | Routin | 12/18/2019 | Supervision of | Results for this | | UP PER FETUS - | e | 9:31 AM | high risk | procedure are in the | | EXTERNAL READ | | PDT | in third trimester | results section. | + +--------+ + + + documented in this encounter Results CBC ONLY (12/18/2019 10:10 AM PDT) + [...] 228 | 150 - 400 K/cu | [facility] | | | COUNT | | mm | A MEDICAL | | | | | | CENTER | | + + + + + + | MPV | 10.4 | 7.5 - 11.2 fL | [facility] | | | | | | A MEDICAL | | | | | | CENTER | | + + + + + + + + | Specimen | + + | Blood - Blood | | (substance) | + + + + + | Narrative | Performed At | + + + | No reflex rules apply to this test. | [facility] | | | MEDICAL CENTER | + + + + + + + + | Performing | Address | City/State/Zipcode | Phone Number | | Organization | | | | + + + + + | [facility] | And | [place], [place] | [phone] | | MEDICAL CENTER | Stre[address] | [address] | | + + + + + GLUCOSE TOLERANCE TEST, 1 HOUR (12/18/2019 10:10 AM PDT) + +-------+ + + + | Component | Value | Ref Range | Performed | Pathologist | | | | | At | Signature | + +-------+ + + + | 1 HOUR | 112 | <130 mg/dL | [facility] | | | GLUCOSE - | [...] for the diagnosis of gestational diabetes | [facility] | | only. | MEDICAL CENTER | + + + + + + + + | Performing | Address | City/State/Zipcode | Phone Number | | Organization | | | | + + + + + | [facility] | And | [place], [place] | [phone] | | [facility] | [facility] | [address] | | + + + + + CLINIC OB FOLLOW UP PER FETUS - EXTERNAL READ (12/18/2019 9:31 AM PDT) + + | Specimen | + + | | + + + + + | Narrative | Performed At | + + + | Ultrasound exam performed at [facility] and will | [facility] | | be read/resulted at [facility]. | DEPARTMENT OF | | | RADIOLOGY [...] high-risk | | | + + | Supervision of high risk in second trimester Unspecified high-risk | | | + + documented in this encounter
--- OUTSIDE RECORDS SUMMARY | ~2020-03-06 | XMS | Encounter Summary ---
Demographics + + + | Address | [address] | | | [place] [address] | + + + | Home Phone | | + + + | Preferred Language | Unknown | + + + | Marital Status | Single | + + + | Taoist Affiliation | Unknown | + + + | Race | White | + + + | Ethnic Group | Not or | + + + Author + + + | Author | [facility] | + + + | Organization | [facility] | + + + | [...] Team Providers + +------+ + | Care Vender Name | Role | Phone | + +------+ + | No Pcp Per Patient | PCP | Unavailable | + +------+ + Encounter Details +--------+ + + + + | Date | Type | Department | Care Team | Description | +--------+ + + + + | 12/17/ | Transcribe | Center | Ama Rahman | | | 2020 | Orders | at [facility] [address] | MD Vickie,S [address] | | | [address] | [place], | | | | | Physician's | [place] [address] | | | | | [place], [address] Floor | [phone] | | | | | [place] | | | | | | [address] | | | | | | [phone] | | | +--------+ + + + [...] 2019 | | Gynecology | MD Vickie,[address] | | | | | | [place], | | | | | | [place] [address] | | | | | | [phone] | | | | | | | | +--------+ + + + + documented as of this encounter Results TELEMEDICINE ULTRASOUND (12/18/2019 8:42 AM PDT) + + | Specimen | + + | | + + + + + | Narrative | Performed At | + + + | [facility] | [facility] | | OBSTETRICAL ULTRASOUND REPORT | RADIOLOGY OB US | | | | | Pat. Name: TANISHA LANDRUM Pat. No: [id number] Study | | | Date: 12/18/2019 9:31am , Age: 02 2000, 19 | | | Pregnancies: 2, Para 0010 LMP: 06/01/2019 | | | GA by LMP: 28w4d GA by Last: 28w4d GA by US: 28w5d GA | | | Selected: 28w4d (From Known E) LAUREN: 03/07/2020 | | | Referring MD: Ita Glasgow MD Garbage Collector: Debra Ayon CPT4: | | | 01933 | | | | | | MEASUREMENTS & AGE GROWTH EVALUATION | | | Measurement GA Range Srce %for GA Ratios | | | ----- ---- ------- BPD 7.4 | | | cm 29w4d (27l3k-86s1z) Hadl BPD 70% FL/BPD 0.73 (0.71 - 0.87) HC | | | 27.7 cm 30w2d (14q9p-88k5n) Hadl HC 75% FL/AC 0.23 (0.20 - 0.24) | | | AC 23.7 cm 28w0d (20k8f-57q8a) Hadl AC 38% HC/AC 1.17 (0.99 - | | | 1.18) FL 5.4 cm 28w4d (28b5x-70r4w) Hadl FL 49% CI 0.75 | | | (0.70 - 0.86) GA for sonogram 28w5d (13j5y-49w5k) Weight | | | Estimate: based on [...] | | | ! x ! Cardiac Langford/! ! ! | | | ! x [...] | | | ask for the perinatologist director of operations support. [phone] or [phone] | | | SUNITHA LIPSCOMB MD <Electronic [...] - 12/18/2019 3:43 PM PDT | | [facility] OBSTETRICAL ULTRASOUND | | REPORT Pat. Name: | | TANISHA LANDRUM MPat. No: [id number] Date: 12/18/2019 9:31amDOB, Age: | | 2000, 19Pregnancies: 2, Para 0010LMP: 06/01/2019 GA by LMP: | | 05i3fVT by Last: 95g2fAH by US: 26u1tHG Selected: 28w4d (From Known E)LAUREN: | | 03/07/2020Referring MD: Ita Glasgow MDSonographer: Che AyonPT4: | | [address] ONTREDIVGVWE | | & AGE GROWTH EVALUATIONMeasurement GA Range Srce %for | | GA Ratios ----- ---- ------- BPD 7.4 | | cm 29w4d (81i7i-03m8d) Hadl BPD 70% FL/BPD 0.73 (0.71 - 0.87)HC 27.7 cm 30w2d | | (43i5q-81x2p) Hadl HC 75% FL/AC 0.23 (0.20 - 0.24)AC 23.7 cm 28w0d (32r6z-49f9h) Hadl | | AC 38% HC/AC 1.17 (0.99 - 1.18)FL 5.4 cm 28w4d (53i1e-99h8m) Hadl FL 49% CI | | 0.75 (0.70 - 0.86)GA for sonogram 28w5d (57k1u-87i3e) Weight Estimate:based on | | (BPD,HC,AC,FL) Hadlock Weight: 1232 gm (1052-1412gm) Had | | : 2lbs, 11oz Normal: 1241 gm | | (839-1791gm) Bren Wt% 49% for 11p1fCxoio Heart | | Rate: 144 bpmAmniotic Fluid [...] x !Chest/Lungs/R! ! ! ! x !Cardiac Langford/! | | ! ! ! x !Four [...] and ask for the | | perinatologist director of operations support. [phone] or [phone], JAMIE, | | <Electronic Signature> 12/18/2019 10:58amI [...] ask for the perinatologist on | |call. [phone] or [phone] | |SUNITHA LIPSCOMB MD | | | [...]
--- OUTSIDE RECORDS SUMMARY | ~2020-03-06 | XMS | Encounter Summary ---
Demographics + + + | Address | [address] | | | [place] [address] | + + + | Home Phone | | + + + | Preferred Language | Unknown | + + + | Marital Status | Single | + + + | Pentecostal Affiliation | Unknown | + + + | Race | White | + + + | Ethnic Group | Not or | + + + Author + + + | Author | [facility] | + + + | Organization | [facility] | + + + | [...] Team Providers + +------+ + | Care Organ Pipe Finisher Name | Role | Phone | + +------+ + | No Pcp Per Patient | PCP | Unavailable | + +------+ + Reason for Visit + + + | Reason | Comments | + + + | Appointment | Phone vs. Virtual Visit | + + + Encounter Details +--------+ + + + + | Date | Type | Department | Care Team | Description | +--------+ + + + + | 12/29/ | Telephone | [facility] | Ama Rahman | Appointment (Phone | | 2019 | | [facility] [address] | MD Vickie,[facility] [address] | vs. Virtual Visit) | | | | [address] [place], | | | | | [address] [place], [place] | [place] [address] | | | | | [address] | [phone] | | | | | [phone] | | | +--------+ + + + [...] 2020 | | Gynecology | MD Vickie,[address] | | | | | | [place], | | | | | | [place] [address] | | | | | | [phone] | | | | | | | | +--------+ + + + + documented as of this encounter Visit Diagnoses Not on filedocumented in this encounter"
--- OUTSIDE RECORDS SUMMARY | ~2020-03-06 | XMS | Encounter Summary ---
Demographics + + + | Address | [address] | | | [place] [address] | + + + | Home Phone | | + + + | Preferred Language | Unknown | + + + | Marital Status | Single | + + + | Buddhism Affiliation | Unknown | + + + [...] Team Providers + +------+ + | Care Inventory Analyst Name | Role | Phone | + +------+ + | No Pcp Per Patient | PCP | Unavailable | + +------+ + Encounter Details +--------+--------+ + + + | Date | Type | Department | Care Team | Description | +--------+--------+ + + + | 07/28/ | Travel | | | | | [...] [address] | | | | | | [place], | | | | | | [place] [address] | | | | | | [phone] | | | | | | | | +--------+ + + + + documented as of this encounter Visit Diagnoses Not on filedocumented in this encounter"
--- OUTSIDE RECORDS SUMMARY | ~2020-03-06 | XMS | Encounter Summary ---
Demographics + + + | Address | [address] | | | [place] [address] | + + + | Home Phone | | + + + | Preferred Language | Unknown | + + + | Marital Status | Single | + + + | Restorationist Affiliation | Unknown | + + + | Race | White | + + + | Ethnic Group | Not or | + + + Author + + + | Author | [facility] | + + + | Organization | [facility] | + + + | Address [...] Team Providers + +------+ + | Care Road Tester Name | Role | Phone | + +------+ + | No Pcp Per Patient | PCP | Unavailable | + +------+ + Encounter Details +--------+ + + + + | Date | Type | Department | Care Team | Description | +--------+ + + + + | 07/25/ | Abstract | [facility] | Leonor Gomez RN | | | 2019 | | [facility] [place] [address] | [address] | [address] | [address] | [place], [place] | | | | | [address] [place], [place] | [address] | | | | | [address] | | | | | | [phone] | | | +--------+ + + + [...] documented as of this encounter Progress Notes Leonor Gomez RN - 07/25/2019 12:42 PM PDTChart abstraction completed in preparation for OB Intake. Used SheZoom to gather patient information for the chart, to be confirmed with the patient at the time of visit. First trimester u/s 07/28/[address] Philippe MD, intake to follow. documented in this enc ounter Plan of Treatment +--------+ + + + + | Date | Type | Specialty | Care Team | Description | +--------+ + + + + | 03/08/ | | Obstetrics & | Ama Rahman | | | 2020 | | Gynecology | MD Vickie,S [address] | | | | | | [place], | | | | | | [place] [address] | | | | | | [phone] | | | | | | | | +--------+ + + + + documented as of this encounter Visit Diagnoses + + | Diagnosis | + + | Supervision of low-risk , first trimester | + + documented in this encounter"
--- OUTSIDE RECORDS SUMMARY | ~2020-03-06 | XMS | Encounter Summary ---
Demographics + + + | Address | [address] | | | [place] [address] | + + + | Home Phone | | + + + | Preferred Language | Unknown | + + + | Marital Status | Single | + + + | Christian Affiliation | Unknown | + + + [...] Team Providers + +------+ + | Care Guest Associate Name | Role | Phone | + +------+ + | No Pcp Per Patient | PCP | Unavailable | + +------+ + Encounter Details +--------+--------+ + + + | Date | Type | Department | Care Team | Description | +--------+--------+ + + + | 10/15/ | Travel | | | | | [...] E | | | | | | [place], | | | | | | [place] [address] | | | | | | [phone] | | | | | | | | +--------+ + + + + documented as of this encounter Visit Diagnoses Not on filedocumented in this encounter"
--- OUTSIDE RECORDS SUMMARY | ~2020-03-06 | XMS | Encounter Summary ---
Demographics + + + | Address | [address] | | | [place] [address] | + + + | Home Phone [...] Author + + + | Author | [facility] | + + + | Organization | [facility] | + + + [...] Team Providers + +------+ + | Care Telephone Order Supervisor Name | Role | Phone | [...] + + + | 01/11/ | | [place] | Ita Glasgow, | care | | 2020 | | [facility] [address] | [address] [place], [place] | | | | | [address] [place], [place] | [address] | | | | | [address] | [phone] | | | | | [phone] | | | +--------+ + + + [...] + + + | Blood Pressure | 104/68 | 01/12/2020 9:03 AM | | | | | PDT [...] + + + + | Weight | 67.2 kg (148 lb 3.2 | 01/12/2020 9:03 AM | | | | oz) | PDT | | + + + + + | Height | - | - | | + + + + + | Body Mass Index | 24.1 | 07/28/2019 9:25 AM | | | | | PDT | | + + + + + documented in this encounter Patient Instructions Patient Instructions Lyn Diaz MA - 01/12/2020 9:00 AM PDTPrenatal Visit - Week 32 Please read chapters 9 and 27 in your book. Planning for the of your baby is important. Getting ready at home for your baby will assure that when you get home from the hospital, everything is ready for you and your baby to make the transition to your new life together. Some things to consider: ? Pediatric care ? Tdap ? Flu shots ? Vaccinations ? A place to sleep ? A place to change diapers ? A support system for you ? Nutrition Family Planning Did you talk to your mate about contraception? If not, do so soon. We would like you to h ave a solid plan in place even before your baby gets here. Why?.....because it s good for your baby, it s good for you, and it s good for your relationship with your mate. Also , we want you to be able to decide when you get , again. We now classify control methods into Tier 1 and Tier 2. Tier 2 methods are the ones that a lot of people make mistakes with ..they re good if used perfectly; but not dariana garcia is capable of that ALL the time (condoms get left in drawer - with the diaphragms); pi lls are forgotten or lost; and rings and patches require changing). Plus, many of the dual hormone methods (containing BOTH an estrogen and a progestin) may not be the best choice for mothers. The Tier 1 methods are the three I s : ? Injectables ? Implants ? IUDs Are you leery of hormones ? Many women decline or delay good contraception because th ey don t want hormones. Some of them delay/decline right up to another . When the risks of the hormones used in modern contraceptives are weighed against the risks of pre gnancy, there is no comparison ..the potential risks of are much higher. And all of these methods are safe to use when you are . Let s talk about this at your next visit. Maternal Age Not that 35 years is all that old .however, recent studies indicate that the unborn pily mckenna of older mothers may be at a higher risk of stillbirth as delivery approaches. T his risk increases as the mother s age increases, and is independent of other risk factors a mother may have (like diabetes or high blood pressure). We re not sure why this is it probably has something to do with the placenta; possi rachel with the aging of blood vessels, or some of the other phenomena associated with the agin g process. In any event, there is no clear explanation. Also, there is no clear standard o f care regarding how best to manage older mothers as the day of delivery approaches. Our practice has reached a consensus on what we recommend: ? Count to Ten. Keep a mental note of your baby s movements throughout the day. If you re concerned about less movement, eat or drink something and lie down on your left side in a quiet place. Start counting your baby s movements. If it takes more than 2 hours to c ount 10 distinct movements, call us. ? For women between the ages of 35-39, we advise testing in the 39th week of your , and induction of your labor if you go more than one week beyond your due madina e. ? For women over the age of 40, we suggest getting an ultrasound between weeks 34 and 36, b eginning weekly testing in the 36th week of , and induction of labor in the last week of your (39-40 weeks). ? We can talk about this at your next visit. testing involves assessment of your baby s heart rate (20-45 minutes on the fet al heart rate monitor) and a brief ultrasound to measure the fluid around the baby (a good g auge of the health of the placenta). Weeks 32 to 34 of Your : Care Instructions Your Care Instructions During the last few weeks of your , you may have more aches and pains. It's import ant to rest when you can. Your growing baby is putting more pressure on your bladder. So you may need to urinate more often. Hemorrhoids are also common. These are painful, itchy veins in the rectal area. In the 36th week, most women have a test for group B streptococcus (GBS). GBS is a common b acteria that can live in the vagina and rectum. It can make your baby sick after . If y ou test positive, you will get antibiotics during labor. These will keep your baby from gett ing the bacteria. You may want to talk with your doctor about banking your baby's umbilical cord blood. This is the blood left in the cord after . If you want to save this blood, you must arrange it ahead of time. You can't decide at the last minute. If you haven't already had the Tdap [...] you care for yourself at home? Ease hemorrhoids Get more liquids, fruits, vegetables, and fiber in your diet. This will help keep your s tools soft. Avoid sitting for too long. Lie on your left side several times a day. Clean yourself with soft, moist toilet paper. Or you can use witch jean pierre pads or persona l hygiene pads. If you are uncomfortable, try ice packs. Or you can sit in a warm sitz bath. Do these fo r 20 minutes at a time, as needed. Use hydrocortisone cream for pain and itching. Two examples are Anusol and Preparation H Hydrocortisone. Ask your doctor about taking an pcqf-pyx-ibngcnz stool softener. Consider Experts recommend that women breastfeed for 1 year or longer. Breast milk is the perfect food for babies. Breast milk is easier for babies to digest than formula. And it is always available, jus t the right temperature, and free. Breast milk may help protect your child from some health problems. Breastfed babies are less likely than formula-fed babies to: ? Get ear infections, colds, diarrhea, and pneumonia. ? Be obese or get diabetes later in life. Women who breastfeed have less bleeding after the . Their uteruses also shrink back faster. Some women who breastfeed lose weight faster. Making milk copeland calories. can lower your risk of breast cancer, ovarian cancer, and osteoporosis. Decide about circumcision for boys As you make this decision, it may help to think about your personal, tenriism, and fami ly traditions. You get to decide if you will keep your son's penis natural or if he will be circumcised. If you decide that you would like to have your baby circumcised, talk with your doctor. You can share your concerns about pain. And you can discuss your preferences for anesthesia. Where can you learn more? To learn more about "Weeks 32 to 34 of Your : Care Instructions", log into your My Chart account at [email or web address]. You can enter X711 in the "Health Library" [facility] box. Not on sfilatino? Review the Fidelishart section of your After Visit Summary for directions on otto rodriguez to sign up. Current as of: June 05, 2018 Content Version: 12.1 [id number] Shidonni. Care instructions adapted under license by [facility]. If you have questions about a medical condition or this instr uction, always ask your healthcare professional. [employer] disclaims any barbara anty or liability for your use of this information. documented in this encounter Progress Notes Ita Glasgow MD - 01/12/2020 9:00 AM PDTReturn OB Visit S: Doing well. Thinks she had a maurilio diop contraction, just one, while lying on her ba ck. Abdomen felt tight and felt like she had a stomach. Denies further contractions. Also h aving pain in her vagina, hurts to walk sometimes. She denies VB, LOF. Baby very active. O: VS: Wt 67.2 kg (148 lb 3.2 oz) | BMI 24.10 kg/m | BSA 1.77 m Gen: Well-appearing, in no distress Abd: soft, NT, gravid Ext: No LE edema or calf tenderness A/P: 19 y.o. at 32w1d here for visit. c/b tobacco use, PKU orquidea er (partner negative). - PNC: UTD, declined tdap - Discussed si/sx of labor and reasons to call/come in to hospital. Discussed norm al aches and pains of third trimester and exercises/stretching to try - Tobacco use: still smoking a few cig/day, working on quitting completely by delivery - RTC in 2 weeks - telemed visit Ita Glasgow MD Lyn Morales MA - 0 01/12/2020 9:00 AM PDT-albertina GALVAN.Electronically signed by Lyn Diaz MA at 01/11 9:50 AM PDTdocumented in this encounter Plan of Treatment +--------+ + + + + | Date | Type | Specialty | Care Team | Description | +--------+ + + + + | 03/08/ | | Obstetrics & | Ama Rahman | | 2019 | | Gynecology | MD Vickie,[address] | | | | | | [place], | | | | | | [place] [address] | | | | | | [phone] | | | | | | | | +--------+ + + + + documented as of this encounter Visit Diagnoses + + | Diagnosis | + + | Supervision of high risk in third trimester - Primary Unspecified high-risk | | | + + documented in this encounter
--- OUTSIDE RECORDS SUMMARY | ~2020-03-06 | XMS | Encounter Summary ---
Demographics + + + | Address | [address] | | | [place] [address] | + + + | Home Phone | | + + + | Preferred Language | Unknown | + + + | Marital Status | Single | + + + | Islam Affiliation | Unknown | + + + [...] Providers + +------+ + | Care Boilermaker [employer] Name | Role | Phone | + +------+ + | No Pcp Per Patient | PCP | Unavailable | + +------+ + Reason for Visit + + + | Reason | Comments | + + + | | possible uti? | + + + Encounter Details +--------+ + + + + | Date | Type | Department | Care Team | Description | +--------+ + + + + | 08/06/ | Telephone | [place] | Pentopoulos, | (possible | | 2019 | | [facility] [address] | MD Lizabeth [address] | uti?) | | | | [address] | | | | | [address] [place], [place] | [place], [place] | | | | | [address] | [address] | | | | | [phone] | [phone] | | | | | | | [...] 2020 | | Gynecology | MD Vickie,[address] | | | | | | [place], | | | | | | [place] [address] | | | | | | [phone] | | | | | | | | +--------+ + + + + documented as of this encounter Visit Diagnoses Not on filedocumented in this encounter"
--- OUTSIDE RECORDS SUMMARY | ~2020-03-06 | XMS | Encounter Summary ---
Demographics + + + | Address | [address] | | | [place] [address] | + + + | Home Phone [...] Author + + + | Author | [facility] | + + + | Organization | [facility] | + + + [...] Team Providers + +------+ + | Care Haircutter Name | Role | Phone | + +------+ + | No Pcp Per Patient | PCP | Unavailable | + +------+ + Reason for Visit + + + | Reason | Comments | + + + | Miscarriage | SAB | + + + Encounter Details +--------+ + + + + | Date | Type | Department | Care Team | Description | +--------+ + + + + | 04/23/ | Telephone | [place] | Pentopoulos, | Miscarriage (SAB) | | 2019 | | [facility] [address] | MD Lizabeth [address] | | | | | [address] | | | | | [address] [place], [place] | [place] | | | | | [address] | [address] | | | | | [phone] | [phone] | | | | | | | [...] 2020 | | Gynecology | MD Vickie,[address] | | | | | | [place], | | | | | | [place] [address] | | | | | | [phone] | | | | | | | | +--------+ + + + + documented as of this encounter Visit Diagnoses Not on filedocumented in this encounter"
--- OUTSIDE RECORDS SUMMARY | ~2020-03-06 | XMS | Encounter Summary ---
Demographics + + + | Address | [address] | | | [place] [address] | + + + | Home Phone [...] Author + + + | Author | [facility] | + + + | Organization | [facility] | + + + | Address [...] Team Providers + +------+ + | Care Humanities Coordinator Name | Role | Phone | + +------+ + | No Pcp Per Patient | PCP | Unavailable | + +------+ + Reason for Visit + + + | Reason | Comments | + + + | care | spotting | + + + Encounter Details +--------+ + + + + | Date | Type | Department | Care Team | Description | +--------+ + + + + | 04/18/ | Telephone | [place] | Pentopoulos, | care | | 2019 | | [facility] [address] | MD [address]izabeth [address] | (spotting ) | | | | [address] | | | | | | [address] [place], [place] | [place] | | | | | [address] | [address] | | | | | [phone] | [phone] | | | | | | | [...] 2020 | | Gynecology | MD Vickie,[address] | | | | | | [place], | | | | | | [place] [address] | | | | | | [phone] | | | | | | | | +--------+ + + + + documented as of this encounter Visit Diagnoses Not on filedocumented in this encounter"
--- OUTSIDE RECORDS SUMMARY | ~2020-03-06 | XMS | Encounter Summary ---
Demographics + + + | Address | [address] | | | [place] [address] | + + + | Home Phone | | + + + | Preferred Language | Unknown | + + + | Marital Status | Single | + + + | Buddhist Affiliation | Unknown | + + + | Race | White | + + + | Ethnic Group | Not or | + + + Author + + + | Author | [facility] | + + + | Organization | [facility] | + + + | [...] Team Providers + +------+ + | Care Keel Press Operator Name | Role | Phone [...] + + + | 10/15/ | | [place] | | Obstetric US Scan; | | 2020 | | [facility] [address] | | care | | | | [address] | | | | | | [address] [place], [place] | | | | | | [address] | | | | | | [phone] | | | +--------+ + + + [...] documented as of this encounter Progress Notes Lyn Diaz MA - 10/15/2019 9:15 AM PSTSecond trimester u/s, to be read at [facility]. Lyn Diaz MA documented in this enco unter Plan of Treatment +--------+ + + + + | Date | Type | Specialty | Care Team | Description | +--------+ + + + + | 03/08/ | | Obstetrics & | Ama Rahman | | 2019 | | Gynecology | MD Vickie,[address] | | | | | | [place], | | | | | | [place] [address] | | | | | | [phone] | | | | | | | | +--------+ + + + + documented as of this encounter Procedures + +--------+ + + + | Procedure Name | Priori | Date/Time | Associated Diagnosis | Comments | | | ty | | | | + +--------+ + + + | CLINIC OB >=14 | Routin | 10/15/2019 | Supervision of | Results for this | | WEEKS SINGLE FETUS - | e | 9:26 AM | low-risk , | procedure are in the | | EXTERNAL READ | | PST | first trimester | results section. | + +--------+ + + + documented in this encounter Results [facility] OB >=14 WEEKS SINGLE FETUS - EXTERNAL READ (10/15/2019 9:26 AM PST) + + | Specimen | + + | | + + + + + | Impressions | Performed At | + + + | Ultrasound exam performed at [facility] and will | [facility] | | be read/resulted at [facility]. | DEPARTMENT OF | | | RADIOLOGY [...]
--- OUTSIDE RECORDS SUMMARY | ~2020-03-06 | XMS | Encounter Summary ---
Demographics + + + | Address | [address] | | | [place] [address] | + + + | Home Phone [...] Author + + + | Author | [facility] | + + + | Organization | [facility] | + + + | Address | [...] Team Providers + +------+ + | Care Appointment Specialist Name | Role | Phone | + [...] | | | | | Supervision | Aki Johnston, | Telemedicine | | | | | of high | [facility] [address] | | | | | risk | [address] | | | | | | [place], | [place], | | | | | | [place] | [place] | | | | | | [address] | [address] | | | | | | Phone: | Phone: | | | | | | [phone] | [phone] | | | | | | Fax: | Fax: | | | | | | [phone] | [phone] | + +--------+ + + + + Encounter Details +--------+ + + + + | Date | Type | Department | Care Team | Description | +--------+ + + + + | 10/15/ | Ancillary | Perinatology | | | | 2019 | Procedure | Telemedicine [address] | | | | | | [address] | | | | | | [place], [place] | | | | | | [address] | | | | | | [phone] | | | +--------+ + + + [...] E | | | | | | [place], | | | | | | [place] [address] | | | | | | [phone] | | | | | | | | +--------+ + + + + documented as of this encounter Procedures + +--------+ + + + | Procedure Name | Priori | Date/Time | Associated Diagnosis | Comments | | | ty | | | | + +--------+ + + + | TELEMEDICINE | Routin | 10/15/2019 | Encounter for | Results for this | | ULTRASOUND | e | 7:33 AM | screening | procedure are in the | | | | PST | for malformation | results section. | | | | | using ultrasound | | + +--------+ + + + documented in this encounter Results TELEMEDICINE ULTRASOUND (10/15/2019 7:33 AM PST) + + | Specimen | + + | | + + + + + | Narrative | Performed At | + + + | [facility] | [facility] | | OBSTETRICAL ULTRASOUND REPORT | RADIOLOGY OB US | | | | | Pat. Name: TANISHA LANDRUM Pat. No: [id number] | | | Study Date: 10/15/2019 9:26am , Age: 1 2000, 18 | | | Pregnancies: 2, Para 0010 LMP: Unknown GA by | | | US: 19w1d GA Selected: 19w3d (From Known E) LAUREN: | | | 03/07/2020 Referring MD: AKI RAHMAN Cutter Operator Helper: | | | Beena Wayissa [facility] CPT4: 45641 | | | | | | MEASUREMENTS & AGE GROWTH EVALUATION | | | Measurement GA Range Srce %for GA Ratios | | | ----- ---- ------- BPD 4.5 | | | cm 19w3d (18b4b-45s2b) Hadl BPD 51% FL/BPD 0.69 HC 16.3 cm 19w1d | | | (05r2k-29s8y) Hadl HC 39% FL/AC 0.22 AC 13.8 cm 19w1d | | | (50e7d-90r7m) Hadl AC 45% HC/AC 1.19 (1.06 - 1.25) FL 3.1 cm | | | 19w4d (86m4j-18h6j) Hadl FL 53% CI 0.77 (0.70 - 0.86) HL | | | 3.0 cm 19w6d (58q8m-15c2w) Ilan HL 58% Cere 2.2 cm | | | [place] Alisson [place] for sonogram 19w1d (60c5x-49y0r) | | | Weight Estimate: based on (BPD,HC,AC,FL) Hadlock | | | Weight: 286 gm (245-328gm) Hadloc | | | : 0lbs, 10oz Markers [...] ! | | | ! ! Cardiac Ottertail/! x ! ! | | | ! [...] the perinatologist on | | | call. [phone] or [phone] CINDY BERMAN MD | | | <Electronic Signature> 10/15/2019 11:21am | | | I have personally reviewed the images and, if necessary, edited the | | | report. I agree with the report as now presented. | | + + + + + | Procedure Note | + + | Service Account, Radiant Res In Interface - 10/15/2019 11:22 AM PST | | [facility] OBSTETRICAL ULTRASOUND | | REPORT Pat. Name: | | TANISHA LANDRUMat. No: [id number] Date: 10/15/2019 9:26amDOB, Age: | | 2000, 18Pregnancies: 2, Para 0010LMP: UnknownGA by US: | | 13m7dFO Selected: 19w3d (From Known E)LAUREN: 03/07/2020Referring MD: JOSIAH, | | AKISonographer: Ronel Way RDMSCPT4: | | [id number] [id number] | | & AGE GROWTH EVALUATIONMeasurement GA Range Srce %for | | GA Ratios ----- ---- ------- BPD 4.5 | | cm 19w3d (98l2m-49n6w) Hadl BPD 51% FL/BPD 0.69HC 16.3 cm 19w1d (25d7p-18g2n) Hadl HC | | 39% FL/AC 0.22AC 13.8 cm 19w1d (70k9r-62c1q) Hadl AC 45% HC/AC 1.19 (1.06 - 1.25)FL | | 3.1 cm 19w4d (26z6j-58o7k) Hadl FL 53% CI 0.77 (0.70 - 0.86)HL 3.0 cm 19w6d | | (78k4t-13x9e) Ilan HL 58%Cere 2.2 cm [place] C[place] for sonogram | | 19w1d (38p6u-82a6p) Weight Estimate:based on (BPD,HC,AC,FL) Hadlock Weight: | [...] x ! ! ! | | !Cardiac Ottertail/! x ! ! ! !Four Chamber ! [...] any time and ask for the perinatologist non destructive testing inspector. [phone] or | | [phone] BERMAN MD <Electronic Signature> 10/15/2019 | | [...] ask for the perinatologist on | |call. [phone] or [phone] | |CINDY BERMAN MD | | | [...] Encounter for screening for malformation using ultrasound | + + documented in this encounter"
--- OUTSIDE RECORDS SUMMARY | ~2020-03-06 | XMS | Encounter Summary ---
Demographics + + + | Address | [address] | | | [place] [address] | + + + | Home Phone [...] Author + + + | Author | [facility] | + + + | Organization | [facility] | + + + [...] Team Providers + +------+ + | Care Fur Tailor Name | Role | Phone | + +------+ + | No Pcp Per Patient | PCP | Unavailable | + +------+ + Reason for Visit + + + | Reason | Comments | + + + | care | | + + + Encounter Details +--------+---------+ + + + | Date | Type | Department | Care Team | Description | +--------+---------+ + + + | 01/25/ | Office | [facility] | Ita Glasgow, | [facility] | [facility] | Visit | [facility] | MD [address] | risk in | | | | [address] [place], [place] | third trimester | | | | [address] [place], [place] | [address] | (Primary Dx) | | | | [address] | [phone] | | | | | [phone] | | | +--------+---------+ + + + Social History + + [...] + + + + | Weight | 69.5 kg (153 lb 3.2 | 01/26/2020 1:04 PM | | | | oz) | PDT | | + + + + + | Height | - | - | | + + + + + | Body Mass Index | 24.92 | 07/28/2019 9:25 AM | | | | | PDT | | + + + + + documented in this encounter Patient Instructions Patient Instructions Lyn Diaz MA - 01/26/2020 1:15 PM PDTPrenatal Visit - Week 34 Please read chapter 18 in your book. Group B Strep (GBS) At your next visit we will be obtaining a culture for Group B Strep (GBS). Group B strepto coccus is a bacteria. About 30% of women carry GBS in the vagina and/or rectum. For most a dults and children GBS is not a harmful bacteria. However, if it gets into the blood of a n ewborn it can cause serious illness. We will use two small Qtips to collect a sample from your vagina and rectum. The culture p rocedure takes just a few seconds and should not be uncomfortable. If the culture is positive for GBS we will want to give you antibiotics when you re in la bor to prevent your baby from infection. If you are allergic to Penicillin, let your doctor or soup person know. Did you get your Tdap shot? Here s another reminder about the Tdap vaccine. We want the people who will be around yo ur baby to be immunized against diphtheria and pertussis. Remind those people to get their Tdap shot! And while you re at it .if it s Flu Season, have everyone get a flu shot. Family Medical Leave Act (FMLA) / Disability [...] turn-around diana diaz to get this done. Weeks 34 to 36 of Your : Care Instructions Your Care Instructions By now, your baby and your belly have grown quite large. It is almost time to give . Y our baby's lungs are almost ready to breathe air. The bones in your baby's head are now firm enough to protect it, but soft enough to move down through the canal. You may feel excited, happy, anxious, or scared. You may wonder how you will know if you ar e in labor or what to expect during labor. Try to be flexible in your expectations of the [facility]. Because each is different, there is no way to know exactly what childbirth will b e like for you. This care sheet will help you know what to expect and how to prepare. This m ay make your childbirth easier. If you haven't already had the Tdap shot during this , talk to your doctor about g etting it. It will help protect your against pertussis infection. In the 36th week, most women have a test for group B streptococcus (GBS). GBS is a common b acteria that can live in the vagina and rectum. It can make your baby sick after . If y ou test positive, you will get antibiotics during labor. The medicine will keep your baby fr om getting the bacteria. Follow-up care is a pena part of your treatment and safety. Be sure to make and go to all ap pointments, and call your doctor if you are having problems. It's also a good idea to know y our test results and keep a list of the medicines you take. How can you care for yourself at home? Learn about pain relief choices Pain is different for every woman. Talk with your doctor about your feelings about pain. You can choose from several types of pain relief. These include medicine or breathing te chniques, as well as comfort measures. You can use more than one option. If you choose to have pain medicine during labor, talk to your doctor about your options . Some medicines lower anxiety and help with some of the pain. Others make your lower body n umb so that you won't feel pain. Be sure to tell your doctor about your pain medicine choice before you start labor or ve ry early in your labor. You may be able to change your mind as labor progresses. Rarely, a woman is put to sleep by medicine given through a mask or an IV. Labor and delivery The first stage of labor has three parts: early, active, and transition. ? Most women have early labor at home. You can stay busy or rest, eat light snacks, drink c lear fluids, and start counting contractions. ? When talking during a contraction gets hard, you may be moving to active labor. During ac tive labor, you should head for the hospital if you are not there already. ? You are in active labor when contractions come every 3 to 4 minutes and last about 60 sec onds. Your cervix is opening more rapidly. ? If your water breaks, contractions will come faster and stronger. ? During transition, your cervix is stretching, and contractions are coming more rapidly. ? You may want to push, but your cervix might not be ready. Your doctor will tell you when to push. The second stage starts when your cervix is completely opened and you are ready to push. ? Contractions are very strong to push the baby down the canal. ? You will feel the urge to push. You may feel like you need to have a bowel movement. ? You may be coached to push with contractions. These contractions will be very strong, but you will not have them as often. You can get a little rest between contractions. ? You may be emotional and irritable. You may not be aware of what is going on around you. ? One last push, and your baby is born. The third stage is when a few more contractions push out the placenta. This may take 30 minutes or less. The fourth stage is the welcome recovery. You may feel overwhelmed with emotions and exh austed but alert. This is a good time to start . Where can you learn more? To learn more about "Weeks 34 to 36 of Your : Care Instructions", log into your My Chart account at [email or web address]. You can enter B912 in the "Health Library" [facility] box. Not on Medalliahart? Review the MyChart section of your After Visit Summary for directions on otto w to sign up. Current as of: June 05, 2018 Content Version: [id number] Typemock. Care instructions adapted under license by [facility] [employer] & Science [place]. If you have questions about a medical condition or this instr uction, always ask your healthcare professional. [employer] disclaims any barbara anty or liability for your use of this information. documented in this encounter Progress Notes Ita Glasgow MD - 01/26/2020 1:15 PM PDTReturn OB Telemed Visit S: Patient is doing pretty well. Feeling generally uncomfortable. Abdomen is always tight . She is also experiencing acid reflux and feeling nauseous after meals. She hasn't tried an ything for this. Reports baby is super active and kicks now hurt. Denies contractions, VB, L OF. O: VS: Wt 69.5 kg (153 lb 3.2 oz) | BMI 24.92 kg/m | BSA 1.8 m Gen: Well-appearing, in no distress A/P: 19 y.o. at 34w0d here for visit. c/b tobacco use. - PNC: UTD, GBS at next visit - Tobacco use: still smoking, has been a stressful time as a family friend recently . She is still hoping to quit before her delivery - GERD: Rx for famotidine provided - Discussed contraception, pt plans condoms only, has had bad experiences with contraceptio n in past. We discussed IUDs and she is open to learning about them. Will provide more info at her next visit. - RTC in 2 weeks [address] visit took place via Telemedicine. Patient location is the home. Patient was located in the [facility] at the time of the visit. Telepresenter (relative and/or veneer glue spreader) was not used during the visit. Ita Glasgow MD yn Diaz MA - 0 01/26/2020 1:15 PM PDT-UTD -GBS at next visit. -feeling uncomfortable from , pain in her belly. documented in this encounter Plan of Treatment +--------+ + + + + | Date | Type | Specialty | Care Team | Description | +--------+ + + + + | 03/08/ | | Obstetrics & | Ama Rahman | | | 2019 | | Gynecology | MD Vickie,[address] | | | | | | [place], | | | | | | [place] [address] | | | | | | [phone] | | | | | | | | +--------+ + + + + documented as of this encounter Visit Diagnoses + + | Diagnosis | + + | Supervision of high risk in third trimester - Primary Unspecified high-risk | | | + + documented in this encounter
--- OUTSIDE RECORDS SUMMARY | ~2020-03-06 | XMS | Encounter Summary ---
Demographics + + + | Address | [address] | | | [place] [address] | + + + | Home Phone | | + + + | Preferred Language | Unknown | + + + | Marital Status | Single | + + + | Yarsani Affiliation | Unknown | + + + [...] Team Providers + +------+ + | Care Audio Specialist Name | Role | Phone | + +------+ + | No Pcp Per Patient | PCP | Unavailable | + +------+ + Reason for Visit + + + | Reason | Comments | + + + | Scheduling | anatomy/growth u/s | + + + Encounter Details +--------+ + + + + | Date | Type | Department | Care Team | Description | +--------+ + + + + | 11/10/ | Telephone | [facility] | Ama Rahman | Scheduling | | 2020 | | [facility] | MD [address]ickie[address] | (anatomy/growth u/s) | | | | [address] | [place], | | | | | [address] [place], [place] | [place] [address] | | | | | [address] | [phone] | | | | | [phone] | | | +--------+ + + + [...] 2019 | | Gynecology | MD Vickie,[address] | | | | | | [place], | | | | | | [place] [address] | | | | | | [phone] | | | | | | | | +--------+ + + + + documented as of this encounter Visit Diagnoses Not on filedocumented in this encounter"
--- OUTSIDE RECORDS SUMMARY | ~2020-03-06 | XMS | Encounter Summary ---
Demographics + + + | Address | [address] | | | [place] [address] | + + + | Home Phone | | + + + | Preferred Language | Unknown | + + + | Marital Status | Single | + + + | Hoahaoism Affiliation | Unknown | + + + | Race | White | + + + | Ethnic Group | Not or | + + + Author + + + | Author | [facility] | + + + | Organization | [facility] | + + + | [...] Team Providers + +------+ + | Care Surgical Consultant Name | Role | Phone | + [...] | +--------+ + + + + | 11/24/ | | [place] | Ita Glasgow, | care | | 2019 | | [facility] [address] | [address] | | | | | [address] [place], [place] | | | | | [address] [place], [place] | [address] | | | | | [address] | [phone] | | | | | [phone] | | | +--------+ + + + [...] + + + | Blood Pressure | 96/60 | 11/24/2019 1:54 PM | | | | | PST | [...] + + + + | Weight | 63.5 kg (140 lb) | 11/24/2019 1:54 PM | | | | | PST | | + + + + + | Height | - | - | | + + + + + | Body Mass Index | 22.77 | 07/28/2019 9:25 AM | | | | | PDT | | + + + + + documented in this encounter Patient Instructions Patient Instructions Lolly YvesDELANO - 11/24/2019 2:15 PM PST Weeks 22 to 26 of Your : Care Instructions Your Care Instructions As you enter your 7th month of at week 26, your baby's lungs are growing stronger and getting ready to breathe. You may notice that your baby responds to the sound of your o r your partner's voice. You may also notice that your baby does less turning and twisting an d more squirming or jerking. Jerking often means that your baby has the hiccups. Hiccups are perfectly normal and are only temporary. You may want to think about attending a childbirth preparation class. This is also a good t candi to start thinking about whether you want to have pain medicine during labor. Most women are tested for gestational diabetes between weeks 24 and 28. Gestationa l diabetes occurs when your blood sugar level gets too high when you're . The test i s important, because you can have gestational diabetes and not know it. But the condition ca n cause problems for your baby. Follow-up care is a pena part of your treatment and safety. Be sure to make and go to all ap pointments, and call your doctor if you are having problems. It's also a good idea to know y our test results and keep a list of the medicines you take. How can you care for yourself at home? Ease discomfort from your baby's kicking Change your position. Sometimes this will cause your baby to change position too. Take a deep breath while you raise your arm over your head. Then breathe out while you d rop your arm. Do Kegel exercises to prevent urine from leaking You can do Kegel exercises while you stand or sit. ? Squeeze the same muscles you would use to stop your urine. Your belly and thighs should n ot move. ? Hold the squeeze for 3 seconds, and then relax for 3 seconds. ? Start with 3 seconds. Then add 1 second each week until you are able to squeeze for 10 se conds. ? Repeat the exercise 10 to 15 times for each session. Do three or more sessions each day. Ease or reduce swelling in your feet, ankles, hands, and fingers If your fingers are puffy, take off your rings. Do not eat high-salt foods, such as potato chips. Prop up your feet on a stool or couch as much as possible. Sleep with pillows under your feet. Do not stand for long periods of time or wear tight shoes. Wear support stockings. Where can you learn more? To learn more about "Weeks 22 to 26 of Your : Care Instructions", log into your My Chart account at [email or web address]. You can enter G264 in the "[employer]" [facility] box. Not on TeliApp? Review the Aplos Softwarehart section of your After Visit Summary for directions on ho w to sign up. Current as of: June 05, 2018 Content Version: [id number] ReadyDock. Care instructions adapted under license by [facility] [employer] & Science [place]. If you have questions about a medical condition or this instr uction, always ask your healthcare professional. [employer] disclaims any barbara anty or liability for your use of this information. Visit - Week 24 Please read chapters 7, 23 and 24 in your book. Please come 30 minutes early to y our next appointment for your 1 hour glucose test. Screening for Gestational Diabetes, Anemia, and Low Platelets (1 hour glucose tolerance test and complete blood count) This test should be done at 26-28 weeks in . Please avoid high sugar foods prior to the test. Eat a normal, healthy, diet. Expect to stay at our office for 1 to 1.5 hours to complete the test. You will be given a glucose drink called Glucola. You will drink the entire content of the bottle within 5 minutes. Once you drink the Glucola, do NOT eat, sleep, drink fluids, smoke or exercise until after your blood is drawn. We will draw your blood exactly one hour after you have finished the Glucola. Let s talk some more about Labor (also known as premature labor). The most impor tant message is this: if you think you re in labor, we want you to call us. So, who s at risk of having a baby prematurely? The answer is all women. Howev er, if you had a premature baby in a previous you re at a much higher risk. Wom en who smoke cigarettes also have a higher risk. The majority of time when a woman thinks she might be in premature labor, she is not. Even when we suspect that a woman might be in premature labor, most of those women go on to have their baby at term. Thus, it probably goes without saying, that the diagnosis of l abor is difficult. However, we do know this: babies born prematurely have some serious prob lems. Some actually , and others can have problems like blindness and cerebral palsy. F ortunately, there are a couple of important things that we can do that increase the chance o f a happy/healthy outcome for premature babies. So, when should you call us if you think you might be in premature labor? One problem is t hat premature labor can feel different to different women. If you re not sure, call us. Here are some suggestions: ? Painful uterine contractions, that persist beyond one hour ? Uncomfortable uterine contractions, more than 4 in one hour ? Watery vaginal discharge ? Bloody vaginal discharge ? Abdominal pain and the symptoms of infection (fever, chills, muscle aches, or the feeling that you re coming down with the flu) Try these things: 1. stop what you re doing 2. hydrate yourself (at least a couple of glasses of water); 3. empty your bladder 4. lie down 5. take a hot bath. Doing these things often stops the contractions that are NOT premature labor. Who do I call if I think I might be in premature labor? ? The clinic at [phone] ? Labor and Delivery at [phone] Your Blood Type Do you know your blood type? Do you know if you re Rh Positive or Rh Negative? Ask your doctor or survey director what your blood type is. If you are Rh Negative (and your baby s fathe r is Rh Positive), there s a possibility that your baby s blood is somewhat incompati ble with yours. If so, there s a small chance that you could make antibodies against y our baby s (or your next baby s) blood. Don t worry. We have a great way to prevent this. For Rh Negative mothers, we can give you an injection of antibodies that will gobble up any of your baby s blood cells that sne ak past the placenta. We need to give you these antibodies at your next visit (28 weeks). After the baby is born we may give you another of these shots (if your baby is Rh Positive). documented in this encounter Progress Notes Ita Glasgow MD - 11/24/2019 2:15 PM PSTReturn OB Visit S: Doing well. Just had anatomy US, having a boy! No concerns. Still smoking a couple of ci garettes per day. O: VS: BP 96/60 | Wt 63.5 kg (140 lb) | BMI 22.77 kg/m | BSA 1.72 m Gen: Well-appearing, in no distress Abd: soft, NT, gravid Ext: No LE edema or calf tenderness A/P: 18 y.o. at 25w1d here for visit. 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 - PNC: UTD, GTT and CBC at next visit - completion of anatomy scheduled 12/17 - Smoking: discussed and encouraged cessation again today. Hasn't been able to cut back muc h since last visit - RTC in 3 weeks Ita Glasgow MD documented in this en counter Plan of Treatment +--------+ + + + + | Date | Type | Specialty | Care Team | Description | +--------+ + + + + | 03/08/ | | Obstetrics & | Ama Rahman | | | 2019 | | Gynecology | MD Vickie,[address] | | | | | | [place], | | | | | | [place] [address] | | | | | | [phone] | | | | | | | | +--------+ + + + + documented as of this encounter Visit Diagnoses + + | Diagnosis | + + | Supervision of high risk in second trimester - Primary Unspecified | | high-risk | + + documented in this encounter
--- OUTSIDE RECORDS SUMMARY | ~2020-03-06 | XMS | Encounter Summary ---
Demographics + + + | Address | [address] | | | [place] [address] | + + + | Home Phone | | + + + | Preferred Language | Unknown | + + + | Marital Status | Single | + + + | Religion Affiliation | Unknown | + + + | Race | White | + + + | Ethnic Group | Not or | + + + Author + + + | Author | [facility] | + + + | Organization | [facility] | + + + [...] Team Providers + +------+ + | Care Security Threat Analyst Name | Role | Phone | [...] + + + | 03/01/ | | [place] | Ama Rahman | care | | 2020 | | [facility] [address] | MD Vickie,S [address] | | | | [address] [place], | | | | | [address] [place], [place] | [place] [address] | | | | | [address] | [phone] | | | | | [phone] | | | +--------+ + + + [...] in this encounter Patient Instructions Patient Instructions Candice Calle MA - 03/01/2020 10:30 AM PDTAmparo read chapter 16 in your book. While you wait Continue to monitor for any contractions, fluid leakage, bleeding or decreased moveme nt. If you have bleeding or decreased movement, are in labor or think your water has broken, please go to [facility] (Labor and Delivery). Please call if you have any concerns. After hours call [facility] if you think you are in labor to let them know you are c abner in. [phone]. Don t sit by the phone and wait for labor to start, it s like watching a tea kett le and waiting for it to boil! The baby always comes out! ? Get out and keep taking those walks it gets a bit harder to walk far but keep your mu scles moving. ? Food your favorite topic it s always tempting at this point to throw caution to t he wind and start eating all those things you ve been trying to avoid during . B ut try and stick to the healthy stuff, you and your baby will feel better ? Check that bag you ve packed do you want to add some flip flops, a robe, a cozy julita nket, a set of your favorite toiletries. Make sure your partner also has a bag lightwei ght and warmer layers, some snacks for him (you probably won t have much of an appetite), some battery operated tea lights (nice for relaxation in labor), be creative ? Take some naps uninterrupted ones with no baby to wake you up. ? Get your partner to take you out on a date it might be a while before you get a chance to have a nice dinner out, go to a movie, or go to [employer] to browse the book Iagnosis es. Last minute checks ? Car seat installed? FMLA/Disability papers done? Maxi pads stashed? Music play list prepa red? Breast pump and accessories available (practice putting things together)? . You re ready! Now relax and have a chat with your baby about how great life would be if s/he came out! Week 39 of Your : Care Instructions Your Care Instructions During these final weeks, you may feel anxious to see your new baby. [place] babies often l ook different from what you see in pictures or movies. Right after , their heads may licona ve a strange shape. Their eyes may be puffy. And their genitals may be swollen. They may als o have very dry skin, or red prabhakar on the eyelids, nose, or neck. Still, most parents think their babies are beautiful. Follow-up care is a pena part of your treatment and safety. Be sure to make and go to all ap pointments, and call your doctor if you are having problems. It's also a good idea to know y our test results and keep a list of the medicines you take. How can you care for yourself at home? Prepare to breastfeed If you are , continue to eat healthy foods. If your health care provider recommends it, keep taking your vitamins. Talk to your doctor before you take any medicine or supplement. That's because some medi cines can affect your breast milk. You can help prevent sore nipples if you feed your baby in the correct position. Nurses will help you learn to do this. Your will need to be fed about every 1 to 3 hours. Choose the right control after your baby is born Women who are can still get . Use control if you don't want to get . Intrauterine devices (IUDs) are very effective at preventing and can provide b irth control for 3 to 10 years, depending on the type. If you talk with your doctor before h aving your baby, the IUD can be placed right after you give . If you decide you want to get later, you can have it removed. They are safe to use while you are breastfeedi ng. A hormonal implant is also very effective at preventing . It is placed under th e skin of the arm. This can be done right after you give . It releases the hormone prog estin and prevents for about 3 years. This can also be removed by a doctor at any time. It is safe to use while you are . Depo-Provera can be used while you are . It is a shot you get every 3 month s. control pills work well. But you need a different kind of pill for the first few w eeks after giving . And when you start taking these pills, you need to make sure to use another type of control for 7 days after you start your pack. Diaphragms, cervical caps, and condoms with spermicide work less well after . If yo u have a diaphragm or cervical cap, talk to your doctor to see if you need a different size. Tubal ligation (tying your tubes) and vasectomy are both permanent. These are good optio ns if you are sure you are done having children. Where can you learn more? To learn more about "Week 39 of Your : Care Instructions", log into your [employer] a ccount at http://www.[email or web address]/[employer]. You can enter A811 in the "Health Library" search box . Not on [employer])? Review the [employer] section of your After Visit Summary for directions on ho w to sign up. Current as of: June 05, 2018 Content Version: 12.20056018-2816 [employer]. Care instructions adapted under license by [facility] [employer]. If you have questions about a medical condition or this instr uction, always ask your healthcare professional. [employer] disclaims any barbara anty or liability for your use of this information. documented in this encounter Progress Notes Candice Calle MA - 03/01/2020 10:30 AM PDTShe is having random contractions. Electronica lly signed by Candice Calle MA at 03/01/2020 11:06 AM Ama Magana MD,S - 10/2019 10:30 AM PDTS/No VB/LOF/UCs. +FM. Ready to have this baby! O/BP 110/62 | Wt 69.9 kg (154 lb) | BMI 25.05 kg/m | BSA 1.8 m See flowsheet Gen - NAD, non-toxic SVE - 1+/50%/-3, posterior, medium, membranes swept A/P/IUP @ 39w 1d doing well. -Labs - GBS neg -Post dates mgmt recs discussed - pt would lean towards IOL at 41wks but will discuss with fiance -Labor and preeclampsia sx reviewed -RTC 1wk Ama Rahman MD,[facility] documented in this encounter Plan of Treatment +--------+ + + + + | Date | Type | Specialty | Care Team | Description | +--------+ + + + + | 03/08/ | | Obstetrics & | Ama Rahman | | | 2019 | | Gynecology | MD Vickie,[address] | | | | | | [place], | | | | | | [place] [address] | | | | | | [phone] | | | | | | | | +--------+ + + + + documented as of this encounter Visit Diagnoses + + | Diagnosis | + + | Supervision of high risk in third trimester - Primary Unspecified high-risk | | | + + documented in this encounter
--- OUTSIDE RECORDS SUMMARY | ~2020-03-06 | XMS | Encounter Summary ---
Demographics + + + | Address | [address] | | | [place] [address] | + + + | Home Phone [...] + + + | Author | [facility] | + + + | Organization | [facility] | + + + | Address | [...] Team Providers + +------+ + | Care Channel Manager Name | Role | Phone | [...] [place] | | | | | | [address] | [address] | | | | | | Phone: | Phone: | | | | | | [phone] | [phone] | | | | | | Fax: | Fax: | | | | | | [phone] | [phone] | + +--------+ + + + + Encounter Details +--------+ + + + + | Date | Type | Department | Care Team | Description | +--------+ + + + + | 11/05/ | Ancillary | Perinatology | | | | 2019 | Procedure | Telemedicine [address] | | [address] | | | | | | [place], [place] | | | | | | [address] | | | | | | [phone] | | | +--------+ + + + [...] E | | | | | | [place], | | | | | | [place] [address] | | | | | | [phone] | | | | | | | | +--------+ + + + + documented as of this encounter Procedures + +--------+ + + + | Procedure Name | Priori | Date/Time | Associated Diagnosis | Comments | | | ty | | | | + +--------+ + + + | TELEMEDICINE | Routin | 11/05/2019 | | Results for this | | ULTRASOUND | e | 8:02 AM | screening for | procedure are in the | | | | PST | chromosomal anomaly | results section. | | | | | by amniocentesis | | + +--------+ + + + documented in this encounter Results TELEMEDICINE ULTRASOUND (11/05/2019 8:02 AM PST) + + | Specimen | + + | | + + + + + | Narrative | Performed At | + + + | [facility] | [facility] | | OBSTETRICAL ULTRASOUND REPORT | RADIOLOGY OB US | | | | | Pat. Name: TANISHA LANDRUM Pat. No: [id number] Study | | | Date: 11/05/2019 11:12am , Age: 02 2000, 18 | | | Pregnancies: 2, Para 0010 LMP: 06/01/2019 | | | GA by LMP: 22w3d GA by US: 22w2d GA Selected: 22w3d | | | (LMP) LAUREN: 03/07/2020 Referring MD: Ita Glasgow MD | | | Engraver Machine: Ronel Way [facility] CPT4: [id number] | | | Hist/Ind: Completion of anatomy Growth | | | | | | MEASUREMENTS & AGE GROWTH EVALUATION | | | Measurement GA Range Srce %for GA Ratios | | | ----- ---- ------- BPD 5.6 | | | cm 23w0d (01v9c-56l5s) Hadl BPD 67% FL/BPD 0.71 HC 20.4 cm 22w4d | | | (70q8j-20o1p) Hadl HC 55% FL/AC 0.24 (0.20 - 0.24* AC 16.5 cm | | | 21w4d (00o2u-54l1y) Hadl AC 31% HC/AC 1.24 (1.04 - 1.23* FL | | | 4.0 cm 22w6d (32t2g-48f3q) Hadl FL 60% CI 0.78 (0.70 - 0.86) | | | GA for sonogram 22w2d (62d8r-08a3c) Weight Estimate: based on | | | [...] | | | ! x ! Cardiac Willow/! ! ! | | | ! x [...] any time and ask for the perinatologist acquisition consultant. [phone] | | | or [phone] GILDARDO COLLINS MD <Electronic | | | Signature> 11/05/2019 01:02pm I have personally reviewed the | | | images and, if necessary, edited the report. I agree with the | | | report as now presented. | | + + + + + | Procedure Note | + + | Service Account, Radiant Res In Interface - 11/06/2019 3:03 PM PST | | [facility] OBSTETRICAL ULTRASOUND | | REPORT Pat. Name: | | [facility] No: [id number] Date: 11/05/2019 11:12amDOB, Age: | | 2000, 18Pregnancies: 2, Para 0010LMP: 06/01/2019 GA by LMP: | | 33b2vOJ by US: 54b6oJV Selected: 22w3d (LMP)LAUREN: 03/07/2020Referring MD: | | Ita Glasgow MDSonographer: Ronel Way RDMSCPT4: [id number]/Ind: | | Completion of anatomy | | Growth MEASUREMENTS | | & AGE GROWTH EVALUATIONMeasurement GA Range Srce | | %for GA Ratios ----- ---- ------- BPD | | 5.6 cm 23w0d (25r3p-76l0x) Hadl BPD 67% FL/BPD 0.71HC 20.4 cm 22w4d (92u8d-62k5z) Hadl | | HC 55% FL/AC 0.24 (0.20 - 0.24*AC 16.5 cm 21w4d (20z6u-31t6i) Hadl AC 31% HC/AC | | 1.24 (1.04 - 1.23*FL 4.0 cm 22w6d (20v8k-12o8x) Hadl FL 60% CI 0.78 (0.70 - | | 0.86)GA for sonogram 22w2d (02t7k-66c1a) Weight Estimate:based on (HC,FL) Hadlock | | Weight: 482 gm (412-553gm) Hadloc | | : 1lbs, 1oz Normal: 508 gm (340-948gm) Mihaelanne | | Wt% 44% for 24l8dZpegm Heart Rate: 144 | | bpm | [...] ! ! ! x | | !Cardiac Willow/! ! ! ! x !Four Chamber ! [...] for the perinatologist on | | call. [phone] or [phone] COLLINS MD <Electronic | | Signature> 11/05/2019 [...] ask for the perinatologist on | |call. [phone] or [phone] | |GILDARDO COLLINS MD | | | [...]
--- OUTSIDE RECORDS SUMMARY | ~2020-03-06 | XMS | Encounter Summary ---
Demographics + + + | Address | [address] | | | [place] [address] | + + + | Home Phone | | + + + | Preferred Language | Unknown | + + + | Marital Status | Single | + + + | Zoroastrianism Affiliation | Unknown | + + + [...] Team Providers + +------+ + | Care Train Controller Name | Role | Phone | + +------+ + | No Pcp Per Patient | PCP | Unavailable | + +------+ + Encounter Details +--------+ + + + + | Date | Type | Department | Care Team | Description | +--------+ + + + + | 04/23/ | | [facility] | | Canceled (Provider | | 2019 | Initial | [facility] [address] | | Request) | | | | [address] [facility] | | | | | | [address] | | | | | | [address] | | | | | | [phone] | | | +--------+ + + + [...] + documented as of this encounter Progress Leonor Aquino RN - 04/23/2019 10:30 AM PDTNon viable, intake not done. See MD gamez. Madan tronically signed by Leonor Gomez RN at 04/24/2019 5:16 PM PDTdocumented in this encounte r Plan of Treatment +--------+ + + + + | Date | Type | Specialty | Care Team | Description | +--------+ + + + + | 03/08/ | | Obstetrics & | Ama Rahman | | | 2019 | | Gynecology | MD Vickie,[address] | | | | | | [place], | | | | | | [place] [address] | | | | | | [phone] | | | | | | | | +--------+ + + + + documented as of this encounter Visit Diagnoses + + | Diagnosis | + + | Possible , not yet confirmed - Primary examination or test, | | unconfirmed | + + documented in this encounter"
--- OUTSIDE RECORDS SUMMARY | ~2020-03-06 | XMS | Encounter Summary ---
Demographics + + + | Address | [address] | | | [place] [address] | + + + | Home Phone | | + + + | Preferred Language | Unknown | + + + | Marital Status | Single | + + + | Orthodox Affiliation | Unknown | + + + | Race | White | + + + | Ethnic Group | Not or | + + + Author + + + | Author | [facility] | + + + | Organization | [facility] | + + + | [...] Team Providers + +------+ + | Care Cooling Machine Operator Name | Role | Phone | + +------+ + | No Pcp Per Patient | PCP | Unavailable | + +------+ + Reason for Visit + + + | Reason | Comments | + + + | Ultrasound | follow up needed | + + + Encounter Details +--------+ + + + + | Date | Type | Department | Care Team | Description | +--------+ + + + + | 10/16/ | Telephone | [facility] | Ama Rahman | Ultrasound (follow | | 2019 | | [facility] [address] | MD Vickie,[address] | up needed) | | | | [address] | [place], | | | | | [address] [place], [place] | [place] [address] | | | | | [address] | [phone] | | | | | [phone] | | | +--------+ + + + [...] 2020 | | Gynecology | MD Vickie,[address] | | | | | | [place], | | | | | | [place] [address] | | | | | | [phone] | | | | | | | | +--------+ + + + + documented as of this encounter Visit Diagnoses Not on filedocumented in this encounter"
--- OUTSIDE RECORDS SUMMARY | ~2020-03-06 | XMS | Encounter Summary ---
Demographics + + + | Address | [address] | | | [place] [address] | + + + | Home Phone [...] Team Providers + +------+ + | Care Salicylic Acid Blender Name | Role | Phone | + +------+ + | No Pcp Per Patient | PCP | Unavailable | + +------+ + Encounter Details +--------+--------+ + + + | Date | Type | Department | Care Team | Description | +--------+--------+ + + + | 11/24/ | Travel | | | | | [...] E | | | | | | [place], | | | | | | [place] [address] | | | | | | [phone] | | | | | | | | +--------+ + + + + documented as of this encounter Visit Diagnoses Not on filedocumented in this encounter"
--- OUTSIDE RECORDS SUMMARY | ~2020-03-06 | XMS | Encounter Summary ---
Demographics + + + | Address | [address] | | | [place] [address] | + + + | Home Phone [...] Team Providers + +------+ + | Care Smoke Jumper Name | Role | Phone | + +------+ + | No Pcp Per Patient | PCP | Unavailable | + +------+ + Reason for Visit + + + | Reason | Comments | + + + | | OB exam | + + + Encounter Details +--------+ + + + + | Date | Type | Department | Care Team | Description | +--------+ + + + + | 08/18/ | | [facility] | Ita Glasgow, | (OB exam) | | 2019 | | [facility] [address] [place], [place] | | | | | [address] [place], [place] | [address] | | | | | [address] | [phone] | | | | | [phone] | | | +--------+ + + + [...] + + + | Blood Pressure | 98/68 | 08/18/2019 2:02 PM | | | | | PST [...] Weight | 56.7 kg (125 lb) | 08/18/2019 2:02 PM | | | | | PST | | + + + + + | Height | - | - | | + + + + + | Body Mass Index | 20.33 | 07/28/2019 9:25 AM | | | | | PDT | | + + + + + documented in this encounter Patient Instructions Patient Instructions Kitty Villanueva MA - 08/18/2019 2:00 PM PST Ready chapters 4 and 17 in your book. Exercise Don t stop moving now! If you have a regular exercise routine, keep at it. If you don t exercise regularly we want you to start we recommend an accumulated amount of mod erate intensity exercise for 30 minutes most, if not all, days of the week. A brisk walk is a good way to start. Regular exercise may be especially important for obese women, and may actually help prevent gestational diabetes. There are always exceptions to rules, so if you think you have a special health concern dis cuss this with your doctor or transmitter engineer. There are also some extreme variations of exercise that you might want to avoid, such as: ? extreme exertion above 6,000 feet ? contact sports (ice hockey, soccer, basketball) ? potential for falls (gymnastics, horseback riding, downhill skiing, some racquet sports) ? scuba diving Weight gain All women (and their babies!) will benefit from a weight gain within the goals see n below. These guidelines are tailored to a woman s Body Mass Index (the BMI), a formula that accounts for height and weight. BMI Recommended Weight Gain (lbs) <18.5 28-40 18-24.9 25-35 25-29.9 15-25 30-34.9 11-20 >35 0-9 Last 1 Encounter BMI Readings: Date BMI 08/18/2019 20.33 kg/m2 Women who are underweight (low BMI) may need to gain relatively more weight to ensure optim al health. Women who are overweight (higher BMI) may not need to gain much, if any, additio nal weight during . Ask your doctor or transmitter engineer how you re doing and what strateg y might be best for you. Consuming too many calories, and especially too many empty calories (high-calorie heena ds with little nutritional value), can be a problem. Not only is that weight difficult to l ose after your , but the additional calories may increase your risk for gestational diabetes, caesarean section, large baby, high blood pressure, delivery and poor wou nd healing. Try replacing empty calorie foods with these: * vegetable sticks, seasoned with a little ranch dressing * hard-boiled eggs * string cheese sticks or individual-sized cheddar cheese * an apple and peanut butter * a handful of nuts Miscarriage Lastly, a word about miscarriage. Unfortunately, miscarriages are very common. We know th at approximately 20% of pregnancies end in miscarriage. However, another 20% of healthy pre gnancies have bleeding in early . Not all uterine cramping or vaginal bleeding res ults in miscarriage. A small spot of vaginal blood in your underwear or on the toilet paper is usually nothing to worry about. Also, the occasional cramp in your uterus is probably n ot an indication of a miscarriage. However, if you experience continuous cramping and have bleeding more like a period, please let us know. The good news is if you saw a little heartb eat at your visit today your chances of miscarriage have just dropped dramatically! Weeks 10 to 14 of Your : Care Instructions Your Care Instructions By weeks 10 to 14 of your , the placenta has formed inside your uterus. It is poss ible to hear your baby's heartbeat with a special ultrasound device. Your baby's eyes can an d do move. The arms and legs can bend. This is a good time to think about testing for defects. There are two types of tests: screening and diagnostic. Screening tests show the chance that a baby has a certain d efect. They can't tell you for sure that your baby has a problem. Diagnostic tests show if a baby has a certain defect. It's your choice whether to have these tests. You and your partner can talk to your doctor or transmitter engineer about defects tests. Follow-up care is a pena part of your treatment and safety. Be sure to make and go to all ap pointments, and call your doctor if you are having problems. It's also a good idea to know y our test results and keep a list of the medicines you take. How can you care for yourself at home? Decide about tests You can have screening tests and diagnostic tests to check for defects. The decisi on to have a test for defects is personal. Think about your age, your chance of passin g on a family disease, your need to know about any problems, and what you might do after you have the test results. ? Triple or quadruple (quad) blood tests. These screening tests can be done between 15 and 20 weeks of . They check the amounts of three or four substances in your blood. The doctor looks at these test results, along with your age and other factors, to find out the chance that your baby may have certain problems. ? Amniocentesis. This diagnostic test is used to look for chromosomal problems in the baby' s cells. It can be done between 15 and 20 weeks of , usually around week 16. ? Nuchal translucency test. This test uses ultrasound to measure the thickness of the area at the back of the baby's neck. An increase in the thickness can be an early sign of Down sy ndrome. ? Chorionic villus sampling (CVS). This is a test that looks for certain genetic problems w ith your baby. The same genes that are in your baby are in the placenta. A small piece of th e placenta is taken out and tested. This test is done when you are 10 to 13 weeks . Ease discomfort Slow down and take naps when you feel tired. If your emotions swing, talk to someone. Crying, anxiety, and concentration problems are common. If your gums bleed, try a softer toothbrush. If your gums are puffy and bleed a lot, see your dentist. If you feel dizzy: ? Get up slowly after sitting or lying down. ? Drink plenty of fluids. ? Eat small snacks to keep your blood sugar stable. ? Put your head between your legs as though you were tying your shoelaces. ? Lie down with your legs higher than your head. Use pillows to prop up your feet. If you have a headache: ? Lie down. ? Ask your partner or a good friend for a neck massage. ? Try cool cloths over your forehead or across the back of your neck. ? Use acetaminophen (Tylenol) for pain relief. Do not use nonsteroidal anti-inflammatory dr ugs (NSAIDs), such as ibuprofen (Advil, Motrin) or naproxen (Aleve), unless your doctor says it is okay. If you have a nosebleed, pinch your nose gently, and hold it for a short while. To preve nt nosebleeds, try massaging a small dab of petroleum jelly, such as Vaseline, in your nostr ils. If your nose is stuffed up, try saline (saltwater) nose sprays. Do not use decongestant sprays. Care for your breasts Wear a bra that gives you good support. Know that changes in your breasts are normal. ? Your breasts may get larger and more tender. Tenderness usually gets better by 12 weeks. ? Your nipples may get darker and larger, and small bumps around your nipples may show more . ? The veins in your chest and breasts may show more. Don't worry about "toughening'" your nipples. will naturally do this. Where can you learn more? To learn more about "Weeks 10 to 14 of Your : Care Instructions", log into your My Chart account at [email or web address]. You can enter E090 in the "Health Library" [facility] box. Not on [employer]? Review the MyChart section of your After Visit Summary for directions on otto rodriguez to sign up. Current as of: June 05, 2018 Content Version: [id number] [employer] Care instructions adapted under license by [facility] [employer]. If you have questions about a medical condition or this instr uction, always ask your healthcare professional. [employer] ([employer] disclaims any barbara anty or liability for your use of this information. documented in this encounter Progress Notes Ita Glasgow MD - 08/18/2019 2:00 PM PSTFormatting of this note might be different fro m the original. OB Initial Note Patient Information Tanisha Michel is a 18 y.o. female T0 P0 L0 Mult0 Ect0 at 11w1d by LMP c/w 8 wk US who presents for OB exam. Patient reports daily nausea and vomiting. Has a hard time keeping down her PNV. Denies d izziness or lightheadedness. Still able to eat. Denies cramping, VB, abnormal discharge. Social Note: Second with , Larry. Had a miscarriage with the first. 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 Review of Systems: General: No fevers, chills. Eyes: No changes in vision loss, blurred vision. Ears, Nose and Throat: No nosebleeds, nasal congestion, difficulty swallowing, hoarseness o r sore throat. Respiratory: No shortness of breath, cough, chest discomfort or wheezing. Musculoskeletal: No joint pain, back pain, muscle aches Cardiovascular: No chest pain, skipping beats, lightheadedness, difficulty breathing, fati helena, palpitations Gastrointestinal: Pos nausea and vomiting, NO constipation, abdominal pain, diarrhea Genitourinary: No urinary frequency, blood in urine, painful urination, incontinence, urin enrique urgency, or vaginal bleeding. Neurologic: No headaches, numbness, tingling. Skin: No itching, rash Psychological: No anxiety, depression, thoughts of suicide or hallucinations. Heme/Lymphatic: No skin discoloration, abnormal bleeding Endrocrine: No heat intolerance, cold intolerance Allergic: No seasonal allergies, hives or rash History History: T0 P0 L0 Mult0 Ect0 OB History Para Term AB Living 2 1 SAB TAB Ectopic Multiple Live Births 1 # Outcome Date GA Lbr Gonzalo/2nd Weight Sex Delivery Anes PTL Lv 2 Current 1 SAB 04/23/19 8w3d Patient Active Problem List Diagnosis Date Noted Tobacco use affecting , antepartum 07/28/2019 Overview Note: 07/28/19: Smoking 3 cigarettes daily. Reviewing SCRIPT book to see if she would like to u se this program. Supervision of low-risk , first trimester 07/25/2019 Overview Note: FOB: Second Parent Name: Raheem Reyes 8-10 WEEKS (Intake & First tri U/S): Labs: [X] Rh: Lab Results Component Value Date ABO A 04/23/2019 RH Positive 04/23/2019 [ ] Antibody screen: [X] GC/CT: Neg [X] Pap: N/A [X] Urine Cx: Neg [X] Varicella: Not detected [ ] Rubella: 12-13 WEEKS (Nuchal/Exam) Carrier Screening: [ ] CF [ ] SMA Genetic Screening: [ ] SequentialScreen [ ] NIPT [ ] Nuchal U/S: mm [ ] Flu Shot (Jun-Aug) 16-18 WEEKS [ ] 2nd Sequential Screen [ ] MSAFP [ ] AFP4 20 WEEKS [ ] Ultrasound 19-20 weeks: SEX: [ ] Completion anatomy: [ ] Birthing classes 26-28 WEEKS [ ] Tdap (27-36 wks, no earlier): [ ] 1hr gtt (24-28 wks - must be completed by 28): [ ] 3hr gtt: [ ] CBC 30 WEEKS [ ] surgical booking [ ] Sterilization consent: 34-36 WEEKS [ ] GBS at 36wks: [ ] Breast Pump: [ ] 3rd tri RN Visit [ ] ppBCM: Family History Problem Relation No Known Problems Father No Known Problems Sister No Known Problems Brother No Known Problems Maternal Grandmother No Known Problems Maternal Grandfather Breast Cancer Paternal Grandmother Diabetes Paternal Grandfather No Known Problems Brother No Known Problems Sister No Known Problems Sister No Known Problems Sister Lupus Paternal Aunt Past Medical History: Diagnosis Date Anemia Social History Tobacco Use Smoking Status Current Every Day Smoker Years: 3.00 Types: Cigarettes Smokeless Tobacco Never Used Tobacco Comment will review SCRIPT book Social History Substance and Sexual Activity Alcohol Use Not Currently Social History Substance and Sexual Activity Drug Use Never Current Outpatient Medications Medication Sig vitamins (with calcium) iron-folic acid 27 mg iron- 1 mg oral tablet Take 1 ta blet by mouth once daily. No current facility-administered medications for this visit. Allergies: Patient has no known allergies. Additional Comments: BP 98/68 | Wt 56.7 kg (125 lb) | BMI 20.33 kg/m | BSA 1.62 m GENERAL PHYSICAL EXAM: General: This is a well appearing female in no apparent distress. Skin: Warm, dry and no rashes or lesions. HEENT: Normocephalic. Extraocular muscles intact. Neck: Supple. Trachea midline. No thyromegaly. No cervical or supraclavicular lymphadenop athy. Breasts: Symmetric. No dominant masses. No skin changes. No nipple discharge. No axillary lymphadenopathy. Heart: Regular rate and rhythm. No murmur appreciated Lungs: Clear to auscultation bilaterally. Abdomen: Soft. Non-tender. No Rebound. No mass. Musculoskeletal: Normal. Extremities: No edema. Non-tender. Neurological: Normal Assessment: Tainsha Michel is a 18 y.o. female T0 P0 L0 Mult0 Ect0 at 11w1d by LMP c/w 8 wk US with c/b tobacco use. Plan: - labs done and normal. - Discussed genetic screening & pt desires SIS which was drawn today. - FOB carrier of PKU: patient had single gene carrier screening today. FOB is negative for CF and SMA so she decided not to have that screening. - Nausea/vomiting: Rx for B6 and unisom provided today - Tobacco use: cut back from 1-1.5 PPD to 4-5 cig per day, plans to quit completely, encour aged her ongoing efforts RTC in 4 weeks Ita Glasgow MD documented in this en counter Plan of Treatment +--------+ + + + + | Date | Type | Specialty | Care Team | Description | +--------+ + + + + | 03/08/ | | Obstetrics & | Ama Rahman | | | 2019 | | Gynecology | MD Vickie,[address] | | | | | | [place], | | | | | | [place] [address] | | | | | | [phone] | | | | | | | | +--------+ + + + + documented as of this encounter Procedures + +--------+ + + + | Procedure Name | Priori | Date/Time | Associated Diagnosis | Comments | | | ty | | | | + +--------+ + + + | EXPANDED CARRIER | Routin | 08/18/2019 | Supervision of | Results for this | | SCREENING | e | 3:41 PM | low-risk , | procedure are in the | | | | PST | first trimester | results section. | | | | | Encounter of female | | | | | | for testing for | | | | | | genetic disease | | | | | | carrier status for | | | | | | procreative | | | | | | management Family | | | | | | history of genetic | | | | | | disease carrier | | + +--------+ + + + | SERUM INTEGRATED | Routin | 08/18/2019 | Supervision of | Results for this | | SCREEN #1 | e | 3:41 PM | low-risk , | procedure are in the | | | | PST | first trimester | results section. | | | | | Encounter of female | | | | | | for testing for | | | | | | genetic disease | | | | | | carrier status for | | | | | | procreative | | | | | | management Family | | | | | | history of genetic | | | | | | disease carrier | | + +--------+ + + + documented in this encounter Results [facility] SCREEN #1 (08/18/2019 3:41 PM PST) + + + + + + | Component | Value | Ref Range | Performed | Pathologist | | | | | At | Signature | + + + + + + | SERUM | Please see results | | [facility] | | | INTEGRATED | reported with second | | [facility] | | | SCREEN #1 | screening test. | | CENTER | | + + + + + + + + | Specimen | + + | Blood - Blood | | (substance) | + + + + + | Narrative | Performed At | + + + | Test performed by: [facility] [address] [facility] | [facility] | | [place] [address] | [facility] | + + + + + + + + | Performing | Address | City/State/Zipcode | Phone Number | | Organization | | | | + + + + + | [place] | And | [place], [place] | [phone] | | [facility] | [address] | [address] | | + + + + + CARRIER SCREEN (08/18/2019 3:41 PM PST) + + + + + + | Component | Value | Ref Range | Performed | Pathologist | | | | | At | Signature | + + + + + + | CARRIER | See scanned report | | [facility] | | | SCREEN | | | REFERENCE | | | | | | LAB | | + + + + + + + + | Specimen | + + | Blood - Blood | | (substance) | + + + + + | Narrative | Performed At | + + + | | | + + + + + + + + | Performing | Address | City/State/Zipcode | Phone Number | | Organization | | | | + + + + + | [facility] | | | | + + + + + | [facility] | See below | | | + + + + + documented in this encounter Visit Diagnoses + + | Diagnosis | + + | Encounter of female for testing for genetic disease carrier status for procreative | | management - Primary Testing of female for genetic disease carrier status | + + | Supervision of low-risk , first trimester | + + | Family history of genetic disease carrier | + + documented in this encounter
--- OUTSIDE RECORDS SUMMARY | ~2020-03-06 | XMS | Encounter Summary ---
Demographics + + + | Address | [address] | | | [place] [address] | + + + | Home Phone | | + + + | Preferred Language | Unknown | + + + | Marital Status | Single | + + + | Jewish Affiliation | Unknown | + + + | Race | White | + + + | Ethnic Group | Not or | + + + Author + + + | Author | [facility] | + + + | Organization | [facility] | + + [...] Team Providers + +------+ + | Care Internet Marketing Strategist Name | Role | Phone | + +------+ + | No Pcp Per Patient | PCP | Unavailable | + +------+ + Reason for Visit + + + | Reason | Comments | + + + | care | Brown discharge | + + + Encounter Details +--------+ + + + + | Date | Type | Department | Care Team | Description | +--------+ + + + + | 07/15/ | Telephone | [place] | Philippe, | care | | 2019 | | [facility] [address] | MD Lizabeth [address] | (Brown discharge ) | | | | [address] | | | | | [address] [place], [place] | [place], [place] | | | | | [address] | [address] | | | | | [phone] | [phone] | | | | | | | [...] | +--------+ + + + + | 06/08/ | | Obstetrics & | Ama Rahman | | | 2019 | | Gynecology | MD Vickie,[address] | | | | | | [place], | | | | | | [place] [address] | | | | | | [phone] | | | | | | | | +--------+ + + + + documented as of this encounter Visit Diagnoses Not on filedocumented in this encounter"
--- OUTSIDE RECORDS SUMMARY | ~2020-03-06 | XMS | Encounter Summary ---
Demographics + + + | Address | [address] | | | [place] [address] | + + + | Home Phone | | + + + | Preferred Language | Unknown | + + + | Marital Status | Single | + + + | Shinto Affiliation | Unknown | + + + [...] Team Providers + +------+ + | Care Plate Painter Name | Role | Phone | + [...] + + + + | 11/05/ | | [place] | | Obstetric US Scan | | 2019 | | [facility] | | | | | | E | | | | | | [address] | | | | | | [address] | | | | | | [phone] | | | +--------+ + + + [...] encounter Progress Notes Lyn Diaz MA - 11/05/2019 11:00 AM PSTSecond trimester u/s FOLLOW UP, to be read at [facility]. Lyn Diaz MA documented in this enco unter Plan of Treatment +--------+ + + + + | Date | Type | Specialty | Care Team | Description | +--------+ + + + + | 03/08/ | | Obstetrics & | Ama Rahman | | 2019 | | Gynecology | MD Vickie,[address] | | | | | | [place], | | | | | | [place] [address] | | | | | | [phone] | | | | | | | | +--------+ + + + + documented as of this encounter Procedures + +--------+ + + + | Procedure Name | Priori | Date/Time | Associated Diagnosis | Comments | | | ty | | | | + +--------+ + + + | CLINIC OB FOLLOW | Routin | 11/05/2019 | Supervision of | Results for this | | UP PER [facility]US - | e | 11:12 AM | low-risk , | procedure are in the | | EXTERNAL READ | | PST | second trimester | results section. | + +--------+ + + + documented in this encounter Results US CLINIC OB FOLLOW UP PER [facility] - EXTERNAL READ (11/05/2019 11:12 AM PST) + + | Specimen | + + | | + + + + + | Impressions | Performed At | + + + | Ultrasound exam performed at [facility] and will | [facility] | | be read/resulted at [facility]. | DEPARTMENT OF | | | RADIOLOGY [...] | Supervision of low-risk , second trimester - Primary | + + documented in this encounter"
[2020-03-06] MEDS ORDERED: PRENATAL 19 TA1 EAC1 PO (20:28)
[2020-03-06] MEDS ORDERED: FOLIXAPURE5000 UNIT PO (20:29)
--- NOTE | 2020-03-06 22:38 | PR ---
[facility] [address], [place] [address] Signed Progress Notes IP Datetime Report Generated by CPYolanda: 03/06/2020 22:38 PROGRESS NOTES: [id number] Impression: Normal progression of labor; Reassuring heart rate Procedures: Sterile Vag Exam Plan: Continue present management; Anesthesia consult Informed Consent Obtain: Vaginal Delivery Other Informed Consents: Reviewed options for pain control including epidural VITAL SIGNS: [id number] Vital Signs: Reviewed; Within Normal Limits EXAM: [id number] Dilatation: 9.0 Effacement: 100 Station: 0 Uterine Contractions: q5 min MEMBRANES: [id number] Membrane Status: Bulging Comments: Pt seen and examined. Very uncomfortable w/ contractions and now requesting epidural. Pt 9cm 95 0. Discussed may or may not be time for an epidural. FHT reassuring. Anticipate soon. Fetus A: [id number] FHR Baseline: 125 Variability: Moderate 6-25bpm Accelerations: 15X15 Decelerations: None FHR Category: Category I Presentation: Vertex Comments on Fetus A: No evidence of metabolic acidosis Fetus B: [id number] Signing Physician: Peter Tariq DO Copies: ~ *Electronically Signed* 03/06/20 3957 PETER TARIQ DO PATIENT NAME: ALICIA LANDRUM PROGRESS NOTE DATE OF : 99 PHYSICIAN: PETER TARIQ DO RPT #: [id number] REPORT IS CONFIDENTIAL AND NOT TO BE RELEASED WITHOUT AUTHORIZATION
--- NOTE | 2020-03-07 08:33 | PR ---
[facility] [address] [place], [place] [address] Signed PP Progress Notes Datetime Report Generated by CPN: 03/07/2020 08:33 SUBJECTIVE: [id number] Pain: Within normal limits Nausea/Vomiting: Denies Flatus: Yes Vital Signs: [id number] Vital Signs: Reviewed; Within Normal Limits EXAM: [id number] Cardiovascular: Normal Respiratory: Normal Abdomen/Uterus: Normal Lochia: Normal Vulva/Perineum: Not Done Breasts: Not Done CVA Tenderness: Normal Extremities: Normal Incision: Not Applicable Progress: Normal Exam Comments: Fundus firm U-2 nontender IMPRESSION/PLAN/PROCEDURES: [id number] Impression: Normal progression Plan: Continue present management Progress Notes: Pt seen and examined. Doing well. No complaints. Anticipate d/c home tomorrow Signing Physician: Peter Tariq DO Copies: ~ *Electronically Signed* 03/07/20 0833 PETER TARIQ DO PATIENT NAME: ALICIA LANDRUM PROGRESS NOTE DATE OF : 02/10/00 PHYSICIAN: PETER TARIQ DO RPT #: [id number] REPORT IS CONFIDENTIAL AND NOT TO BE RELEASED WITHOUT AUTHORIZATION
--- NOTE | 2020-03-08 07:37 | PR ---
[facility] [address] [facility] [place], [place] [address] Signed PP Progress Notes Datetime Report Generated by CPN: 03/08/2020 07:37 SUBJECTIVE: [id number] Pain: Within normal limits Nausea/Vomiting: Denies Flatus: Yes Vital Signs: [id number] Vital Signs: Reviewed; Within Normal Limits EXAM: [id number] Cardiovascular: Normal Respiratory: Normal Abdomen/Uterus: Normal Lochia: Normal Vulva/Perineum: Not Done Breasts: Not Done CVA Tenderness: Normal Extremities: Normal Incision: Not Applicable Progress: Normal Exam Comments: Fundus firm U-2 nontender IMPRESSION/PLAN/PROCEDURES: [id number] Impression: Normal progression Plan: Discharge Procedures: Varicella Progress Notes: Pt seen and examined. Doing well. No complaints. Anticipate d/c home tomorrow Signing Physician: Peter Tariq DO Copies: ~ *Electronically Signed* 03/08/20 0737 PETER TARIQ DO PATIENT NAME: ALICIA LANDRUM PROGRESS NOTE DATE OF : 99 PHYSICIAN: PETER TARIQ DO RPT #: [id number] REPORT IS CONFIDENTIAL AND NOT TO BE RELEASED WITHOUT AUTHORIZATION
== END 2020-03-08 10:33 | disposition home or self-care (01) | DRG 807 ==
LOC: FBCO 19:14 → FBC 19:45
PROVIDERS: ADMIT Obstetrics & Gynecology
PROC: 10907ZC Drainage of Amniotic Fluid, Therapeutic from Products of Conception, Via Natural or Artificial Opening (ICD-10-PCS; 2020-03-06)
PROC: 00HU33Z Insertion of Infusion Device into Spinal Canal, Percutaneous Approach (ICD-10-PCS; 2020-03-06)
PROC: 3E0R3BZ Introduction of Anesthetic Agent into Spinal Canal, Percutaneous Approach (ICD-10-PCS; 2020-03-06)
PROC: 10E0XZZ Delivery of Products of Conception, External Approach (ICD-10-PCS; principal; 2020-03-07)
PROC: 0KQM0ZZ Repair Perineum Muscle, Open Approach (ICD-10-PCS; 2020-03-07)
PROC: 0UQMXZZ Repair Vulva, External Approach (ICD-10-PCS; 2020-03-07)
PROC: 3E0234Z Introduction of Serum, Toxoid and Vaccine into Muscle, Percutaneous Approach (ICD-10-PCS; 2020-03-08)
DX: O99.334 Smoking (tobacco) complicating childbirth (principal); Z37.0 Single live birth; F17.210 Nicotine dependence, cigarettes, uncomplicated; Z3A.40 40 weeks gestation of pregnancy; O69.1XX0 Labor and delivery complicated by cord around neck, with compression, not applicable or unspecified; O70.1 Second degree perineal laceration during delivery; O71.82 Other specified trauma to perineum and vulva; Z23 Encounter for immunization
CPT/HCPCS: 36415; 59025; 85027; 90715; 99213; A9270; J2590; J7121

== ENCOUNTER 2022-09-08 20:16 | Inpatient (IN) | payer OTHER ==
[~2022-09-08] VITALS: Ht 167.6 cm; Wt 73.5 kg
[~2022-09-08 20:16] MED LIST: FOLIXAPURE5000 UNIT PO; PRENATAL 19 TA1 EAC1 PO
--- NOTE | 2022-09-08 22:10 | NUR ---
COVID SWAB DONE TO BOTH [facility] AND SENT TO IN HOUSE LAB.
== END 2022-09-10 13:05 | disposition home or self-care (01) | DRG 807 ==
LOC: FBCO 20:16 → FBC 21:30
PROVIDERS: ADMIT Obstetrics & Gynecology; ATTEND Obstetrics & Gynecology
PROC: 10E0XZZ Delivery of Products of Conception, External Approach (ICD-10-PCS; principal; 2022-09-09)
PROC: 00HU33Z Insertion of Infusion Device into Spinal Canal, Percutaneous Approach (ICD-10-PCS; 2022-09-09)
PROC: 3E0R3BZ Introduction of Anesthetic Agent into Spinal Canal, Percutaneous Approach (ICD-10-PCS; 2022-09-09)
DX: O99.334 Smoking (tobacco) complicating childbirth (principal); Z37.0 Single live birth; Z3A.39 39 weeks gestation of pregnancy; Z67.10 Type A blood, Rh positive; Z20.822 Contact with and (suspected) exposure to COVID-19; Z91.040 Latex allergy status; F17.210 Nicotine dependence, cigarettes, uncomplicated; O35.8XX0 Maternal care for other (suspected) fetal abnormality and damage, not applicable or unspecified; O99.02 Anemia complicating childbirth
CPT/HCPCS: 36415; 59025; 85027; 86850; 86900; 86901; 87502; A9270; J2590; J2795; J3010; J7121; U0003